=== PATIENT | male | born 1970 | race Caucasian/White ===

== ENCOUNTER 2017-10-30 07:25 | Inpatient (IN) | payer MEDICARE, MEDICAID, SELFPAY ==
[2017-10-30] VITALS (18 sets, daily range): BP systolic 136–206; BP diastolic 81–159; PULSE 82–111; RESP 16–24; TEMP 36.7–37; O2SAT 97–100; BMI 39.1; BMI 37.2; BMI 37.3
--- NOTE | 2017-10-30 07:39 | EKG12_ITS ---
Test Reason : SOB Blood Pressure : / mmHG Vent. Rate : 087 BPM Atrial Rate : 087 BPM P-R Int : 152 ms QRS Dur : 096 ms QT Int : 410 ms P-R-T Axes : 057 017 085 degrees QTc Int : 493 ms Normal sinus rhythm Left ventricular hypertrophy Nonspecific T wave abnormality Prolonged QT Abnormal ECG Confirmed by LO CRUZ, SRINI ([id number]), commercial production editor MEGA LAUGHLIN ([id number]) on 11/01/2017 5:58:10 PM Referred By: ARABELLA Confirmed By:SRINI BLANCHARD MD
--- NOTE | 2017-10-30 07:48 | ED.DCSUM_ITS ---
History of Present Illness Chief Complaint: Shortness of Breath Informant: Patient Onset: Weeks - 2; significantly worse x 4 hrs Context: Gradual Onset Timing: Continuous Quality: wheezing Location: chest Current Severity: Severe Maximum Severity: Severe Worsened by: lying flat Relieved by: albuterol for 5 min Associated Symptoms: cough Narrative: Patient has history of asthma. Has been experiencing some wheezing and seasonal allergy symptoms for the past 2 weeks, but woke up at 4:00 this morning significantly worse and very dyspneic. He has been outdoors lately but treating himself preemptively with allergy medications, that seem like they were helping at the time. Minor cough recently, however became productive and significantly worse this morning upon waking up dyspneic and wheezing. Has associated chest heaviness for that period of time as well. Has been using his albuterol inhaler but with only mild and temporary relief. No known history of heart problems. No peripheral swelling. - Past Medical History (1) Asthma Status: Chronic (2) Bipolar disorder Status: Chronic (3) Hypertension Status: Chronic (4) Hypertensive chronic kidney disease with stage 1 through stage 4 chronic kidney disease, or chronic kidney disease Status: Chronic Past Medical History - Allergies and Home Meds Allergies/Adverse Reactions: Allergies acetaminophen [From Vicodin] Allergy (Verified 10/30/17 07:27) Itching hydrocodone bitartrate [From Vicodin] Allergy (Verified 10/30/17 07:27) Itching Surgical History: cholecystectomy Smoking Status: Never smoker Drugs: None Review of Systems All systems negative except as indicated General: Reports: Malaise. Denies: Fever ENT: Denies: Bilateral ear pain Cardiovascular: Reports: Chest pain. Denies: Palpitations, Heart racing Respiratory: Reports: Dyspnea, Cough, Sputum, Dyspnea on exertion, Orthopnea, Paroxysmal nocturnal dyspnea - this AM Gastrointestinal: Denies: Abdominal pain, Nausea, Vomiting, Diarrhea, Melena, Hematochezia Genitourinary: Denies: Dysuria, Hematuria Musculoskeletal: Denies: Myalgias, Neck pain, Back pain Physical Exam Vital Signs/Narrative: Vital Signs Temp Pulse Resp BP Pulse Ox 10/30/17 07:25 98.6 F 103 H 24 H 177/118 H 97 Inital Vital Signs reviewed: Yes General: Well nourished, Well developed Head: Normocephalic, Atraumatic Eyes: Perrl, EOMI ENT: Moist mucous membranes, No rhinorrhea, TM's clear, - - POP clear. Negative for: Sinus tenderness Neck: Supple, Nontender, No lymphadenopathy, No JVD Cardiovascular: Regular rate, Regular rhythm, No murmurs, Tachycardia Respiratory: Wheezing - diffusely expiratory. symmetric BS bilat., Decreased Air Movement, Chest tenderness - mild right lower chest and left lateral chest, - - mild resp distress; speaking in 3-5 word sentences. Negative for: Rales, Rhonchi Abdomen: Soft, Nontender, Nondistended, Normal bowel sounds Back: Nontender, Normal Inspection Extremities: Nontender, No edema Skin: Normal color, No rash Neurological: Alert, Oriented x3, Cranial nerves II-XII grossly intact, Normal Strength, Normal Sensation Psychological: - - mildly anxious Diagnostic/Tx/Re-eval Impressions Chest X-Ray 10/30/17 08:50 IMPRESSION: Mild interstitial edema. Electronically Signed: Lalito Sanford DO at 9:10 EDT Tel , Service support , 10/30/17 08:50 Chest PA and Lateral [RAD] Stat Laboratory Results 10/30/17 10/30/17 10/30/17 Range/Units 08:05 08:05 08:05 WBC 9.9 (4.4-11.0) K/mm3 RBC 5.07 (4.6-6.2) M/mm3 Hgb 14.1 (13.0-16.5) g/dl Hct 41.8 (40-54) % MCV 82.4 (80-94) fL MCH 27.8 (27.0-32.0) pg MCHC 33.7 (32-36) g/gl RDW 15.0 H (11.6-14.6) % RDW Differential 45.1 H (35.1-43.9) fl Plt Count 238 (150-450) K/mm3 MPV 10.3 (6.2-12.0) fl Immature Gran % (Auto) 0.200 (0.0-0.9) % Neut % (Auto) 73.0 H (47-70) % Lymph % (Auto) 18.7 L (19-41) % [place] % (Auto) 5.5 (0-10) % Eos % (Auto) 2.4 (0-5) % Baso % (Auto) 0.2 (0-1) % Absolute Neuts (auto) 7.2 (2.0-7.7) X10^3/uL Absolute Lymphs (auto) 1.85 (0.83-4.51) X10^3/ul Total Counted Not Reportable Sodium 142 (136-145) mmol/L Potassium 4.2 (3.5-5.1) mmol/L Chloride 108 H (98-107) mmol/L Carbon Dioxide 23.0 (21.0-32.0) mmol/L Anion Gap 11 (5-15) BUN 20 H (7-18) mg/dL Creatinine 1.68 H (0.70-1.30) mg/dL Est GFR (MDRD) Af Amer 57 L (>60) mL/min Est GFR (MDRD) Non-Af 47 L (>60) mL/min BUN/Creatinine Ratio 11.9 (10-20) RATIO Glucose 96 (74-106) mg/dL Lactic Acid 1.6 (0.4-2.0) mmol/L Calcium 8.9 (8.5-10.1) mg/dL Troponin I < 0.015 (<0.045) ng/mL B-Natriuretic Peptide (0-100) pg/mL 10/30/17 Range/Units 08:05 WBC (4.4-11.0) K/mm3 RBC (4.6-6.2) M/mm3 Hgb (13.0-16.5) g/dl Hct (40-54) % MCV (80-94) fL MCH (27.0-32.0) pg MCHC (32-36) g/gl RDW (11.6-14.6) % RDW Differential (35.1-43.9) fl Plt Count (150-450) K/mm3 MPV (6.2-12.0) fl Immature Gran % (Auto) (0.0-0.9) % Neut % (Auto) (47-70) % Lymph % (Auto) (19-41) % [place] % (Auto) (0-10) % Eos % (Auto) (0-5) % Baso % (Auto) (0-1) % Absolute Neuts (auto) (2.0-7.7) X10^3/uL Absolute Lymphs (auto) (0.83-4.51) X10^3/ul Total Counted Sodium (136-145) mmol/L Potassium (3.5-5.1) mmol/L Chloride (98-107) mmol/L Carbon Dioxide (21.0-32.0) mmol/L Anion Gap (5-15) BUN (7-18) mg/dL Creatinine (0.70-1.30) mg/dL Est GFR (MDRD) Af Amer (>60) mL/min Est GFR (MDRD) Non-Af (>60) mL/min BUN/Creatinine Ratio (10-20) RATIO Glucose (74-106) mg/dL Lactic Acid (0.4-2.0) mmol/L Calcium (8.5-10.1) mg/dL Troponin I (<0.045) ng/mL B-Natriuretic Peptide 426.1 H (0-100) pg/mL - Rhythm Strip Rhythm Strip: Sinus Rhythm Rate: 90 Ectopy: None - EKG 1 Interpretation: Sinus Rhythm, No Acute Injury Pattern, Non-Specific ST Changes - laterally. no acute EMMY or STD., - - nml axis Prior: No Prior - old not avail - Medical Decision Making Workup shows pulmonary edema and chronic kidney disease. His BNP is 421, however in context of chronic kidney problems, this is very nonspecific and really not helpful. He is having chest discomforts, but EKG and troponin showed no acute injury. His initial blood pressure was high in 170s, so he was initially treated with nebulizers, and had some mild improvement. However, on reevaluation his blood pressure is higher, not lower. His systolic is over 200 now so we are treating with antihypertensives and will admit to the hospital. His respiratory status is relatively stable although he states he is still symptomatic, I do not think he needs to be in the ICU right now, although if he necessitated an antihypertensive drip, that could change. Dr. Kasper will evaluate. ED Disposition - Plan for ED Patient: Disposition: Acute Care Hospital [facility] Chief Complaint: Shortness of Breath Diagnosis: Pulmonary edema, Hypertensive chronic kidney disease with stage 1 through stage 4 chronic kidney disease, or chronic kidney disease, Asthma
[2017-10-30] MEDS: Ipratropium/Albuterol Sulfate 3 ML AMPUL.NEB INHALATION ×4 (07:59→23:09)
[2017-10-30] MEDS: Albuterol 2.5 MG/3 ML VIAL.NEB. INHALATION ×3 (07:59→13:19)
[2017-10-30] MEDS: MethylPREDNISolone 125 MG/2 ML Vial IV (08:13)
[2017-10-30 08:18] LABS: Absolute Lymphocyte Count 1.85 X10^3/ul (0.83-4.51); Absolute Neutrophil Count 7.2 X10^3/uL (2.0-7.7); Basophil# 0.02 X10^3/uL; Basophil% 0.2 % (0-1); Eosinophil# 0.24 X10^3/uL; Eosinophils% 2.4 % (0-5); Hematocrit 41.8 % (40-54); Hemoglobin 14.1 g/dl (13.0-16.5); Lymphocyte # 1.85 X10^3/ul (4.0); Lymphocyte % 18.7 % (19-41); Mean Corp Hgb Conc 33.7 g/gl (32-36); Mean Corpuscular Hgb 27.8 pg (27.0-32.0); Mean Corpuscular Volume 82.4 fL (80-94); Mean Platelet Vol. 10.3 fl (6.2-12.0); Monocyte# 0.54 X10^3/uL; Monocyte% 5.5 % (0-10); Neutrophil # 7.22 X10^3/uL (2.7-7.7); Platelet Count 238 K/mm3 (150-450); RBC Distribution Width SD 45.1 fl (35.1-43.9); Red Blood Count 5.07 M/mm3 (4.6-6.2); White Blood Count 9.9 K/mm3 (4.4-11.0)
[2017-10-30 08:20] LABS: POSITIVE COUNT NO; POSITIVE DIFFERENTIAL NO; POSITIVE MORPHOLOGY NO
[2017-10-30 08:34] LABS: Anion Gap 11 (5-15); BUN 20 mg/dL (7-18); BUN/Creat Ratio 11.9 RATIO (10-20); Calcium,Total 8.9 mg/dL (8.5-10.1); Chloride 108 mmol/L (98-107); Creatinine, Serum 1.68 mg/dL (0.70-1.30); EST Glomerular Filtration Rate 47 mL/min (>60); Est Glom Filt Rate - Afr Amer 57 mL/min (>60); Glucose 96 mg/dL (74-106); Potassium 4.2 mmol/L (3.5-5.1); Sodium Level 142 mmol/L (136-145)
[2017-10-30 08:39] LABS: Lactic Acid 1.6 mmol/L (0.4-2.0)
[2017-10-30 08:46] LABS: BNP,B-Type NATRIURETIC PEPTIDE 426.1 pg/mL (0-100)
--- NOTE | 2017-10-30 08:50 | RAD_ITS ---
STUDY: X-RAY CHEST REASON FOR EXAM: Male, 47 years old. Chest pain, shortness of breath TECHNIQUE: PA and lateral views of the chest. COMPARISON: 05/17/2014 FINDINGS: Cardiac monitoring leads overlie the chest. The lungs are hyperinflated. There is interstitial edema seen with Carl B lines noted at the lung bases. There is no demonstrated pleural abnormality. Normal size heart. Normal mediastinum and eris. Normal visualized pulmonary arteries. There is atherosclerotic tortuosity of the aortic arch and descending thoracic aorta. There are diffuse degenerative changes of the visualized thoracic spine. Normal visualized ribs, clavicles, and shoulders. Cholecystectomy clips are seen in the right upper quadrant of the abdomen. RAD/Chest PA and Lateral IMPRESSION: Mild interstitial edema. Electronically Signed: Lalito Sanford DO at 9:10 EDT Tel , Service support ,
--- NOTE | 2017-10-30 10:25 | DT_ITS ---
This patient was seen during an EMR downtime October 23, 2017 - October 30, 2017. This patient may have a combination of paper and electronic documentation or all paper documentation. All documentation is viewable within the e-chart portion of [facility] for each patient visit.
[2017-10-30] MEDS: hydrALAZINE 20 MG/ML Vial IV (11:00)
--- NOTE | 2017-10-30 11:19 | CASEMGMT ---
Social Work Note Face to face with pt to complete initial assessment as he is targeted for admission. Introduced self and role at [facility]. The [place]. DME consists of canes, but the pt denies using them at his baseline. He is indpenedent with ADL's and identifies his mother, brother and step mother as supports. Claims that his daughter recently moved back to the area as well. States that he gets SSI, and approximately $10,700/year. Reports to have Medicare, Medicaid and [employer] for Rx coverage. He has a hx of Bipolar II and sees a counselor. Denies substance abuse. Does not anticipate discharge needs, but is made aware that RN CM will f/u on unit to confirm. Valerie Nicole, HEALTH FACILITIES SURVEYOR, [employer]
[2017-10-30] MEDS: predniSONE 20 MG Tablet 40 MG PO (13:36)
--- NOTE | 2017-10-30 14:52 | PCM.HP.STD ---
Problem List (1) Acute asthma exacerbation Status: Acute (2) Hypertensive urgency Status: Acute (3) Pulmonary edema Status: Acute (4) Hypertensive chronic kidney disease with stage 1 through stage 4 chronic kidney disease, or chronic kidney disease Status: Chronic (5) Hypertension Status: Chronic (6) Bipolar disorder Status: Chronic (7) Asthma Status: Chronic History of Present Illness Date of Admission: 10/30/17 Chief Complaint: shortness of breath The patient is a 47 year old M presents with 1 week h/o shortness of breath. Has been having to use his MDI 4-5x/day, w/o relief (previously was 0-1 x/day). Also with PND and orthopnea. +Hemoptysis ranging from streaks to globs. CP with cough. Presented to ED and had slightly elevated BNP with CKD. Received Solu-medrol + BDs. Currently feeling better. Was also noted to be in HTN urgency w BP of 206/159. Is self-treating his BP at home given change to insurance.[] Past Medical History Past Medical History (Chronic Problems): Chronic Problems Hypertensive chronic kidney disease with stage 1 through stage 4 chronic kidney disease, or chronic kidney disease (Chronic) Hypertension (Chronic) Bipolar disorder (Chronic) Asthma (Chronic) Allergies acetaminophen [From Vicodin] Allergy (Verified 10/30/17 07:27) Itching hydrocodone bitartrate [From Vicodin] Allergy (Verified 10/30/17 07:27) Itching Home Medications: Ambulatory Orders Medication Instructions Recorded Albuterol Inhaler [Ventolin Hfa 2 puff INHALATION Q6H PRN PRN 09/13/16 (SP)] Surgical History: cholecystectomy Smoking Status: Never smoker Tobacco Use: Secondhand Drugs: None - *Family History Maternal History Items: Asthma Review of Systems Constitutional: Reports: Chills. Denies: Anorexia, Fever Eyes: Denies: Blurred vision, Double vision HEENT: Denies: Head Aches, Sinus Congestion, Sinus Drainage Cardiovascular: Reports: Chest Pain. Denies: Edema Respiratory: Reports: Cough, Hemoptysis, Shortness of Breath, Shortness of breath upon exertion, Sputum production Gastrointestinal: Denies: Abdominal Pain, Nausea, Vomiting Genitourinary: Denies: Dysuria Musculoskeletal: Denies: Joint Pain, Joint Tenderness Skin: Denies: Dryness, Lesions Neurological: Denies: Numbness, Tingling, Focal weakness Psychiatric: Denies: Anxiety, Depression Endocrine: Denies: Change in Body Habitus Hematologic/ Lymphatic: Denies: Easy Bruising, Easy Bleeding, Hx of blood clot VTE Information - Inpt Only VTE Present on Admission: No VTE Pharm Prophylaxis ordered?: Yes Patient Problems: Active and Suspected Problems Pulmonary edema (Acute) Acute asthma exacerbation (Acute) Hypertensive urgency (Acute) - Physical Exam General: Alert, Cooperative, No apparent distress, - - no resp distress. no conversational dyspnea HEENT: Atraumatic, Normocephalic Oral: Moist Mucosa, No Gingival or Mucosal Lesions/ Ulcerations Neck: No Nodes, Thyroid Normal Size and Texture Lungs: Clear to auscultation, No rhonchi, No wheeze, Diminished Cardiovascular: Regular rate, Regular Rhythm, Normal S1, Normal S2, No murmurs Abdomen: Bowel Sounds Present, Soft, Non Tender, Non-Distended, No Hepato-splenomegaly Extremities: No edema, No Calf Tenderness Skin: No rashes, No breakdown Musculoskeletal: No Tenderness to Palpation of Joints or Extremities, No Muscle Wasting Neurological: Neuro grossly intact, Muscle tone normal, Coordination normal Psych/Mental Status: Normal Affect, Appropriate Vital Signs Temp Pulse Resp BP Pulse Ox 36.7 C 98 24 H 182/94 H 98 10/30/17 11:53 10/30/17 14:47 10/30/17 14:47 10/30/17 11:53 10/30/17 13:19 Oxygen Flow Rate (L/min) 2 Oxygen Delivery Method Nasal Cannula Weight: 114.441 kg Body Mass Index (BMI) 37.2 Intake and Output for Last 24 Hours 10/28/17 10/29/17 10/30/17 23:59 23:59 23:59 Intake Total 300 / 300 Balance 300 / 300 Laboratory Tests Past 24 Hrs 10/30/17 11:55 Troponin I 0.016 Assessment/Plan All Active Problems Pulmonary edema (Acute) Acute asthma exacerbation (Acute) Hypertensive urgency (Acute) 1. Acute asthma exacerbation: BDs, prednisone follow up with pulm as outpt 2. HTN urgency: improved start Norvasc 5mg 3. Hemoptysis: check Chest CT to eval for any acute process 4. CKD 3 Monitor avoid nephrotoxic agents 5. DVT proph: SQ heparin. Code Visit Inpatient E&M: 37466 Init Hosp L3
--- NOTE | 2017-10-30 15:02 | HP.PCM_ITS ---
Problem List (1) Acute asthma exacerbation Status: Acute (2) Hypertensive urgency Status: Acute (3) Pulmonary edema Status: Acute (4) Hypertensive chronic kidney disease with stage 1 through stage 4 chronic kidney disease, or chronic kidney disease Status: Chronic (5) Hypertension Status: Chronic (6) Bipolar disorder Status: Chronic (7) Asthma Status: Chronic History of Present Illness Date of Admission: 10/30/17 Chief Complaint: shortness of breath The patient is a 47 year old M presents with 1 week h/o shortness of breath. Has been having to use his MDI 4-5x/day, w/o relief (previously was 0-1 x/day). Also with PND and orthopnea. +Hemoptysis ranging from streaks to globs. CP with cough. Presented to ED and had slightly elevated BNP with CKD. Received Solu- medrol + BDs. Currently feeling better. Was also noted to be in HTN urgency w BP of 206/159. Is self-treating his BP at home given change to insurance.[] Past Medical History Past Medical History (Chronic Problems): Chronic Problems Hypertensive chronic kidney disease with stage 1 through stage 4 chronic kidney disease, or chronic kidney disease (Chronic) Hypertension (Chronic) Bipolar disorder (Chronic) Asthma (Chronic) Allergies acetaminophen [From Vicodin] Allergy (Verified 10/30/17 07:27) Itching hydrocodone bitartrate [From Vicodin] Allergy (Verified 10/30/17 07:27) Itching Home Medications: Ambulatory Orders Medication Instructions Recorded Albuterol Inhaler [Ventolin Hfa 2 puff INHALATION Q6H PRN PRN 09/13/16 (SP)] Surgical History: cholecystectomy Smoking Status: Never smoker Tobacco Use: Secondhand Drugs: None - *Family History Maternal History Items: Asthma Review of Systems Constitutional: Reports: Chills. Denies: Anorexia, Fever Eyes: Denies: Blurred vision, Double vision HEENT: Denies: Head Aches, Sinus Congestion, Sinus Drainage Cardiovascular: Reports: Chest Pain. Denies: Edema Respiratory: Reports: Cough, Hemoptysis, Shortness of Breath, Shortness of breath upon exertion, Sputum production Gastrointestinal: Denies: Abdominal Pain, Nausea, Vomiting Genitourinary: Denies: Dysuria Musculoskeletal: Denies: Joint Pain, Joint Tenderness Skin: Denies: Dryness, Lesions Neurological: Denies: Numbness, Tingling, Focal weakness Psychiatric: Denies: Anxiety, Depression Endocrine: Denies: Change in Body Habitus Hematologic/ Lymphatic: Denies: Easy Bruising, Easy Bleeding, Hx of blood clot VTE Information - Inpt Only VTE Present on Admission: No VTE Pharm Prophylaxis ordered?: Yes Patient Problems: Active and Suspected Problems Pulmonary edema (Acute) Acute asthma exacerbation (Acute) Hypertensive urgency (Acute) - Physical Exam General: Alert, Cooperative, No apparent distress, - - no resp distress. no conversational dyspnea HEENT: Atraumatic, Normocephalic Oral: Moist Mucosa, No Gingival or Mucosal Lesions/ Ulcerations Neck: No Nodes, Thyroid Normal Size and Texture Lungs: Clear to auscultation, No rhonchi, No wheeze, Diminished Cardiovascular: Regular rate, Regular Rhythm, Normal S1, Normal S2, No murmurs Abdomen: Bowel Sounds Present, Soft, Non Tender, Non-Distended, No Hepato- splenomegaly Extremities: No edema, No Calf Tenderness Skin: No rashes, No breakdown Musculoskeletal: No Tenderness to Palpation of Joints or Extremities, No Muscle Wasting Neurological: Neuro grossly intact, Muscle tone normal, Coordination normal Psych/Mental Status: Normal Affect, Appropriate Vital Signs Temp Pulse Resp BP Pulse Ox 36.7 C 98 24 H 182/94 H 98 10/30/17 11:53 10/30/17 14:47 10/30/17 14:47 10/30/17 11:53 10/30/17 13:19 Oxygen Flow Rate (L/min) 2 Oxygen Delivery Method Nasal Cannula Weight: 114.441 kg Body Mass Index (BMI) 37.2 Intake and Output for Last 24 Hours 10/28/17 10/29/17 10/30/17 23:59 23:59 23:59 Intake Total 300 / 300 Balance 300 / 300 Laboratory Tests Past 24 Hrs 10/30/17 11:55 Troponin I 0.016 Assessment/Plan All Active Problems Pulmonary edema (Acute) Acute asthma exacerbation (Acute) Hypertensive urgency (Acute) 1. Acute asthma exacerbation: * BDs, prednisone * follow up with pulm as outpt 2. HTN urgency: * improved * start Norvasc 5mg 3. Hemoptysis: * check Chest CT to eval for any acute process 4. CKD 3 * Monitor * avoid nephrotoxic agents 5. DVT proph: SQ heparin. Code Visit Inpatient E&M: 77143 Init Hosp L3
--- NOTE | 2017-10-30 15:04 | CT_ITS ---
STUDY: CT CHEST WITHOUT CONTRAST REASON FOR EXAM: Male, 47 years old. Hemoptysis. Cough. RADIATION DOSAGE (If Supplied By Facility): CTDIvol = ( 19.23 ) mGy, DLP = ( 691.80 ) mGycm TECHNIQUE: Transaxial imaging was performed without the administration of intravenous contrast material. Coronal and sagittal reformatted images were created. Individualized dose optimization techniques were used for this CT. COMPARISON: 09/13/2016 FINDINGS: There are trace bilateral pleural effusions with overlying atelectasis. There are no pulmonary infiltrates. There is no pneumothorax. The heart and pericardium are within normal limits. There is no thoracic lymphadenopathy. There is no evidence of thoracic aortic aneurysm. Images through the upper abdomen demonstrate no significant abnormality. There are no destructive osseous lesions. CT/Chest without Contrast IMPRESSION: Trace bilateral pleural effusions with overlying atelectasis. Otherwise, clear lungs. Electronically Signed: Chung Chester, at 16:48 EDT Tel , Service support ,
[2017-10-30] MEDS: amLODIPine 5 MG Tablet PO (16:15)
[2017-10-30] MEDS: Acetaminophen 325 MG Tablet 650 MG PO (19:02)
[2017-10-30] MEDS: Heparin Injection (Vial) 5,000 UNIT/ML VIAL 5000 UNIT SC (20:56)
[2017-10-30] MEDS: Ibuprofen 600 MG Tablet PO (22:12)
[2017-10-31] VITALS (7 sets, daily range): BP systolic 147–155; BP diastolic 79–96; PULSE 94–101; RESP 16–18; TEMP 36.6–36.8; O2SAT 96–99
[2017-10-31 06:21] LABS: Anion Gap 10 (5-15); BUN 25 mg/dL (7-18); BUN/Creat Ratio 14.3 RATIO (10-20); Chloride 110 mmol/L (98-107); Creatinine, Serum 1.75 mg/dL (0.70-1.30); EST Glomerular Filtration Rate 45 mL/min (>60); Est Glom Filt Rate - Afr Amer 54 mL/min (>60); Glucose 127 mg/dL (74-106); Potassium 4.2 mmol/L (3.5-5.1); Sodium Level 139 mmol/L (136-145)
[2017-10-31] MEDS: Heparin Injection (Vial) 5,000 UNIT/ML VIAL 5000 UNIT SC (09:14)
[2017-10-31] MEDS: predniSONE 20 MG Tablet 40 MG PO (09:14)
[2017-10-31] MEDS: amLODIPine 5 MG Tablet PO (09:23)
[2017-10-31] MEDS: Ipratropium/Albuterol Sulfate 3 ML AMPUL.NEB INHALATION (11:10)
--- NOTE | 2017-10-31 12:29 | PCM.DC ---
- Discharge Diagnoses Current Active Problems: Current Active and Chronic Problems Pulmonary edema (Acute) Acute asthma exacerbation (Acute) Hypertensive urgency (Acute) Hypertensive chronic kidney disease with stage 1 through stage 4 chronic kidney disease, or chronic kidney disease (Chronic) Asthma (Chronic) You will use the following diet at home:: No restrictions Your food should be the consistency of: Regular Discharge Activity: Return to Normal Activity Allergies/Adverse Reactions: Allergies hydrocodone bitartrate [From Vicodin] Allergy (Verified 10/30/17 07:27) Itching Medications to take at Discharge Albuterol Inhaler [Ventolin Hfa] 2 puff INHALATION Q6H PRN PRN #1 inhaler 10/31/17 Budesonide/Formoterol Fumarate [Symbicort 160-4.5 Mcg Inhaler] 10.2 gm IH BID 30 Days hfa.aer.ad 10/31/17 Prednisone 10 mg PO UD #30 tab 10/31/17 The following prescriptions were given: Albuterol Inhaler [Ventolin Hfa] 2 puff INHALATION Q6H PRN PRN #1 inhaler PRN Reason: Sob &/Or Wheezing Prednisone 10 mg PO UD #30 tab Budesonide/Formoterol Fumarate [Symbicort 160-4.5 Mcg Inhaler] 10.2 gm IH BID 30 Days hfa.aer.ad Primary Care Physician: Venkat Catalan MD [Primary Care Provider] - Within 2 Weeks Proposed Discharge Date: 10/31/17
--- NOTE | 2017-10-31 12:30 | PCM.DC.SUM ---
Discharge Date and Diagnosis Date of Admission: 10/30/17 Date of Discharge: 10/31/17 - Primary Discharge Diagnosis Active and Suspected Problems Pulmonary edema (Acute) Acute asthma exacerbation (Acute) Hypertensive urgency (Acute) - Secondary Discharge Diagnosis Chronic Problems Hypertensive chronic kidney disease with stage 1 through stage 4 chronic kidney disease, or chronic kidney disease (Chronic) Hypertension (Chronic) Bipolar disorder (Chronic) Asthma (Chronic) Hospital Course and Treatment Summary of Care Provided: The patient is a 47 year old M history of asthma who presented with progressive shortness of breath for 1 week, he used his rescue inhalers at home on multiple occasions with no improvement started to come to the emergency room for further evaluation. His chest x-ray showed mild interstitial edema, CT angiogram of the chest was also obtained and demonstrated trace bilateral pleural effusions with overlying atelectasis. Otherwise clear lungs. He was diagnosed with acute asthmatic exacerbation he was given IV steroids and bronchodilators with significant improvement. To the hospital for continued bronchodilator therapy and steroid therapy. He has not improved significantly. This was also noted to have elevated blood pressure with systolic blood pressure up to 200 on arrival to the emergency room. The patient was started on amlodipine and as needed hydralazine. He is chest x-ray and CT findings of interstitial edema and bilateral pleural effusions I recommended echocardiography to evaluate EF and other structural heart disease but patient declined and insisted on going home today. Recommend he see his primary care doctor to undergo this procedure. His asthma exacerbation this has improved, he was discharged on prednisone taper, Symbicort as well as as needed albuterol. Regarding his newly diagnosed hypertension, he was discharged on Norvasc as well as hydrochlorothiazide, and he was recommended to follow-up with her primary care doctor for further management and titration of his antihypertensive therapy. Physical exam at the time of discharge; 154/96, 94, 16, 98.3, 98% on room air. He was alert and oriented to time place and person. He did not appear to be any form of distress. S1 and S2 heard no murmur or gallop Lung exam was clear to auscultation with no adventitious sounds. Abdomen was soft nontender with normal bowel sounds. extremity exam did not reveal any edema, palpable pulses bilaterally. Neurologic exam was grossly intact. Discharge Diet: No Restrictions Discharge Activity: Return to Normal Activity Home Medications: Medications to take at Discharge Albuterol Inhaler [Ventolin Hfa] 2 puff INHALATION Q6H PRN PRN #1 inhaler 10/31/17 Amlodipine Besylate [Norvasc] 5 mg PO DAILY 30 Days #30 tablet 10/31/17 Budesonide/Formoterol Fumarate [Symbicort 160-4.5 Mcg Inhaler] 10.2 gm IH BID 30 Days hfa.aer.ad 10/31/17 Hydrochlorothiazide [Hctz] 25 mg PO DAILY 30 Days #30 tablet 10/31/17 Prednisone 10 mg PO UD #30 tab 10/31/17 Following Prescrptions Were Given to Patient: Albuterol Inhaler [Ventolin Hfa] 2 puff INHALATION Q6H PRN PRN #1 inhaler PRN Reason: Sob &/Or Wheezing Amlodipine Besylate [Norvasc] 5 mg PO DAILY 30 Days #30 tablet Hydrochlorothiazide [Hctz] 25 mg PO DAILY 30 Days #30 tablet Prednisone 10 mg PO UD #30 tab Budesonide/Formoterol Fumarate [Symbicort 160-4.5 Mcg Inhaler] 10.2 gm IH BID 30 Days hfa.aer.ad Primary Care Physician: Venkat Catalan MD [Primary Care Provider] - Within 2 Weeks Disposition: Home Patient Condition:: Good Meaningful Use Info Meaningful Use Diagnoses (Choose all that apply): None applicable Code Visit Inpatient E&M: 84223 Disch Hosp
== END 2017-10-31 13:43 | disposition home or self-care (01) | DRG 202 ==
LOC: ED 10:48 → PCU 11:39
PROVIDERS: Emergency Provider Emergency Medicine; Family Provider Family Medicine; PCP Family Medicine; Visit Provider Internal Medicine
DX: J45.901 Unspecified asthma with (acute) exacerbation (principal); J81.0 Acute pulmonary edema; R04.2 Hemoptysis; I16.0 Hypertensive urgency; I12.9 Hypertensive chronic kidney disease with stage 1 through stage 4 chronic kidney disease, or unspecified chronic kidney disease; N18.3 Chronic kidney disease, stage 3 (moderate)
CPT/HCPCS: 36415; 71046; 71250; 80048; 83605; 83880; 84484; 85025; 87040; 93005; 94640; 99285; A4216

== ENCOUNTER → 2018-06-20 11:37 | Outpatient (CLI) | payer MEDICARE, MEDICAID, SELFPAY ==
[2018-06-20 14:10] LABS: Albumin, Serum 3.5 g/dL (3.2-5.0); BUN 17 mg/dL (7-18); BUN/Creat Ratio 10.8 RATIO (10-20); Calcium,Total 8.5 mg/dL (8.5-10.1); Chloride 110 mmol/L (98-107); Creatinine, Serum 1.58 mg/dL (0.70-1.30); EST Glomerular Filtration Rate 50 mL/min (>60); Est Glom Filt Rate - Afr Amer 61 mL/min (>60); Glucose 94 mg/dL (74-106); Phosphorus 2.3 mg/dL (2.5-4.9); Potassium 4.6 mmol/L (3.5-5.1); Sodium Level 139 mmol/L (136-145)
== END ==
PROVIDERS: Family Provider Family Medicine; PCP Family Medicine; Visit Provider Internal Medicine Nephrology
DX: N18.3 Chronic kidney disease, stage 3 (moderate) (principal)
CPT/HCPCS: 36415; 80069

== ENCOUNTER → 2018-07-16 09:07 | Outpatient (CLI) | payer MEDICARE, MEDICAID, SELFPAY ==
[2017-10-30 11:41] VITALS: BMI 37.2
[2018-07-16 10:00] LABS: Albumin, Serum 3.5 g/dL (3.2-5.0); BUN 17 mg/dL (7-18); BUN/Creat Ratio 10.3 RATIO (10-20); Calcium,Total 8.5 mg/dL (8.5-10.1); Chloride 110 mmol/L (98-107); Creatinine, Serum 1.65 mg/dL (0.70-1.30); EST Glomerular Filtration Rate 48 mL/min (>60); Est Glom Filt Rate - Afr Amer 58 mL/min (>60); Glucose 112 mg/dL (74-106); Phosphorus 2.9 mg/dL (2.5-4.9); Potassium 4.1 mmol/L (3.5-5.1); Sodium Level 140 mmol/L (136-145)
[2018-07-16 10:11] LABS: PTHIN 63.2 pg/mL (18.4-80.1)
== END ==
PROVIDERS: Family Provider Family Medicine; PCP Family Medicine; Referring Provider Internal Medicine Nephrology; Visit Provider Internal Medicine Nephrology
DX: N18.3 Chronic kidney disease, stage 3 (moderate) (principal)
CPT/HCPCS: 36415; 80069; 83970

== ENCOUNTER → 2019-02-28 10:29 | Outpatient (CLI) | payer MEDICARE, MEDICAID, SELFPAY ==
[2017-10-30 11:41] VITALS: BMI 37.2
[2019-02-28 13:16] LABS: Albumin, Serum 3.7 g/dL (3.2-5.0); BUN 26 mg/dL (7-18); Calcium,Total 9.3 mg/dL (8.5-10.1); Chloride 105 mmol/L (98-107); Creatinine, Serum 1.53 mg/dL (0.70-1.30); EST Glomerular Filtration Rate 52 mL/min (>60); Est Glom Filt Rate - Afr Amer 63 mL/min (>60); Glucose 101 mg/dL (74-106); Phosphorus 2.8 mg/dL (2.5-4.9); Potassium 5.3 mmol/L (3.5-5.1); Sodium Level 137 mmol/L (136-145)
[2019-02-28 13:20] LABS: PTHIN 25.6 pg/mL (18.4-80.1)
== END ==
PROVIDERS: Family Provider Family Medicine; PCP Family Medicine; Visit Provider Internal Medicine Nephrology
DX: N18.3 Chronic kidney disease, stage 3 (moderate) (principal)
CPT/HCPCS: 36415; 80069; 83970

== ENCOUNTER → 2019-09-10 15:28 | Outpatient (CLI) | payer MEDICARE, SELFPAY ==
[2017-10-30 11:41] VITALS: BMI 37.2
[2019-09-10 17:06] LABS: Albumin, Serum 3.8 g/dL (3.2-5.0); BUN 18 mg/dL (7-18); BUN/Creat Ratio 12.4 RATIO (10-20); Calcium,Total 8.4 mg/dL (8.5-10.1); Chloride 97 mmol/L (98-107); Creatinine, Serum 1.45 mg/dL (0.70-1.30); EST Glomerular Filtration Rate 55 mL/min (>60); Est Glom Filt Rate - Afr Amer 67 mL/min (>60); Glucose 95 mg/dL (74-106); Phosphorus 3.2 mg/dL (2.5-4.9); Potassium 4.5 mmol/L (3.5-5.1); Sodium Level 127 mmol/L (136-145)
== END ==
LOC: LAB.FUTURE 15:33 → LAB 15:34
PROVIDERS: PCP Family Medicine; Referring Provider Internal Medicine Nephrology; Visit Provider Internal Medicine Nephrology
DX: N18.3 Chronic kidney disease, stage 3 (moderate) (principal)
CPT/HCPCS: 36415; 80069; 83970

== ENCOUNTER → 2019-10-08 15:00 | Outpatient (CLI) | payer MEDICARE, SELFPAY ==
[2017-10-30 11:41] VITALS: BMI 37.2
[2019-10-08 15:54] LABS: Albumin, Serum 3.5 g/dL (3.2-5.0); BUN 11 mg/dL (7-18); BUN/Creat Ratio 8.3 RATIO (10-20); Calcium,Total 8.4 mg/dL (8.5-10.1); Chloride 90 mmol/L (98-107); Creatinine, Serum 1.33 mg/dL (0.70-1.30); EST Glomerular Filtration Rate 61 mL/min (>60); Est Glom Filt Rate - Afr Amer 74 mL/min (>60); Glucose 96 mg/dL (74-106); Potassium 4.5 mmol/L (3.5-5.1); Sodium Level 124 mmol/L (136-145)
--- OUTSIDE RECORDS SUMMARY | 2020-03-03 13:53 | XMS RPT_ITS | CCD ---
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 tablet by mouth twice * AMLODIPINE 10 MG TABLET Take 1 tablet by mouth once d* BUDESONIDE-FORMOTEROL HFA 160* TWICE A DAY PERFLUTREN LIPID MICROSPHERES* Inject 1.3 mL intravenously a * FLUTICASONE PROPIONATE 50 MCG* Use 2 Sprays in each nostril * TRAZODONE 100 MG TABLET take 1/2-3 tablets by mouth a* Problem List As Of Date 02/01/2019 Noted Resolved OTHER PSORIASIS [L40.8] INVALID FOR* Asthma [J45.909] INVALID FOR* Tooth, impacted [K01.1] 05/20/2015 Bipolar Affective Disorder [F31.9] Elevated Blood Pressure Reading without Diagnos*INVALID FOR* Lumbar back pain with radiculopathy affecting r*INVALID FOR* Renal failure [N19] INVALID FOR* Obesity, Class III, BMI 40-49.9 (morbid obesity*INVALID FOR* Chronic systolic CHF (congestive heart failure)*INVALID FOR* Encounter Status:Closed by BRENDEN SAUCEDO CNP on 02/01/19 tashtoutrmelody on 201 [facility] Normal 0 01-22-2019 [facility] KEVIN TONG ([id number]) 1970 [facility] Date Time Provider Department ([id number]) 01/22/19 [facility] visit today, we recorded the following informati on about you: Allergies As of Date: 01/22/2019 Noted Allergy Reaction CODEINE 03/11/2015 9 - Itching LIDOCAINE 05/12/2005 11 - Vomiting Date Reviewed: 11/07/2018 Reviewed by: Brenden Saucedo - Fully Assessed Visit Diagnoses:Obesity, Cla ss III, BMI 40-49.9 (morbid obesity) ([facility]) [E66.01] Hypertension, essential [I10] Order(s):HGB A1C [AEXCW4O] Order #: [id number] FUTURE LIPID PANEL BASIC [SQLIPB] Order #: [id number] FUTURE Prescriptions as of 01/22/2019 Sig: ALBUTEROL SULFATE HFA 90 MCG/* inhale 2 puffs as directed ev * QUETIAPINE 50 MG TABLET Take 50 mg by mouth twice victorino* OXCARBAZEPINE 300 MG TABLET Take 300 mg by mouth twice da* LISINOPRIL 20 MG TABLET Take 1 tablet by mouth twice * CARVEDILOL 25 MG TABLET Take 1 tablet by mouth twice * AMLODIPINE 10 MG TABLET Take 1 tablet by mouth once d* BUDESONIDE-FORMOTEROL HFA 160* TWICE A DAY PERFLUTREN LIPID MICROSPHERES* Inject 1.3 mL intravenously a * FLUTICASONE PROPIONATE 50 MCG* Use 2 Sprays in each nostril * TRAZODONE 100 MG TABLET take 1/2-3 tablets by mouth a* Problem List As Of Date 01/22/2019 Noted Resolved OTHER PSORIASIS [L40.8] INVALID FOR* Asthma [J45.909] INVALID FOR* Tooth, impacted [K01.1] 05/20/2015 Bipolar Affective Disorder [F31.9] Elevated Blood Pressure Reading without Diagnos*INVALID FOR* Lumbar back pain with radiculopathy affecting r*INVALID FOR* Renal failure [N19] INVALID FOR* Obesity, Class III, BMI 40-49.9 (morbid obesity*INVALID FOR* Chronic systolic CHF (congestive heart failure)*INVALID FOR* Encounter Status:Closed by EPIC, PRODUSER on 02/06/19 Summary Purpose Family History No Family History Records Found Advance Directives No Advanced Directives Records Found Additional Source Comments FOR RECORDS PERTAINING TO PATIENTS WHO ARE OR HAVE BEEN ENROLLED IN A CHEMICAL DEPENDENCY/SUBSTANCE ABUSE PROGRAM, SOME INFORMATION MAY BE OMITTED. This clinical summary was aggregated from multiple sources. Caution should be exercised in using it in the provision of clinical care. This summary normalizes information from multiple sources, and as a consequence, information in this document may materially changethe coding, format and clinical context of patient data. In addition, data may be omittedin some cases. CLINICAL DECISIONS SHOULD BE BASED ON THE PRIMARY CLINICAL RECORDS. [facility] provides no warranty or guarantee of the accuracy or completeness of information in this document. UNRECOGNIZED CONTENT PROVIDED BELOW FOR UNRECOGNIZED SECTION No Status Records Found UNRECOGNIZED CONTENT PROVIDED BELOW FOR UNRECOGNIZED SECTION INFORMATION SOURCE DATE CREATED AUTHOR AUTHOR'S ORGANIZATIO N 12/13/2019 [facility] tresa
== END ==
PROVIDERS: PCP Family Medicine; Referring Provider Internal Medicine Nephrology; Visit Provider Internal Medicine Nephrology
DX: E87.1 Hypo-osmolality and hyponatremia (principal)
CPT/HCPCS: 36415; 80069

== ENCOUNTER → 2019-10-09 15:51 | Outpatient (CLI) | payer MEDICARE, SELFPAY ==
[2017-10-30 11:41] VITALS: BMI 37.2
[2019-10-09 17:13] LABS: Urine Sodium 93 mmol/L (Not Establ.)
[2019-10-09 17:27] LABS: Osmolality, Urine 427 mOsm/KG
[2019-10-09 17:43] LABS: Anion Gap 7 (5-15); BUN 12 mg/dL (7-18); BUN/Creat Ratio 9.1 RATIO (10-20); Calcium,Total 8.4 mg/dL (8.5-10.1); Chloride 93 mmol/L (98-107); Creatinine, Serum 1.32 mg/dL (0.70-1.30); EST Glomerular Filtration Rate 61 mL/min (>60); Est Glom Filt Rate - Afr Amer 74 mL/min (>60); Glucose 93 mg/dL (74-106); Potassium 4.4 mmol/L (3.5-5.1); Sodium Level 126 mmol/L (136-145)
--- OUTSIDE RECORDS SUMMARY | 2020-03-03 14:55 | XMS RPT_ITS | CCD ---
:1970 External Reference #:[id number] Author Organization [employer] Care Team Providers Name Role Phone Unavailable Unavailable Unavailable Results Result Name Value Range Unit Interpretation Flag Date Location progress on 2019-11 PROGRESS HNO ID: [id number] Normal 11-26-2019 [facility] Author: Brenden (Sql Database Administrator) Ronaldo Tolentino ([id number]) Service: ? Author Type: Nurse Practitioner Type: [...] mg tablet take 1/2-3 tablets by mo [facility] at bedtime if needed for insomnia [...] HFA 90 MCG/ACTUATION AEROSOL INHALER Brenden Saucedo APRN.FRANCHISE SPECIALIST RTO in 3 months, sooner if needed. This note was partly generated using [employer] voice recognitio n dictation and may contain some misspelled or inaccurate words missed o n review. cnov on 2019-11-26 CNOV Office Visit (FAMPWS) Normal 11-26-19 20 [facility] KEVIN TONG ([id number]) 1970 [facility] Date Time Provider Department ([id number]) 11/26/19 2:20 PM BRENDEN SAUCEDO (TASH) PRINCESS [...] kidney disease) stage 3, GFR 30-59 ml/min ([facility]) - ICD9: 585.3, ICD10: N18.3 - Continue following with - LISINOPRIL 20 MG TABLET - COMP METABOLIC PANEL 4. Mild intermittent asthma without comp lication - ICD9: 493.90, ICD10: J45.20 Mild persistent Asthma stable - Continue current meds - Avoidance of triggers recommended - BUDESONIDE-FORMOTEROL HFA 160 MCG-4.5 MCG/ACTUATION AEROSO L INHALER - ALBUTEROL SULFATE HFA 90 MCG/ACTUATION AEROSOL INHALER Brenden Saucedo APRN.FRANCHISE SPECIALIST RTO in 3 months, sooner if needed. This note was partly generat ed using [employer] voice recognition dictation and may contain some [...] kidney disease) stage 3, GFR 30-59 ml/min ([facility]) [N18.3] Mild intermittent asthma without complication [J45.20] Order(s):carvedilol (COREG) 25 mg tabletTake 1 tablet by twice daily with meals.Disp: 60 tabletRfl: 3 lisinopril (ZESTRIL, PRINIVIL) 20 mg tabletTake 1 tablet by mouth twice daily.Disp: 60 tabletRfl: 3 amLODIPine (NORVASC) 10 mg tabletTake 1 tablet by mouth once daily.Disp: 30 tabletRfl: 3 COMP METABOLIC PANEL [SQCMP] Order #: [id number] FUTURE LIPID PANEL, NONFASTING [SQLIPNF] Order #: [id number] FUTURE budesonide-formoterol (SYMBICORT) 160-4.5 mcg/actuation inha lerTWICE [...] on 2019-09-10 CNPN Telephone (FAMPWS) Normal 09-10-2019 [facility] KEVIN TONG ([id number]) 1970 [facility] Date Time Provider Department ([id number]) 09/10/19 [facility] your visit today, we recorded the following informati on about you: Karl Ugalde RN 09/10/2019 10:27 AM Signed Brigida from Dr. Vasquez's office called, verified pt by name a nd date of . Brigida requested recent labs for pt's upcoming apt. CMP from 06-18-2019 faxed to [phone] Karl Ugalde RN Allergies As of Date: [...] on 2019-08 OBSOLETE Refill (FAMPWS) Normal 09-03-2019 [facility] KEVIN TONG ([id number]) 1970 [facility] Date Time Provider Department ([id number]) 09/03/19 RAGINI FERNANDEZ FAMPWS During your visit [...] 122/76 Please advise. Thank you. Ophelia Saucedo APRN.FRANCHISE SPECIALIST 09/03/2019 2:38 PM Signed The following approved medic ation requests have been transmitted electronically. Pending Prescriptions Disp Refills CARVEDILOL 25 MG TABLET 60 tablet 3 Sig: Take 1 tablet by mouth twice daily with meals. SWEETIE: No LISINOPRIL 20 MG TABLET 60 tablet 3 Sig: Take 1 tablet by mouth twice daily. SWEETEI: No AMLODIPINE 10 MG TABLET 30 tablet 3 Sig: Take 1 tablet by mouth once daily. SWEETIE: No Brenden Saucedo APRN.FRANCHISE SPECIALIST Allergies As of Date: 09/03/2019 Noted Allergy Reaction CODEINE 03/11/2015 9 - Itching LIDOCAINE 05/12/2005 11 - Vomiting Date Reviewed: 06/18/2019 Reviewed by: Karime Cummings) MOE Hartley - Fully Assessed Reason for Visit: Refill Request [94] Visit Diagnoses:Hypertension, essential [I10] Chronic systolic CHF (congestive heart failure) ([facility]) [I50.2 2] CKD (chronic kidney disease) stage 3, GFR 30-59 ml/min ([facility]) [N18.3] Mild intermittent asthma without complication [J45.20] [...] 09/03/19 progress on 2019-08 PROGRESS HNO ID: [id number] Normal 08-21-2019 [facility] Author: Fly MelgarRn) Tolentino ([id number]) Service: ? Author Type: Registered Nurse Type: Progress Notes Filed: 08/21/2019 7:25 PM Note Text: PRIMARY CARE COORDINATION QUICK NOTE Provider Action/FYI Call to Pt left a detailed message notified medications refi lled as noted below. Patient identified by name and date . Hubert Bill RN August 21, 2019 7:17 PM PROGRESS HNO ID: [id number] Normal 08-21-2019 [facility] Author: Brenden Flores) Ronaldo Tolentino ([id number]) Service: ? Author Type: Nurse Practitioner Type: [...] APRN.CNP progress on 2019-07 PROGRESS HNO ID: [id number] Normal 08-20-2019 [facility] Author: Fly Gar) Tolentino ([id number]) Service: ? Author Type: Registered Nurse Type: Progress Notes Filed: 08/21/2019 7:25 PM Note Text: PRIMARY CARE COORDINATION QUICK NOTE Provider Action/FYI Denies CP, Sob, edema, fever or cough, or wheezing, having normal allergy symptoms, has cough with sinus drainage when lying down, occ asional sneezing, is taking OTC antihistamines with relief Pt request for refill pended for PCP/ FRANCHISE SPECIALIST- No need for call back, he will check with Pharmacy Discussed discharge from Care Coordination services provided contact info for PCP practice for future needs or concerns. Pt verbalized understanding and appreciation. Instructed to wash hands frequently, clean surface, social d istancing. Pt verbalized understanding. Patient identified by name and date . Hubert Bill RN August 20, 2019 5:00 PM PROGRESS HNO ID: [id number] Normal 08-20-2019 [facility] Author: Fly Schmid (Rn) [facility] ([id number]) Service: ? 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) [I50.2 2] CKD (chronic kidney disease) stage 3, GFR 30-59 ml/min ([facility]) [N18.3] Mild intermittent asthma without complication [J45.20] [...] 2019-06 OBSOLETE Refill (FAMPWS) Normal [facility]09-[facility] KEVIN TONG ([id number]) 1970 [facility] Date Time Provider Department ([id number]) 07/09/19 RAGINI FERNANDEZ During your visit today, [...] ply of medication sent to pharmacy in [place] He is on vacation and forgot to [...] [I10] Chronic systolic CHF (congestive heart failure) ([facility]) [I50.2 2] CKD (chronic kidney disease) stage 3, GFR 30-59 ml/min ([facility]) [N18.3] Order(s):amLODIPine (NORVASC) 10 mg tabletTake 1 [...] 07/09/19 progress on 2019-05 PROGRESS HNO ID: [id number] Normal 06-18-2019 [facility] Author: Brenden Flores) Ronaldo Tolentino ([id number]) Service: ? Author Type: Nurse Practitioner Type: [...] Has be en given contact information for [facility]. Has been trying to improve [...] 100 mg tablet take 1/2-3 tablets by [facility] at bedtime if needed for insomnia No [...] labs, RTO in 3 months. Brenden Saucedo APRN.FRANCHISE SPECIALIST PROGRESS HNO ID: [id number] Normal 06-18-2019 [facility] Author: Fly Schmid (Rn) [facility] ([id number]) Service: ? Author Type: Registered Nurse Type: Progress Notes Filed: 06/18/2019 2:03 PM Note Text: PRIMARY CARE COORDINATION PRE-VISIT ASSESSMENT Provider Action/FYI: Spk with Pt who denies CP, Sob, denies dizziness, occassiona l ORTEGA, takes one ASA daily which helps. Pt noted has right foot pain, denies swelling or other unusu al symptoms Pt reports he is traveling to [place] AND he will verify if he needs [...] Cholesterol [Mass/Vol] 187 <200 mg/dL Normal 020 [facility] (87075) Comment: Result Comment: <200 mg/dL, Desirable 200-239 mg/dL, Borderline hi gh >239 mg/dL, High Performed By: #### CMP, LIPN F ####[facility] [place], [place] [phone] Cholesterol in 3.40 <2.54 mg/dL High 06-18-2019 [facility] LDL/Cholesterol in HDL [Mass Strong (77324) ratio] Comment: Result Comment: Reference: 1. National Cholesterol Educ ation Program ATP III Guideline At-A-Glance Quick Desk Reference: National Heart, Lung, and Blood [place]. National Institutes of Health. 2001: NIH Publication No. 01-3305. 2. An International Atherosc lerosis Society position paper: global recommendations for the management of dyslipidemia: executive summary, Atherosclerosis. 2014: 232(2):410-413. Performed By: #### CMP, LIPN F ####[facility] [place], [place] [phone] Cholesterol.total/Cholesterol in HDL 5.34 <5.10 mg/dL Hig h 06-18-2019 [facility] [Mass ratio] Manuel david (52120) Comment: Performed By: #### LEOLA LIPN F ####[place] [address] [place], [place] [phone] HDL Cholesterol, NF 35 >39 mg/dL Low 06-18-2019 [facility] (38798) Comment: Result Comment: 40-59 mg/dL, Acceptable >59 mg/dL, High: Negative ri sk factor for coronary heart disease <40 mg/dL, Low: Positive ris k factor for coronary heart disease Performed By: #### LEOLA, LIPN F ####[address] [phone] LDL Cholesterol, NF 119 <100 mg/dL High 06-18-2019 [facility] (92910) Comment: Result Comment: <100 mg/dL, Optimal 100-129 mg/dL, Near optimal/ above optimal 130-159 mg/dL, Borderline hi gh 160-189 mg/dL, High >189 mg/dL, Very high Secondary prevention optimal LDL Cholesterol levels are recommended to be < 70 mg/dL Performed By: #### LEOLA, LIPN F ####[address] [phone] Non HDL Chol, NF 152 <130 mg/dL High 06-18-2019 [facility] (62996) Comment: Result Comment: <130 mg/dL, Optimal 130-159 mg/dL, Near optimal/ above optimal 160-189 mg/dL, Borderline hi gh 190-219 mg/dL, High >219 mg/dL, Very high Secondary prevention optimal non HDL Cholesterol levels are recommended to be < 100 mg/dL Performed By: #### CMP, LIPN F ####[place] [address] [place], [place] [phone] Triglycerides, NF 163 <150 mg/dL High 06-18-2019 [facility] (15113) Comment: Result Comment: <150 mg/dL, Normal 150-199 mg/dL, Borderline hi gh 200-499 mg/dL, High >499 mg/dL, Very high Performed By: #### CMP, LIPN F ####[place] [address], [place] [phone]- [phone] VLDL Cholesterol, NF 33 <30 mg/dL High 0 [facility] (92017) Comment: Performed By: #### CMP, LIPN F ####[place] [address], [place] [phone]- [phone] comp metabolic panel on 2019-06-18 Albumin [Mass/Vol] 4.2 3.9-4.9 g/dL Normal 06-18-2019 [facility] (06710) Comment: Performed By: #### CMP, LIPN F ####[address], [place] [phone]- [phone] ALP [Catalytic activity/Vol] 70 38-113 U/L Normal 0 06-18-2019 [facility] (42945) Comment: Performed By: #### CMP, LIPN F ####[place] [address], [place] [phone] ALT [Catalytic activity/Vol] 23 10-54 U/L Normal 0 06-18-2019 [facility] (93807) Comment: Performed By: #### CMP, LIPN F ####[place] [address], [place] [phone] Anion gap [Moles/Vol] 14 9-18 mmol/L Normal 06-18-19 20 [facility] (13217) Comment: Performed By: #### CMP, LIPN F ####[place] [address], [place] [phone]- [phone] AST [Catalytic activity/Vol] 30 14-40 U/L Normal 0 06-18-2019 [facility] (91641) Comment: Performed By: #### CMP, LIPN F ####[place] [address], [place] [phone] Bilirubin [Mass/Vol] 0.3 0.2-1.3 mg/dL Normal 0 [facility] (75775) Comment: Performed By: #### LEOLA LIPN F ####[facility] [place], [place] [phone] Calcium [Mass/Vol] 8.9 8.5-10.2 mg/dL Normal 06-18-2019 [facility] (57507) Comment: Performed By: #### LEOLA LIPN F ####[place] [address] [place], [place] [phone] Chloride [Moles/Vol] 89 97-105 mmol/L Low 0 [facility] (94011) Comment: Performed By: #### LEOLA LIPN F ####[place] [address], [place] [phone] CO2 [Moles/Vol] 21 22-30 mmol/L Low 06-18-2019 [facility] (37370) Comment: Performed By: #### LEOLA LIPN F ####[facility] [place], [place] [phone] Creatinine [Mass/Vol] 1.31 0.73-1.22 mg/dL High 06-18-19 20 [facility] (61008) Comment: Performed By: #### CMP LIPN F ####[place] [address], [place] [phone]- [phone] eGFR- Amer. >60 Normal 06-18-2019 [facility] (37938) Comment: Performed By: #### LEOLA LIPN F ####[facility] [place], [place] [phone] GFR/1.73 sq M predicted among 58 . Normal 06-18-2019 [facility] non-blacks MDRD (S/P/Bld) [Vol (72570) rate/Area] Comment: Result Comment: eGFR (Estima aileen [...] GFR. Performed By: #### DEN BHAGAT F ####[facility] [address], [place] [phone] Glucose [Mass/Vol] 90 74-99 mg/dL Normal 06-18-2019 [facility] (29709) Comment: Result Comment: The [place] Diabetes Association (ADA) provides guidance for cutoff [...] for diagnosis of diabetes. Reference: Standards of [facility] Care in Diabetes 2016, [place] Diabetes Association. Diabetes Care. 2016.39(Suppl 1). Performed By: #### BRAXTON BHAGATN F ####[facility] [address], [place] [phone] Potassium [Moles/Vol] 4.7 3.7-5.1 mmol/L Normal 06-18-19 [facility] (46040) Comment: Performed By: #### LEOLA LIPN F ####[facility] [address], [place] [phone] Protein [Mass/Vol] 7.1 6.3-8.0 g/dL Normal 06-18-2019 [facility] (69372) Comment: Performed By: #### LEOLA LIPN F ####[facility] [address] [place], [place] [phone] Sodium [Moles/Vol] 124 136-144 mmol/L Low 06-18-2019 [facility] (04111) Comment: Performed By: #### LEOLA LIPN F ####[facility] [address] [place], [place] [phone]- [phone] Urea nitrogen [Mass/Vol] 15 9-24 mg/dL Normal 06-18 [facility] (66168) Comment: Performed By: #### LEOLA LIPN F ####[facility] [address] [place], [place] [phone] cnptoutreach on 202 CNPTOUTREACH Patient Outreach (FAMPWS) Normal 0 06-18-2019 [facility] KEVIN TONG ([id number]) 1970 [facility] Date Time Provider Department () 06/18/19 FLY [...] symptoms Pt reports he is traveling to [place] AND he will verify if he needs [...] Hartley - Fully Assessed Reason for Visit: Limnology Teacher Chronic Care [6449] Cmt: Jenae bean 06/18/2019 Reason For Visit [...] 2019-06-18 CNOV Office Visit (FAMPWS) Normal 06-18-[address] [place] [address] [facility] KEVIN TONG ([id number]) 1970 [facility] Date Time Provider Department (55345) 06/18/19 1:20 PM BRENDEN SAUCEDO ([facility]) FAMPWS During your visit today, we [...] weight gain or loss. [facility] Foot pain is improving. Not as bad as previously. Performing plantar fasciitis exercises. Asthma: Doing well overall. Using inhalers as prescribed. No wheezing, SOB, fevers. Taking allergy medication. Cardiomyopathy: Needing to establish with cardiology. Has been given contact information for [facility]. Has been trying to impr [...] kidney disease) stage 3, GFR 30-59 ml/min ([facility]) - ICD9: 585.3, ICD10: N18.3 - Continue following with nephrology. - COMP METABOLIC PANEL 5. Plantar fasciitis - ICD9: 728.71, ICD10: M72.2 - Improved, continue with otc treatments, exercises 6. Bipolar affective disorder, remission status unspecified ([facility]) - ICD9: 296.80, ICD10: F31.9 - Stable [...] or regular hard cheese Whole milk, cream Wecc-hqc-azls, most dairy creamers Real non-dairy whipped cream [...] cold Pasta/noodels (no egg yolks) Rice Bagels, Turkish muffins Potatoes Baked goods (cake, muffins, pancakes, [...] Snacks (In very limited amount) Sherbet, sorbet, Estonian ice, frozen yogurt, popsicles , jennifer food [...] kidney disease) stage 3, GFR 30-59 ml/min ([facility]) [N18.3] Plantar fasciitis [M72.2] Bipolar affective disorder, remission status unspecified ([facility]) [F31.9] Moderate persistent asthma with (acute) exacerbation [J45.41] Order(s):amLODIPine (NORVASC) 10 mg tabletTake 1 tablet by m outh once daily.Disp: 90 tabletRfl: 2 LIPID PANEL, NONFASTING [SQLIPNF] Order #: [id number] FUTURE COMP METABOLIC PANEL [SQCMP] Order #: [id number] FUTURE Prescriptions as of 06/18/2019 Sig: AMLODIPINE [...] or regular hard cheese Whole milk, cream Fwma-azq-erbn, most dairy creamers Real non-dairy whipped cream [...] cold Pasta/noodels (no egg yolks) Rice Bagels, Turkish muffins Potatoes Baked goods (cake, muffins, pancakes, [...] Snacks (In very limited amount) Sherbet, sorbet, Estonian ice, frozen yogurt, popsicles, tonny l food [...] * *Final Report* * * Normal 2018 [facility] AP/LAT/OBL RT DATE OF EXAM: Apr 05 2019 1:46PM [facility] WOX 5337 - XR FOOT 3V AP/LAT/OBL RT / (43485) PROCEDURE REASON: Pain of right heel * * * * Physician Interpretation * * * * EXAMINATION: XR FOOT 3V AP/LAT/OBL RT CLINICAL HISTORY: Heel pain Comparison: None RESULT: No acute fracture or dislocation. Left fifth metatarsal scre w. No aggressive lesion. IMPRESSION: No acute osseous abnormality. Precision Printing Worker: PSCB Transcribe Date/Time: Apr 06 2019 4:38A Dictated by : SANDRO HERRING MD This examination was interpreted and the report reviewed and electronically signed by: SANDRO HERRING MD on Apr 06 2019 4:40AM EST [id number] progress on 2019-03 PROGRESS HNO ID: [id number] Normal 04-05-2019 [facility] Author: Loli Mullins (Rt) Hardy Mitchell ([id number]) Service: ? Author Type: Jack Frame Tender Type: Progress Notes Filed: 04/05/2019 1:46 PM [...] 05, 2019 1:36 PM PROGRESS HNO ID: [id number] Normal 04-05-2019 [facility] Author: Brenden Tolentino ([id number]) Service: ? Author Type: Nurse Practitioner Type: [...] Has history of CKD, canno t take vermin exterminator NSAIDS. Has history of acute ankle fracture [...] CNOV Office Visit (FAMPWS) Normal 04-05-20 19 [facility] KENJIKEVIN J ([id number]) 1970 [facility] Date Time Provider Department (68186) 04/05/19 12:40 PM BRENDEN SAUCEDO ([facility]) FAMPWS During your visit today, we [...] ankle fracture many years ago of the merged [facility]. Past medical history, appointments, medications, [...] Order(s):XR FOOT GENERAL 3V AP/LAT/OBL R T [[id number]] Order #: [id number] FUTURE Prescriptions as of 04/05/2019 Sig: DIVALPROEX [...] podiatry if anything is concerning. Brenden Saucedo APRN.FRANCHISE SPECIALIST Disposition: Return if symptoms worsen or fail to improve. Follow-up and Disposition History Recorded Encounter Status:Closed by BRENDEN SAUCEDO CNP on 04/05/19 progress on 2019-03 PROGRESS HNO ID: [id number] Normal 04-01-2019 [facility] Author: Fly Schmid (Rn) [facility] ([id number]) Service: ? Author Type: Registered Nurse Type: Progress Notes Filed: 04/01/2019 4:34 PM Note Text: PRIMARY CARE COORDINATION INTAKE Provider Action/FYI: Spk with Pt he denies CP, denies Sob, has wheezing related t o allergy, uses Albuterol inhaler with relief Pt reports has slight right foot swelling and pain, requesti ng an appt with Pcp / FRANCHISE SPECIALIST, when seen recently it was not as [...] CNPTOUTREACH Patient Outreach (FAMPWS) Normal 1 06-01-2018 [facility] KEVIN TONG ([id number]) 1970 [facility] Date Time Provider Department (25805) 04/01/19 FLY SHCMID (RN) FAMPWS During your visit today, we recorded the following informati on about you: Hubert Bill RN 04/01/2019 4:34 PM Signed PRIMARY CARE COORDINATION INTAKE Provider Action/FYI: Spk with Pt he denies CP, denies Sob, has wheezing related to allergy, uses Albuterol inhaler with relief Pt reports has slight right foot swelling and pain, requesting an appt with Pcp / FRANCHISE SPECIALIST, when seen recently it was not as [...] Hartley - Fully Assessed Reason for Visit: Limnology Teacher Chronic Care [361] Cmt: Right Foot pain Reason For Visit [...] CHF (congestive heart failure)*11/03/2017 Encounter Status:Closed by FLY HUBERT Sidney on 04/01/19 progress on 2019-02 PROGRESS HNO ID: [id number] Normal 03-15-2019 [facility] Author: Brenden (Sql Database Administrator) Ronaldo Tolentino ([id number]) Service: ? Author Type: Nurse Practitioner Type: Progress Notes Filed: 03/15/2019 1:39 PM Note Text: Chief Complaint Patient presents with: F/U 3 Month HPI Kevin Tong is a 49 year old male who presents here t vince for Chronic Medical Conditions.. Patient presents office today for routine follow-up. History of hypertension and CHF. Previously referred to [facility] but has not scheduled with them. States that 2 days after I last saw him, his mother from cancer. Since this occurrence, jailyn spencer has been grieving, has been going to grief counseling at the [facility]. Has bipolar disease and is followed [...] ler TWICE A DAY perflutren lipid microspheres (DEFINDaixe) 1.1 mg/mL injection (to be provided with [...] file Gets together: Not on file Attends adventist service: Not on file Active member of [...] ic. Continue with plan to establish with [facility]. - COMP METABOLIC PANEL - [...] - Continue following with [facility]. 6. Grieving - ICD9: 309.0, ICD10: F43.21 - Continue with grieve counseling. Get labs today, RTO in 3 months. Brenden Saucedo APRN.FRANCHISE SPECIALIST hemoglobin a1c on 2 HbA1c (Bld) [Mass fraction] 5.8 4.3-5.6 % High [facility] (57432) Comment: Result Comment: [place] [employer] Association guidelines indicate that patients with HgbA1c in the range 5.7-6.4% are at increased risk for development of diabetes, and intervention by lifestyle modification may be beneficial. HgbA1c greater o r equal to 6.5% is considered diagnostic of diabetes. Performed By: #### HBA1C ### #[facility] [address] [place], [place] [phone]- [phone] HbA1c (Bld) [Mass fraction] 120 mg/dL Normal [facility] (38002) Comment: Result Comment: eAG: (Estima aileen average glucose) is a calculated value from HgbA1c and is apprenticeship training representative of the average blood glucose level in the last 2-3 month period. Performed By: #### HBA1C ### #[place] [phone] comp metabolic panel on 2019-03-15 Albumin [Mass/Vol] 4.1 3.9-4.9 g/dL Normal 03-15-2019 [facility] (47476) Comment: Performed By: #### Smiley DANIELS MP ####[address] [phone] ALP [Catalytic activity/Vol] 86 38-113 U/L Normal 1 [facility] (57269) Comment: Performed By: #### Smiley DANIELS MP ####[address] [place], [place] [phone]- [phone] ALT [Catalytic activity/Vol] 15 10-54 U/L Normal 1 [facility] (53114) Comment: Performed By: #### Smiley DANIELS MP ####[address] [phone] Anion gap [Moles/Vol] 13 9-18 mmol/L Normal 03-15- 19 [facility] (16089) Comment: Performed By: #### Smiley DANIELS MP ####[address] [place], [place] [phone] AST [Catalytic activity/Vol] 23 14-40 U/L Normal 1 [facility] (94184) Comment: Performed By: #### Smiley DANIELS MP ####[place] [address] [place], [place] [phone] Bilirubin [Mass/Vol] 0.3 0.2-1.3 mg/dL Normal 9 [facility] (51641) Comment: Performed By: #### Smiley DANIELS MP ####[place] [address] [address], [place] [phone]- [phone] Calcium [Mass/Vol] 9.3 8.5-10.2 mg/dL Normal 03-15-2019 [facility] (76712) Comment: Performed By: #### Smiley DANIELS MP ####[place] [address] [address], [place] [phone]- [phone] Chloride [Moles/Vol] 102 97-105 mmol/L Normal 9 [facility] (54707) Comment: Performed By: #### Smiley DANIELS MP ####[place] [address] [address] [place], [place] [phone]- [phone] CO2 [Moles/Vol] 22 22-30 mmol/L Normal 03-15-2019 [facility] (62272) Comment: Performed By: #### Smiley DANIELS MP ####[place] [address] [address] [place], [place] [phone] Creatinine [Mass/Vol] 1.43 0.73-1.22 mg/dL High 03-15-20 19 [facility] (30086) Comment: Performed By: #### Smiley DANIELS MP ####[place] [address] [address], [place] [phone]- [phone] eGFR- Amer. >60 Normal 03-15-2019 [facility] (12136) Comment: Performed By: #### Smiley DANIELS MP ####[place] [address] [address] [place], [place] [phone]- [phone] GFR/1.73 sq M predicted among 53 . Normal 03-15-2019 [facility] non-blacks MDRD (S/P/Bld) [Vol (68223) rate/Area] Comment: Result Comment: eGFR (Estima aileen [...] GFR. Performed By: #### Smiley DANIELS MP ####[facility] [place], [place] [phone]- [phone] Glucose [Mass/Vol] 96 74-99 mg/dL Normal 03-15-2019 [facility] (95355) Comment: Result Comment: The [place] Diabetes Association (ADA) provides guidance for cutoff [...] for diagnosis of diabetes. Reference: Standards of [facility] Care in Diabetes 2016, [place] [employer] Association. Diabetes Care. 2016.39(Suppl 1). Performed By: #### Smiley DANIELS MP ####[facility] [address] [place], [place] [phone]- [phone] Potassium [Moles/Vol] 4.4 3.7-5.1 mmol/L Normal 03-15-20 [facility] (93850) Comment: Performed By: #### Smiley DANIELS MP ####[facility] [address] [place], [place] [phone]- [phone] Protein [Mass/Vol] 7.0 6.3-8.0 g/dL Normal 03-15-2019 [facility] (48912) Comment: Performed By: #### Smiley DANIELS MP ####[facility] [place], [place] [phone]- [phone] Sodium [Moles/Vol] 137 136-144 mmol/L Normal 03-15-2019 [facility] (68975) Comment: Performed By: #### Smiley DANIELS MP ####[facility] [place], [place] [phone]- [phone] Urea nitrogen [Mass/Vol] 15 9-24 mg/dL Normal 03-15 [facility] (00245) Comment: Performed By: #### Smiley DANIELS MP ####[facility] [place], [place] [phone]- [phone] cnov on 2019-03-15 CNOV Office Visit (FAMPWS) Normal 03-15-[address] [place] [address] [facility] KEVIN TONG ([id number]) 1970 [facility] Date Time Provider Department (72079) 03/15/19 1:20 PM BRENDEN SAUCEDO ([facility]) FAMPWS During your visit today, we [...] of hypertension and CHF. Previously referred to [facility] but has not scheduled with [...] 100 mg tablet take 1/2-3 tablets by [facility] at bedtime if needed for insomnia No [...] file Gets together: Not on file Attends adventist service: Not on file Active member of [...] Asymptomatic. Continue with plan to establish with [facility]. - COMP METABOLIC PANEL - CBC + DIFF 3. Mild intermittent asthma without comp lication - ICD9: 493.90, ICD10: J45.20 Mild persistent Asthma stable - Continue current meds - Avoidance of triggers recommended 4. CKD (chronic kidney disease) stage 3, GFR 30-59 ml/min ([facility]) - ICD9: 585.3, ICD10: N18.3 - Stable, continue to monitor - COMP METABOLIC PANEL 5. Bipolar affective disorder, remission status unspecified ([facility]) - ICD9: 296.80, ICD10: F31.9 - Continue following with [facility]. 6. Grieving - ICD9: 309.0, ICD10: F43.21 - Continue with [facility] counseling. Get labs today, RTO in 3 months. Brenden Saucedo APRN.FRANCHISE SPECIALIST Referring Provider: SELF [200] Allergies As of Date: 03/15/2019 Noted Allergy Reaction CODEINE 03/11/2015 9 - Itching LIDOCAINE 05/12/2005 11 - Vomiting Date Reviewed: 03/15/2019 Reviewed by: Karime (Moe) MOE Hartley - Fully Assessed Reason for Visit: F/U 3 Month [443] Primary Visit Diagnosis:Hypertension, essential [I10] Other Visit Diagnoses:Chronic systolic CHF (congestive hea rt failure) ([facility]) [I50.22] Mild intermittent asthma without complication [J45.20] CKD (chronic kidney disease) stage 3, GFR 30-59 ml/min ([facility]) [N18.3] Bipolar affective disorder, remission status unspecified ([facility]) [F31.9] Grieving [F43.21] Order(s):COMP METABOLIC PANEL [SQCMP] Order #: [id number] ÓSCAR VALERO CBC + DIFF [SQCBCDIF] Order #: [id number] FUTURE Prescriptions as of 03/15/2019 Sig: ALBUTEROL [...] Abs Baso 0.04 <0.11 k/uL Normal 03-15-2019 [facility] (00830) Comment: Performed By: #### CBCSmiley MANCILLA MP #### [facility] [address] [place], [place] [phone] Abs Jennings 0.63 <0.87 k/uL Normal 03-15-2019 [facility] (12396) Comment: Performed By: #### CBCSmiley MANCILLA MP #### [facility] [address] [place], [place] [address] Abs Neut 3.67 1.45-7.50 k/uL Normal 03-15-2019 [facility] (17605) Comment: Performed By: #### CBCSmiley MANCILLA MP #### [facility] [address] [place], [place] [address] Absolute nRBC <0.01 <0.01 Normal 03-15-2019 [facility] (00757) Comment: Performed By: #### CBCDIF, C MP #### [facility] [address] [place] [address] Basophils/100 WBC (Bld) 0.6 % Normal 2018 [facility] (33616) Comment: Performed By: #### CBCDIF, C MP #### [facility] [address] [place] [address] DTYPE Auto Diff Normal 03-15-2019 [facility] (66813) Comment: Performed By: #### CBCDIF, C MP #### [facility] [address] [place] [phone] Eosinophils (Bld) [#/Vol] 0.54 <0.46 k/uL High 02-20 [facility] (87618) Comment: Performed By: #### CBCDIF, C MP #### [facility] [address] [place] [address] Eosinophils/100 WBC (Bld) 7.6 % Normal 02-20 [facility] (67605) Comment: Performed By: #### CBCDIF, C MP #### [facility] [address] [place] [address] Erythrocyte distribution 14.3 11.5-15.0 % Normal 03-15 [facility] width (RBC) [Ratio] [facility] (71317) Comment: Performed By: #### CBCDIF, C MP #### [facility] [address] [place] [address] Hematocrit (Bld) [Volume 40.0 39.0-51.0 % Normal 03-15 [facility] fraction] [facility] (68540) Comment: Performed By: #### CBCDIF, C MP #### [facility] [address] [place] [address] Hemoglobin (Bld) 13.0 13.0-17.0 g/dL Normal 03-15-2019 [facility] [Mass/Vol] [facility] (59859) Comment: Performed By: #### JEREMIAH C MP #### [facility] [address] [place], [place] [address] Lymphocytes (Bld) [#/Vol] 2.25 1.00-4.00 k/uL Normal 02-20 [facility] (10551) Comment: Performed By: #### JEREMIAH C MP #### [facility] [address] [place], [place] [address] Lymphocytes/100 WBC (Bld) 31.5 % Normal 02-20 [facility] (88778) Comment: Performed By: #### JEREMIAH C MP #### [address] [address] MCH (RBC) [Entitic mass] 28.4 26.0-34.0 pG Normal 03-15 [facility] (87964) Comment: Performed By: #### JEREMIAH C MP #### [facility] [address] [place], [place] [address] MCHC (RBC) [Mass/Vol] 32.5 30.5-36.0 g/dL Normal 03-15-20 19 [facility] (64519) Comment: Performed By: #### CBCLAURENT C MP #### [facility] [address] [place], [place] [address] MCV (RBC) [Entitic vol] 87.5 80.0-100.0 fL Normal 03-15 [facility] (63104) Comment: Performed By: #### CBCLAURENT C MP #### [facility] [address] [place], [place] [address] Monocytes/100 WBC (Bld) 8.8 % Normal 2018 [facility] (83850) Comment: Performed By: #### CBCLAURENT C MP #### [facility] [address] [place], [place] [address] Neutrophils/100 WBC (Bld) 51.5 % Normal 02-20 [facility] (77302) Comment: Performed By: #### CBCLAURENT C MP #### [place] [address] NRBCs 0.0 0 /100 WBC Normal 03-15-2019 [facility] (01765) Comment: Performed By: #### JEREMIAH C MP #### [address] [address] Platelet mean volume 9.5 9.0-12.7 fL Normal 9 [facility] (Bld) [Entitic vol] (97928) Comment: Performed By: #### JEREMIAH C MP #### [place] [address] [place], [place] [address] Platelets (Bld) [#/Vol] 261 150-400 k/uL Normal 2018 [facility] (43298) Comment: Performed By: #### JEREMIAH C MP #### [place] [address] [place], [place] [address] RBC (Bld) [#/Vol] 4.57 4.20-6.00 m/uL Normal 03-15-2019 [facility] (97871) Comment: Performed By: #### CBCLAURENT C MP #### [place] [address] [place], [place] [address] WBC (Bld) [#/Vol] 7.15 3.70-11.00 k/uL Normal 03-15-2019 [facility] (47267) Comment: Performed By: #### CBCLAURENT C MP #### [facility] [address] [place] [address] progress on 2019-01 PROGRESS HNO ID: [id number] Normal 02-11-2019 [facility] Author: Fly Schmid (Rn) [facility] ([id number]) Service: ? Author Type: Registered Nurse Type: [...] Dr. Fontana, discussed [facility] options [place] or [place] or Cardiology of choice. Pt will thi nk about options Appt 03/01/19 with Jenae Saucedo CNP Patient identified by name and date of . 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 Fontana, discussed [facility] options [place] or [place] or Cardiology of choice. Pt wi ll think about options Appt 03/01/19 with Jenae Saucedo CNP Patient identified by name and date of . 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 Author Type: Nurse Practitioner Type: Progress Notes Filed: 02/01/2019 1:01 PM Note Text: Noted. Brenden Saucedo APRN.TASH PROGRESS HNO ID: [id number] Normal 02-01-2019 [facility] Author: Fly Schmid (Rn) [facility] ([id number]) Service: ? Author Type: Registered Nurse Type: [...] WITHIN THE LAST 12 MONTHS: ? HOSPITAL: [facility] 10/31/17 Pulmonary Edema HTN DOES THIS PATIENT HAVE AN ADVANCE DIRECTIVE? ? No PRIMARY CARE COORDINATION OUTREACH PLAN: ? Labs pended for HM, HTN 11/07/18 BP 128/82 Appt 02/08/19 with Jenae Saucedo CNP ? Hubert Bill RN ? February 01, 2019 lipid panel, basic on 2019-02-01 Cholesterol [Mass/Vol] 219 <200 mg/dL High 019 [facility] (30691) Comment: Result Comment: <200 mg/dL, Desirable 200-239 mg/dL, Borderline hi gh >239 mg/dL, High Performed By: #### LIPB #### [facility] [address] [place], [place] [address] Cholesterol in HDL 42 >39 mg/dL Normal 02-01-2019 [facility] [Mass/Vol] (30425) Comment: Result Comment: 40-59 mg/dL, Acceptable >59 mg/dL, High: Negative ri sk factor for coronary heart disease <40 mg/dL, Low: Positive ris k factor for coronary heart disease Performed By: #### LIPB #### [facility] [address] [place], [place] [address] Cholesterol in LDL 159 <100 mg/dL High 02-01-2019 [facility] [Mass/Vol] (88536) Comment: Result Comment: <100 mg/dL, Optimal 100-129 mg/dL, Near optimal/ above optimal 130-159 mg/dL, Borderline hi gh 160-189 mg/dL, High >189 mg/dL, Very high Secondary prevention optimal LDL Cholesterol levels are recommended to be < 70 mg/dL Performed By: #### LIPB #### [facility] [address] [place] [address] Fasting Time 12 hrs Normal 02-01-2019 [facility] (48181) Comment: Performed By: #### LIPB #### [place] [address] [place] [address] LDL:HDL Ratio 3.79 <2.54 High 02-01-2019 [facility] (52851) Comment: Result Comment: Reference: 1. National Cholesterol Educ ation Program ATP III Guideline At-A-Glance Quick Desk Reference: National Heart, Lung, and Blood [place]. National Institutes of Health. 2001: NIH Publication No. 01-3305. 2. An International Atherosc lerosis Society position paper: global recommendations for the management of dyslipidemia: executive summary, Atherosclerosis. 2014: 232(2):410-413. Performed By: #### LIPB #### [facility] [address] [place], [place] [address] Non HDL Cholesterol 177 <130 mg/dL High 02-01-2019 [facility] (15124) Comment: Result Comment: <130 mg/dL, Optimal 130-159 mg/dL, Near optimal/ above optimal 160-189 mg/dL, Borderline hi gh 190-219 mg/dL, High >219 mg/dL, Very high Secondary prevention optimal non HDL Cholesterol levels are recommended to be < 100 mg/dL Performed By: #### LIPB #### [facility] [address] [place] [id number] TC:HDL Ratio 5.21 <5.10 High 02-01-2019 [facility] (30491) Comment: Performed By: #### LIPB #### [facility] [address] [place] [address] Triglyceride [Mass/Vol] 89 <150 mg/dL Normal 2018 [facility] (41666) Comment: Result Comment: <150 mg/dL, Normal 150-199 mg/dL, Borderline hi gh 200-499 mg/dL, High >499 mg/dL, Very high Performed By: #### LIPB #### [facility] [address] [place] [address] VLDL Cholesterol 18 <30 mg/dL Normal 02-01-2019 [facility] (29176) Comment: Performed By: #### LIPB #### [facility] [address] [place] [id number] cnptoutreach on 201 01-28-13 CNPTOUTREACH Patient Outreach (FAMPWS) Normal 0 02-01-2019 [facility] KEVIN TONG ([id number]) 1970 [facility] Date Time Provider Department (58199) 02/01/19 FLY SCHMID (RN) FAMPWS During your visit today, we recorded the following informati on about you: Hubert Bill RN 02/01/2019 1:01 PM Signed PRIMARY CARE [...] WITHIN THE LAST 12 MONTHS: ? HOSPITAL: 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- Other [5739] Cmt: ACO Prescriptions as of 02/01/2019 Sig: [...] CNP on 02/01/19 tashtoutrmelody on 201 01-28-03 [facility] Normal 0 01-22-2019 [facility] KEVIN TONG ([id number]) 1970 [facility] Date Time Provider Department (91052) 01/22/19 [facility] During your visit today, we recorded the following informati on about you: Allergies As of Date: 01/22/2019 Noted Allergy Reaction CODEINE 03/11/2015 9 - Itching LIDOCAINE 05/12/2005 11 - Vomiting Date Reviewed: 11/07/2018 Reviewed by: Brenden Saucedo - Fully Assessed Visit Diagnoses:Obesity, Cla ss III, BMI 40-49.9 (morbid obesity) ([facility]) [E66.01] Hypertension, essential [I10] Order(s):HGB A1C [KQGVC5D] Order #: [id number] FUTURE LIPID PANEL BASIC [SQLIPB] Order #: [id number] FUTURE Prescriptions as of 01/22/2019 Sig: ALBUTEROL [...] BE BASED ON THE PRIMARY CLINICAL RECORDS. [facility] provides no warranty or guarantee of the accuracy or completeness of information in this document. UNRECOGNIZED CONTENT PROVIDED BELOW FOR UNRECOGNIZED SECTION No Status Records Found UNRECOGNIZED CONTENT PROVIDED BELOW FOR UNRECOGNIZED SECTION INFORMATION SOURCE DATE CREATED AUTHOR AUTHOR'S ORGANIZATIO N 12/13/2019 [facility] tresa
== END ==
LOC: LAB.FUTURE 15:53 → LAB 15:55
PROVIDERS: PCP Family Medicine; Referring Provider Internal Medicine Nephrology; Visit Provider Internal Medicine Nephrology
DX: E87.1 Hypo-osmolality and hyponatremia (principal)
CPT/HCPCS: 36415; 80048; 83935; 84300

== ENCOUNTER → 2019-10-25 14:16 | Outpatient (CLI) | payer MEDICARE, SELFPAY ==
[2017-10-30 11:41] VITALS: BMI 37.2
[2019-10-25 16:23] LABS: Anion Gap 9 (5-15); BUN 13 mg/dL (7-18); BUN/Creat Ratio 10.5 RATIO (10-20); Calcium,Total 8.7 mg/dL (8.5-10.1); Chloride 92 mmol/L (98-107); Creatinine, Serum 1.24 mg/dL (0.70-1.30); EST Glomerular Filtration Rate 66 mL/min (>60); Est Glom Filt Rate - Afr Amer 80 mL/min (>60); Glucose 85 mg/dL (74-106); Potassium 4.2 mmol/L (3.5-5.1); Sodium Level 126 mmol/L (136-145)
--- OUTSIDE RECORDS SUMMARY | 2020-03-08 08:38 | XMS RPT_ITS | CCD ---
:1970 External Reference #:[id number] Author Organization [employer] Care Team Providers Name Role Phone Unavailable Unavailable Unavailable Results Result Name Value Range Unit Interpretation Flag Date Location progress on 2019-11 PROGRESS HNO ID: [id number] Normal 11-26-2019 [facility] Author: Brenden (Transmission Operator) Ronaldo Tolentino ([id number]) Service: ? Author Type: Nurse Practitioner Type: [...] mg tablet take 1/2-3 tablets by mo [facility] at bedtime if needed for insomnia No [...] HFA 90 MCG/ACTUATION AEROSOL INHALER Brenden Saucedo APRN.HEMSTITCHING MACHINE OPERATOR RTO in 3 months, sooner if needed. This note was partly generated using [employer] voice recognitio n dictation and may contain some misspelled or inaccurate words missed o n review. cnov on 2019-11-26 CNOV Office Visit (FAMPWS) Normal 11-26-[address] [facility] KEVIN TONG ([id number]) 1970 [facility] Date Time Provider Department ([id number]) 11/26/19 2:20 PM BRENDEN SAUCEDO (TASH) PRINCESS [...] stage 3, GFR 30-59 ml/min ([facility]) - ICD9: 585.3, ICD10: N18.3 - Continue following with - LISINOPRIL 20 MG TABLET - COMP METABOLIC PANEL 4. Mild intermittent asthma without comp lication - ICD9: 493.90, ICD10: J45.20 Mild persistent Asthma stable - Continue current meds - Avoidance of triggers recommended - BUDESONIDE-FORMOTEROL HFA 160 MCG-4.5 MCG/ACTUATION AEROSO L INHALER - ALBUTEROL SULFATE HFA 90 MCG/ACTUATION AEROSOL INHALER Brenden Saucedo APRN.HEMSTITCHING MACHINE OPERATOR RTO in 3 months, sooner if needed. This note was partly generat ed using [employer] voice recognition dictation and may contain some [...] stage 3, GFR 30-59 ml/min ([facility]) [N18.3] Mild intermittent asthma without complication [J45.20] Order(s):carvedilol (COREG) 25 mg tabletTake 1 tablet by twice daily with meals.Disp: 60 tabletRfl: 3 lisinopril (ZESTRIL, PRINIVIL) 20 mg tabletTake 1 tablet by mouth twice daily.Disp: 60 tabletRfl: 3 amLODIPine (NORVASC) 10 mg tabletTake 1 tablet by mouth once daily.Disp: 30 tabletRfl: 3 COMP METABOLIC PANEL [SQCMP] Order #: [id number] FUTURE LIPID PANEL, NONFASTING [SQLIPNF] Order #: [id number] FUTURE budesonide-formoterol (SYMBICORT) 160-4.5 mcg/actuation inha lerTWICE [...] on 2019-09-10 CNPN Telephone (FAMPWS) Normal 09-10-[address] [facility] KEVIN TONG ([id number]) 1970 [facility] Date Time Provider Department ([id number]) 09/10/19 [facility] your visit today, we recorded the following informati on about you: Karl Ugalde RN 09/10/2019 10:27 AM Signed Brigida from Dr. Vasquez's office called, verified pt by name a nd date of . Brigida requested recent labs for pt's upcoming apt. CMP from 06-18-2019 faxed to [phone] Karl Ugalde RN Allergies As of Date: [...] on 2019-08 OBSOLETE Refill (FAMPWS) Normal 09-03-2019 [facility] KEVIN TONG ([id number]) 1970 [facility] Date Time Provider Department ([id number]) 09/03/19 RAGINI FERNANDEZ FAMPWS During your visit [...] 122/76 Please advise. Thank you. Ophelia Saucedo APRN.HEMSTITCHING MACHINE OPERATOR 09/03/2019 2:38 PM Signed The following approved [...] mouth once daily. SWEETIE: No Brenden Saucedo APRN.HEMSTITCHING MACHINE OPERATOR Allergies As of Date: 09/03/2019 Noted Allergy Reaction CODEINE 03/11/2015 9 - Itching LIDOCAINE 05/12/2005 11 - Vomiting Date Reviewed: 06/18/2019 Reviewed by: Karime Cummings) MOE Hartley - Fully Assessed Reason for Visit: Refill Request [94] Visit Diagnoses:Hypertension, essential [I10] Chronic systolic CHF (congestive heart failure) ([facility]) [I50.2 2] CKD (chronic kidney disease) stage 3, GFR 30-59 ml/min ([facility]) [N18.3] Mild intermittent asthma without complication [J45.20] [...] 09/03/19 progress on 2019-08 PROGRESS HNO ID: [id number] Normal 08-21-2019 [facility] Author: Fly MelgarRn) Tolentino ([id number]) Service: ? Author Type: Registered Nurse Type: Progress Notes Filed: 08/21/2019 7:25 PM Note Text: PRIMARY CARE COORDINATION QUICK NOTE Provider Action/FYI Call to Pt left a detailed message notified medications refi lled as noted below. Patient identified by name and date . Hubetr Bill RN August 21, 2019 7:17 PM PROGRESS HNO ID: [id number] Normal 08-21-2019 [facility] Author: Brenden Flores) Ronaldo Tolentino ([id number]) Service: ? Author Type: Nurse Practitioner Type: [...] APRN.CNP progress on 2019-07 PROGRESS HNO ID: [id number] Normal 08-20-2019 [facility] Author: Fly Gar) Tolentino ([id number]) Service: ? Author Type: Registered Nurse Type: Progress Notes Filed: 08/21/2019 7:25 PM Note Text: PRIMARY CARE COORDINATION QUICK NOTE Provider Action/FYI Denies CP, Sob, edema, fever or cough, or wheezing, having normal allergy symptoms, has cough with sinus drainage when lying down, occ asional sneezing, is taking OTC antihistamines with relief Pt request for refill pended for PCP/ HEMSTITCHING MACHINE OPERATOR- No need for call back, he will check with Pharmacy Discussed discharge from Care Coordination services provided contact info for PCP practice for future needs or concerns. Pt verbalized understanding and appreciation. Instructed to wash hands frequently, clean surface, social d istancing. Pt verbalized understanding. Patient identified by name and date . Hubert Bill RN August 20, 2019 5:00 PM PROGRESS HNO ID: [id number] Normal 08-20-2019 [facility] Author: Fly Schmid (Rn) [place] ([id number]) Service: ? 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 KEVIN TONG ([id number]) 1970 [facility] Date Time Provider Department ([id number]) 07/09/19 RAGINI FERNANDEZ During your visit today, [...] ply of medication sent to pharmacy in [place] He is on vacation and forgot to [...] systolic CHF (congestive heart failure) ([facility]) [I50.2 2] CKD (chronic kidney disease) stage 3, GFR 30-59 ml/min ([facility]) [N18.3] Order(s):amLODIPine (NORVASC) 10 mg tabletTake 1 [...] 07/09/19 progress on 2019-05 PROGRESS HNO ID: [id number] Normal 06-18-2019 [facility] Author: Brenden Flores) Ronaldo Tolentino ([id number]) Service: ? Author Type: Nurse Practitioner Type: [...] Has be en given contact information for [email or web address]. Has been trying to improve [...] 100 mg tablet take 1/2-3 tablets by [facility] at bedtime if needed for insomnia [...] labs, RTO in 3 months. Brenden Saucedo APRN.HEMSTITCHING MACHINE OPERATOR PROGRESS HNO ID: [id number] Normal 06-18-2019 [facility] Author: Fly Schmid (Rn) [place] ([id number]) Service: ? Author Type: Registered Nurse Type: Progress Notes Filed: 06/18/2019 2:03 PM Note Text: PRIMARY CARE COORDINATION PRE-VISIT ASSESSMENT Provider Action/FYI: Spk with Pt who denies CP, Sob, denies dizziness, occassiona l ORTEGA, takes one ASA daily which helps. Pt noted has right foot pain, denies swelling or other unusu al symptoms Pt reports he is traveling to [place] AND he will verify if he needs any medications prior to 06/18/2019 Appt with Jenae Sauecdo CNP Pt is managing his stress better [...] Cholesterol [Mass/Vol] 187 <200 mg/dL Normal 020 [facility] (93166) Comment: Result Comment: <200 mg/dL, Desirable 200-239 mg/dL, Borderline hi gh >239 mg/dL, High Performed By: #### CMP, LIPN F ####[facility] [place], [place] [phone]- [phone] Cholesterol in 3.40 <2.54 mg/dL High 06-18-2019 [facility] LDL/Cholesterol in HDL [Mass [place] (99660) ratio] Comment: Result Comment: Reference: 1. National Cholesterol Educ ation Program ATP III Guideline At-A-Glance Quick Desk Reference: National Heart, Lung, and Blood [place]. National Institutes of Health. 2001: NIH Publication No. 01-3305. 2. An International Atherosc lerosis Society position paper: global recommendations for the management of dyslipidemia: executive summary, Atherosclerosis. 2014: 232(2):410-413. Performed By: #### CMP, LIPN F ####[facility] [place], [place] [phone]- [phone] Cholesterol.total/Cholesterol in HDL 5.34 <5.10 mg/dL Hig h 06-18-2019 [facility] [Mass ratio] Manuel david (83948) Comment: Performed By: #### LEOLA LIPN F ####[place] [address] [place], [place] [phone]- [phone] HDL Cholesterol, NF 35 >39 mg/dL Low 06-18-2019 [facility] (14043) Comment: Result Comment: 40-59 mg/dL, Acceptable >59 mg/dL, High: Negative ri sk factor for coronary heart disease <40 mg/dL, Low: Positive ris k factor for coronary heart disease Performed By: #### LEOLA, LIPN F ####[address] [phone] LDL Cholesterol, NF 119 <100 mg/dL High 06-18-2019 [facility] (24070) Comment: Result Comment: <100 mg/dL, Optimal 100-129 mg/dL, Near optimal/ above optimal 130-159 mg/dL, Borderline hi gh 160-189 mg/dL, High >189 mg/dL, Very high Secondary prevention optimal LDL Cholesterol levels are recommended to be < 70 mg/dL Performed By: #### LEOLA, LIPN F ####[address] [phone] Non HDL Chol, NF 152 <130 mg/dL High 06-18-2019 [facility] (41765) Comment: Result Comment: <130 mg/dL, Optimal 130-159 mg/dL, Near optimal/ above optimal 160-189 mg/dL, Borderline hi gh 190-219 mg/dL, High >219 mg/dL, Very high Secondary prevention optimal non HDL Cholesterol levels are recommended to be < 100 mg/dL Performed By: #### CMP, LIPN F ####[place] [address] [place], [place] [phone] Triglycerides, NF 163 <150 mg/dL High 06-18-2019 [facility] (91492) Comment: Result Comment: <150 mg/dL, Normal 150-199 mg/dL, Borderline hi gh 200-499 mg/dL, High >499 mg/dL, Very high Performed By: #### CMP, LIPN F ####[place] [address], [place] [phone] VLDL Cholesterol, NF 33 <30 mg/dL High 0 [facility] (45400) Comment: Performed By: #### CMP, LIPN F ####[place] [address], [place] [phone] comp metabolic panel on 2019-06-18 Albumin [Mass/Vol] 4.2 3.9-4.9 g/dL Normal 06-18-2019 [facility] (14374) Comment: Performed By: #### CMP, LIPN F ####[address], [place] [phone]- [phone] ALP [Catalytic activity/Vol] 70 38-113 U/L Normal 0 06-18-2019 [facility] (53087) Comment: Performed By: #### CMP, LIPN F ####[place] [address], [place] [phone]- [phone] ALT [Catalytic activity/Vol] 23 10-54 U/L Normal 0 06-18-2019 [facility] (32009) Comment: Performed By: #### CMP, LIPN F ####[place] [address], [place] [phone]- [phone] Anion gap [Moles/Vol] 14 9-18 mmol/L Normal 06-18-19 20 [facility] (42042) Comment: Performed By: #### CMP, LIPN F ####[place] [address], [place] [phone]- [phone] AST [Catalytic activity/Vol] 30 14-40 U/L Normal 0 06-18-2019 [facility] (37070) Comment: Performed By: #### CMP, LIPN F ####[place] [address], [place] [phone] Bilirubin [Mass/Vol] 0.3 0.2-1.3 mg/dL Normal 0 [facility] (96815) Comment: Performed By: #### LEOLA LIPN F ####[facility] [place], [place] [phone] Calcium [Mass/Vol] 8.9 8.5-10.2 mg/dL Normal 06-18-2019 [facility] (05624) Comment: Performed By: #### LEOLA LIPN F ####[place] [address] [place], [place] [phone] Chloride [Moles/Vol] 89 97-105 mmol/L Low 0 [facility] (47954) Comment: Performed By: #### LEOLA LIPN F ####[place] [address], [place] [phone]- [phone] CO2 [Moles/Vol] 21 22-30 mmol/L Low 06-18-2019 [facility] (07936) Comment: Performed By: #### LEOLA LIPN F ####[facility] [place], [place] [phone] Creatinine [Mass/Vol] 1.31 0.73-1.22 mg/dL High 06-18-19 20 [facility] (00709) Comment: Performed By: #### CMP LIPN F ####[place] [address], [place] [phone]- [phone] eGFR- Amer. >60 Normal 06-18-2019 [facility] (29755) Comment: Performed By: #### LEOLA LIPN F ####[facility] [place], [place] [phone] GFR/1.73 sq M predicted among 58 . Normal 06-18-2019 [facility] non-blacks MDRD (S/P/Bld) [Vol (52870) rate/Area] Comment: Result Comment: eGFR (Estima aileen [...] GFR. Performed By: #### DEN BHAGAT F ####[facility] [address], [place] [phone]- [phone] Glucose [Mass/Vol] 90 74-99 mg/dL Normal 06-18-2019 [facility] (15645) Comment: Result Comment: The [place] Diabetes Association (ADA) provides guidance for cutoff [...] for diagnosis of diabetes. Reference: Standards of [facility] Care in Diabetes 2016, [place] Diabetes Association. Diabetes Care. 2016.39(Suppl 1). Performed By: #### BRAXTON BHAGATN F ####[facility] [address], [place] [phone]- [phone] Potassium [Moles/Vol] 4.7 3.7-5.1 mmol/L Normal 06-18-19 [facility] (17356) Comment: Performed By: #### LEOLA LIPN F ####[facility] [address], [place] [phone] Protein [Mass/Vol] 7.1 6.3-8.0 g/dL Normal 06-18-2019 [facility] (30782) Comment: Performed By: #### LEOLA LIPN F ####[facility] [address] [place], [place] [phone] Sodium [Moles/Vol] 124 136-144 mmol/L Low 06-18-2019 [facility] (22509) Comment: Performed By: #### LEOLA LIPN F ####[facility] [address] [place], [place] [phone] Urea nitrogen [Mass/Vol] 15 9-24 mg/dL Normal 06-18 [facility] (35673) Comment: Performed By: #### LEOLA LIPN F ####[facility] [address] [place], [place] [phone]- [phone] cnptoutreach on 202 CNPTOUTREACH Patient Outreach (FAMPWS) Normal 0 06-18-[address] 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 KEVIN TONG ([id number]) 1970 [facility] Date Time Provider Department (87198) 06/18/19 1:20 PM BRENDEN SAUCEDO ([facility]) FAMPWS During your visit today, we [...] [facility] gain or loss. [facility] Foot pain is improving. Not as bad as previously. Performing plantar fasciitis exercises. Asthma: Doing well overall. Using inhalers as prescribed. No wheezing, SOB, fevers. Taking allergy medication. Cardiomyopathy: Needing to establish with cardiology. Has been given contact information for [email or web address]. Has been trying to impr [...] stage 3, GFR 30-59 ml/min ([facility]) - ICD9: 585.3, ICD10: N18.3 - Continue following with nephrology. - COMP METABOLIC PANEL 5. Plantar fasciitis - ICD9: 728.71, ICD10: M72.2 - Improved, continue with otc treatments, exercises 6. Bipolar affective disorder, remission status unspecified ([facility]) - ICD9: 296.80, ICD10: F31.9 - Stable [...] or regular hard cheese Whole milk, cream Ilmm-ehp-ylzv, most dairy creamers Real non-dairy whipped cream [...] cold Pasta/noodels (no egg yolks) Rice Bagels, Slovenian muffins Potatoes Baked goods (cake, muffins, pancakes, [...] Snacks (In very limited amount) Sherbet, sorbet, Romanian ice, frozen yogurt, popsicles , jennifer food [...] stage 3, GFR 30-59 ml/min ([facility]) [N18.3] Plantar fasciitis [M72.2] Bipolar affective disorder, remission status unspecified ([facility]) [F31.9] Moderate persistent asthma with (acute) exacerbation [J45.41] Order(s):amLODIPine (NORVASC) 10 mg tabletTake 1 tablet by m outh once daily.Disp: 90 tabletRfl: 2 LIPID PANEL, NONFASTING [SQLIPNF] Order #: [id number] FUTURE COMP METABOLIC PANEL [SQCMP] Order #: [id number] FUTURE Prescriptions as of 06/18/2019 Sig: AMLODIPINE [...] or regular hard cheese Whole milk, cream Xubq-otf-iaug, most dairy creamers Real non-dairy whipped cream [...] cold Pasta/noodels (no egg yolks) Rice Bagels, Slovenian muffins Potatoes Baked goods (cake, muffins, pancakes, [...] Snacks (In very limited amount) Sherbet, sorbet, Romanian ice, frozen yogurt, popsicles, tonny l food [...] * *Final Report* * * Normal 2018 [facility] AP/LAT/OBL RT DATE OF EXAM: Apr 05 2019 1:46PM [place] WOX 5337 - XR FOOT 3V AP/LAT/OBL RT / (72558) PROCEDURE REASON: Pain of right heel * * * * Physician Interpretation * * * * EXAMINATION: XR FOOT 3V AP/LAT/OBL RT CLINICAL HISTORY: Heel pain Comparison: None RESULT: No acute fracture or dislocation. Left fifth metatarsal scre w. No aggressive lesion. IMPRESSION: No acute osseous abnormality. Spray Painting Machine Operator: PSCB Transcribe Date/Time: Apr 06 2019 4:38A Dictated by : SANDRO HERRING MD This examination was interpreted and the report reviewed and electronically signed by: SANDRO HERRING MD on Apr 06 2019 4:40AM EST [id number] progress on 2019-03 PROGRESS HNO ID: [id number] Normal 04-05-2019 [facility] Author: Loli Mullins (Rt) Hardy Mitchell ([id number]) Service: ? Author Type: Honing Machine Try Out Setter Type: Progress Notes Filed: 04/05/2019 1:46 PM [...] 05, 2019 1:36 PM PROGRESS HNO ID: [id number] Normal 04-05-2019 [facility] Author: Brenden Tolentino ([id number]) Service: ? Author Type: Nurse Practitioner Type: [...] Has history of CKD, canno t take bed bug exterminator NSAIDS. Has history of acute ankle [...] CNOV Office Visit (FAMPWS) Normal 04-05-[address] [facility] KENJIKEVIN J ([id number]) 1970 [facility] Date Time Provider Department (90367) 04/05/19 12:40 PM BRENDEN SAUCEDO ([facility]) FAMPWS During your visit today, we [...] ankle fracture many years ago of the [facility] ankle. Past medical history, appointments, medications, [...] Order(s):XR FOOT GENERAL 3V AP/LAT/OBL R T [1260013] Order #: [id number] FUTURE Prescriptions as of 04/05/2019 Sig: DIVALPROEX ER 500 MG TABLET,E* Take 500 mg by mouth once victorino * ALBUTEROL SULFATE HFA 90 MCG/* inhale 2 puffs as directed ev * QUETIAPINE 50 MG TABLET Take 50 mg by mouth twice vcitorino* OXCARBAZEPINE 300 MG TABLET Take 300 mg [...] podiatry if anything is concerning. Brenden Saucedo APRN.HEMSTITCHING MACHINE OPERATOR Disposition: Return if symptoms worsen or fail to improve. Follow-up and Disposition History Recorded Encounter Status:Closed by BRENDEN SAUCEDO CNP on 04/05/19 progress on 2019-03 PROGRESS HNO ID: [id number] Normal 04-01-2019 [facility] Author: Fly Schmid (Rn) [place] ([id number]) Service: ? Author Type: Registered Nurse Type: Progress Notes Filed: 04/01/2019 4:34 PM Note Text: PRIMARY CARE COORDINATION INTAKE Provider Action/FYI: Spk with Pt he denies CP, denies Sob, has wheezing related t o allergy, uses Albuterol inhaler with relief Pt reports has slight right foot swelling and pain, requesti ng an appt with Pcp / HEMSTITCHING MACHINE OPERATOR, when seen recently it was not as [...] CNPTOUTREACH Patient Outreach (FAMPWS) Normal 1 06-01-2018 [facility] KEVIN TONG ([id number]) 1970 [facility] Date Time Provider Department (29642) 04/01/19 FLY SCHMID (RN) FAMPWS During your visit today, we recorded the following informati on about you: Hubert Bill RN 04/01/2019 4:34 PM Signed PRIMARY CARE COORDINATION INTAKE Provider Action/FYI: Spk with Pt he denies CP, denies Sob, has wheezing related to allergy, uses Albuterol inhaler with relief Pt reports has slight right foot swelling and pain, requesting an appt with Pcp / HEMSTITCHING MACHINE OPERATOR, when seen recently it was not as [...] Hartley - Fully Assessed Reason for Visit: Rehabilitation Construction Specialist Chronic Care [3617] Cmt: Right Foot pain Reason For Visit [...] 04/01/19 progress on 2019-02 PROGRESS HNO ID: [id number] Normal 03-15-2019 [facility] Author: Brenden (Transmission Operator) Ronaldo Tolentino ([id number]) Service: ? Author Type: Nurse Practitioner Type: Progress Notes Filed: 03/15/2019 1:39 PM Note Text: Chief Complaint Patient presents with: F/U 3 Month HPI Kevin Tong is a 49 year old male who presents here t vince for Chronic Medical Conditions.. Patient presents office today for routine follow-up. History of hypertension and CHF. Previously referred to [facility] edgardo dyer but has not scheduled with them. States that 2 days after I last saw him, his mother from cancer. Since this occurrence, jailyn spencer has been grieving, has been going to grief counseling at the [facility]. Has bipolar disease and is followed [...] ler TWICE A DAY perflutren lipid microspheres (DEFINStemgent) 1.1 mg/mL injection (to be provided with [...] file Gets together: Not on file Attends zoroastrianism service: Not on file Active member of [...] ic. Continue with plan to establish with [facility]. - COMP METABOLIC PANEL - [...] - Continue following with [facility]. 6. Grieving - ICD9: 309.0, ICD10: F43.21 - Continue with grieve counseling. Get labs today, RTO in 3 months. Brenden Saucedo APRN.HEMSTITCHING MACHINE OPERATOR hemoglobin a1c on 2 HbA1c (Bld) [Mass fraction] 5.8 4.3-5.6 % High [facility] (95945) Comment: Result Comment: [place] [employer] Association guidelines indicate that patients with HgbA1c in the range 5.7-6.4% are at increased risk for development of diabetes, and intervention by lifestyle modification may be beneficial. HgbA1c greater o r equal to 6.5% is considered diagnostic of diabetes. Performed By: #### HBA1C ### #[facility] [address] [place], [place] [phone]- [phone] HbA1c (Bld) [Mass fraction] 120 mg/dL Normal [facility] (14140) Comment: Result Comment: eAG: (Estima aileen average glucose) is a calculated value from HgbA1c and is tax representative of the average blood glucose level in the last 2-3 month period. Performed By: #### HBA1C ### #[place] [phone]- [phone] comp metabolic panel on 2019-03-15 Albumin [Mass/Vol] 4.1 3.9-4.9 g/dL Normal 03-15-2019 [facility] (23676) Comment: Performed By: #### Smiley DANIELS MP ####[address] [phone]- [phone] ALP [Catalytic activity/Vol] 86 38-113 U/L Normal 1 [facility] (06537) Comment: Performed By: #### Smiley DANIELS MP ####[address] [place], [place] [phone]- [phone] ALT [Catalytic activity/Vol] 15 10-54 U/L Normal 1 [facility] (87319) Comment: Performed By: #### Smiley DANIELS MP ####[address] [phone] Anion gap [Moles/Vol] 13 9-18 mmol/L Normal 03-15- 19 [facility] (16999) Comment: Performed By: #### Smiley DANIELS MP ####[address] [place], [place] [phone] AST [Catalytic activity/Vol] 23 14-40 U/L Normal 1 [facility] (97800) Comment: Performed By: #### Smiley DANIELS MP ####[place] [address] [address], [place] [phone] Bilirubin [Mass/Vol] 0.3 0.2-1.3 mg/dL Normal 9 [facility] (38061) Comment: Performed By: #### Smiley DANIELS MP ####[place] [address] [address], [place] [phone] Calcium [Mass/Vol] 9.3 8.5-10.2 mg/dL Normal 03-15-2019 [facility] (69721) Comment: Performed By: #### Smiley DANIELS MP ####[place] [address] [address], [place] [phone] Chloride [Moles/Vol] 102 97-105 mmol/L Normal 9 [facility] (60347) Comment: Performed By: #### Smiley DANIELS MP ####[place] [address], [place] [phone] CO2 [Moles/Vol] 22 22-30 mmol/L Normal 03-15-2019 [facility] (07300) Comment: Performed By: #### Smiley DANIELS MP ####[place] [address] [place], [place] [phone]- [phone] Creatinine [Mass/Vol] 1.43 0.73-1.22 mg/dL High 03-15-20 19 [facility] (23487) Comment: Performed By: #### Smiley DANIELS MP ####[place] [address] [address], [place] [phone] eGFR- Amer. >60 Normal 03-15-2019 [facility] (55611) Comment: Performed By: #### Smiley DANIELS MP ####[place] [address] [place], [place] [phone] GFR/1.73 sq M predicted among 53 . Normal 03-15-2019 [facility] non-blacks MDRD (S/P/Bld) [Vol (84217) rate/Area] Comment: Result Comment: eGFR (Estima aileen [...] GFR. Performed By: #### Smiley DANIELS MP ####[facility], [place] [phone]- [phone] Glucose [Mass/Vol] 96 74-99 mg/dL Normal 03-15-2019 [facility] (28833) Comment: Result Comment: The [place] Diabetes Association (ADA) provides guidance for cutoff [...] for diagnosis of diabetes. Reference: Standards of [facility] Care in Diabetes 2016, [place] [employer] Association. Diabetes Care. 2016.39(Suppl 1). Performed By: #### Smiley DANIELS MP ####[facility] [address] [place], [place] [phone] Potassium [Moles/Vol] 4.4 3.7-5.1 mmol/L Normal 03-15-20 [facility] (38834) Comment: Performed By: #### Smiley DANIELS MP ####[facility] [address] [place], [place] [phone] Protein [Mass/Vol] 7.0 6.3-8.0 g/dL Normal 03-15-2019 [facility] (44815) Comment: Performed By: #### Smiley DANIELS MP ####[facility] [place], [place] [phone] Sodium [Moles/Vol] 137 136-144 mmol/L Normal 03-15-2019 [facility] (11810) Comment: Performed By: #### Smiley DANIELS MP ####[facility] [place], [place] [phone] Urea nitrogen [Mass/Vol] 15 9-24 mg/dL Normal 03-15 [facility] (22097) Comment: Performed By: #### Smiley DANIELS MP ####[facility] [place], [place] [phone] cnov on 2019-03-15 CNOV Office Visit (FAMPWS) Normal 03-15-[address] [place] [address] [facility] KEVIN TONG ([id number]) 1970 [facility] Date Time Provider Department ([id number]) 03/15/19 1:20 PM BRENDEN SAUCEDO ([facility]) FAMPWS During your visit today, we [...] of hypertension and CHF. Previously referred to [facility] but has not scheduled with [...] 100 mg tablet take 1/2-3 [facility] at bed[facility] if needed for insomnia [...] file Gets together: Not on file Attends zoroastrianism service: Not on file Active member of [...] Asymptomatic. Continue with plan to establish with [facility]. - COMP METABOLIC PANEL - CBC + DIFF 3. Mild intermittent asthma without comp lication - ICD9: 493.90, ICD10: J45.20 Mild persistent Asthma stable - Continue current meds - Avoidance of triggers recommended 4. CKD (chronic kidney disease) stage 3, GFR 30-59 ml/min ([facility]) - ICD9: 585.3, ICD10: N18.3 - Stable, continue to monitor - COMP METABOLIC PANEL 5. Bipolar affective disorder, remission status unspecified ([facility]) - ICD9: 296.80, ICD10: F31.9 - Continue following with [facility]. 6. Grieving - ICD9: 309.0, ICD10: F43.21 - Continue with grieve counseling. Get labs today, RTO in 3 months. Brenden Saucedo APRN.HEMSTITCHING MACHINE OPERATOR Referring Provider: SELF [200] Allergies As of Date: 03/15/2019 Noted Allergy Reaction CODEINE 03/11/2015 9 - Itching LIDOCAINE 05/12/2005 11 - Vomiting Date Reviewed: 03/15/2019 Reviewed by: Karime (Moe) MOE Hartley - Fully Assessed Reason for Visit: F/U 3 Month [443] Primary Visit Diagnosis:Hypertension, essential [I10] Other Visit Diagnoses:Chronic systolic CHF (congestive hea rt failure) ([facility]) [I50.22] Mild intermittent asthma without complication [J45.20] CKD (chronic kidney disease) stage 3, GFR 30-59 ml/min ([facility]) [N18.3] Bipolar affective disorder, remission status unspecified ([facility]) [F31.9] Grieving [F43.21] Order(s):COMP METABOLIC PANEL [SQCMP] Order #: [id number] ÓSCAR VALERO CBC + DIFF [SQCBCDIF] Order #: [id number] FUTURE Prescriptions as of 03/15/2019 Sig: ALBUTEROL [...] Abs Baso 0.04 <0.11 k/uL Normal 03-15-2019 [facility] (68246) Comment: Performed By: #### CBCSmiley MANCILLA MP #### [facility] [address] [place], [place] [phone] Abs Burt 0.63 <0.87 k/uL Normal 03-15-2019 [facility] (22677) Comment: Performed By: #### CBCSmiley MANCILLA MP #### [facility] [address] [place], [place] [address] Abs Neut 3.67 1.45-7.50 k/uL Normal 03-15-2019 [facility] (67599) Comment: Performed By: #### CBCSmiley MANCILLA MP #### [facility] [address] [place], [place] [address] Absolute nRBC <0.01 <0.01 Normal 03-15-2019 [facility] (32529) Comment: Performed By: #### CBCDIF, C MP #### [facility] [address] [place] [address] Basophils/100 WBC (Bld) 0.6 % Normal 2018 [facility] (84079) Comment: Performed By: #### CBCDIF, C MP #### [facility] [address] [place] [address] DTYPE Auto Diff Normal 03-15-2019 [facility] (95720) Comment: Performed By: #### CBCDIF, C MP #### [facility] [address] [place] [phone] Eosinophils (Bld) [#/Vol] 0.54 <0.46 k/uL High 02-20 [facility] (02340) Comment: Performed By: #### CBCDIF, C MP #### [facility] [address] [place] [address] Eosinophils/100 WBC (Bld) 7.6 % Normal 02-20 [facility] (98945) Comment: Performed By: #### CBCDIF, C MP #### [facility] [address] [place] [address] Erythrocyte distribution 14.3 11.5-15.0 % Normal 03-15 [facility] width (RBC) [Ratio] [facility] (37412) Comment: Performed By: #### CBCDIF, C MP #### [facility] [address] [place] [address] Hematocrit (Bld) [Volume 40.0 39.0-51.0 % Normal 03-15 [facility] fraction] [facility] (21775) Comment: Performed By: #### CBCDIF, C MP #### [facility] [address] [place] [address] Hemoglobin (Bld) 13.0 13.0-17.0 g/dL Normal 03-15-2019 [facility] [Mass/Vol] [facility] (72384) Comment: Performed By: #### JEREMIAH C MP #### [facility] [address] [place], [place] [address] Lymphocytes (Bld) [#/Vol] 2.25 1.00-4.00 k/uL Normal 02-20 [facility] (93528) Comment: Performed By: #### JEREMIAH C MP #### [facility] [address] [place], [place] [address] Lymphocytes/100 WBC (Bld) 31.5 % Normal 02-20 [facility] (27796) Comment: Performed By: #### JEREMIAH C MP #### [address] [address] MCH (RBC) [Entitic mass] 28.4 26.0-34.0 pG Normal 03-15 [facility] (75890) Comment: Performed By: #### JEREMIAH C MP #### [facility] [address] [place], [place] [address] MCHC (RBC) [Mass/Vol] 32.5 30.5-36.0 g/dL Normal 03-15-20 19 [facility] (08934) Comment: Performed By: #### CBCLAURENT C MP #### [facility] [address] [place], [place] [address] MCV (RBC) [Entitic vol] 87.5 80.0-100.0 fL Normal 03-15 [facility] (92215) Comment: Performed By: #### CBCLAURENT C MP #### [facility] [address] [place], [place] [address] Monocytes/100 WBC (Bld) 8.8 % Normal 2018 [facility] (55254) Comment: Performed By: #### CBCLAURENT C MP #### [facility] [address] [place], [place] [address] Neutrophils/100 WBC (Bld) 51.5 % Normal 02-20 [facility] (31464) Comment: Performed By: #### CBCLAURENT C MP #### [place] [address] NRBCs 0.0 0 /100 WBC Normal 03-15-2019 [facility] (36716) Comment: Performed By: #### JEREMIAH C MP #### [address] [address] Platelet mean volume 9.5 9.0-12.7 fL Normal 9 [facility] (Bld) [Entitic vol] (79843) Comment: Performed By: #### JEREMIAH C MP #### [place] [address] [place], [place] [address] Platelets (Bld) [#/Vol] 261 150-400 k/uL Normal 2018 [facility] (72677) Comment: Performed By: #### JEREMIAH C MP #### [place] [address] [place], [place] [address] RBC (Bld) [#/Vol] 4.57 4.20-6.00 m/uL Normal 03-15-2019 C [facility] (18967) Comment: Performed By: #### CBCLAURENT C MP #### [place] [address] [place], [place] [address] WBC (Bld) [#/Vol] 7.15 3.70-11.00 k/uL Normal 03-15-2019 [facility] (64782) Comment: Performed By: #### CBCLAURENT C MP #### [facility] [address] [place] [phone] progress on 2019-01 PROGRESS HNO ID: [id number] Normal 02-11-2019 [facility] Author: Fly Schmid (Rn) [facility] (28130) Service: ? Author Type: Registered Nurse Type: [...] Dr. Fontana, discussed [facility] options [place] or [place] or Cardiology of choice. Pt will thi nk about options Appt 03/01/19 with Jenae Saucedo CNP Patient identified by name and date of . 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 KEVIN TONG ([id number]) 1970 [facility] Date Time Provider Department (48530) 02/11/19 FLY SCHMID (RN) FAMPWS During your [...] Dr. Fontana, discussed [facility] options [place] or [place] or Cardiology of choice. Pt wi ll think about options Appt 03/01/19 with Jenae Saucedo CNP Patient identified by name and date of . 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 Author Type: Nurse Practitioner Type: Progress Notes Filed: 02/01/2019 1:01 PM Note Text: Noted. Brenden Saucedo APRN.TASH PROGRESS HNO ID: [id number] Normal 02-01-2019 [facility] Author: Fly Schmid (Rn) [place] (18069) Service: ? Author Type: Registered Nurse Type: [...] WITHIN THE LAST 12 MONTHS: ? H[facility]PITAL: [facility] 10/31/17 Pulmonary Edema HTN DOES THIS PATIENT HAVE AN ADVANCE DIRECTIVE? ? No PRIMARY CARE COORDINATION OUTREACH PLAN: ? Labs pended for HM, HTN 11/07/18 BP 128/82 Appt 02/08/19 with Jenae Saucedo CNP ? Hubert Bill RN ? February 01, 2019 lipid panel, basic on 2019-02-01 Cholesterol [Mass/Vol] 219 <200 mg/dL High 019 [facility] (77852) Comment: Result Comment: <200 mg/dL, Desirable 200-239 mg/dL, Borderline hi gh >239 mg/dL, High Performed By: #### LIPB #### [facility] [address] [place], [place] [address] Cholesterol in HDL 42 >39 mg/dL Normal 02-01-2019 [facility] [Mass/Vol] (84921) Comment: Result Comment: 40-59 mg/dL, Acceptable >59 mg/dL, High: Negative ri sk factor for coronary heart disease <40 mg/dL, Low: Positive ris k factor for coronary heart disease Performed By: #### LIPB #### [facility] [address] [place], [place] [address] Cholesterol in LDL 159 <100 mg/dL High 02-01-2019 [facility] [Mass/Vol] (04803) Comment: Result Comment: <100 mg/dL, Optimal 100-129 mg/dL, Near optimal/ above optimal 130-159 mg/dL, Borderline hi gh 160-189 mg/dL, High >189 mg/dL, Very high Secondary prevention optimal LDL Cholesterol levels are recommended to be < 70 mg/dL Performed By: #### LIPB #### [facility] [address] [place] [address] Fasting Time 12 hrs Normal 02-01-2019 [facility] (08284) Comment: Performed By: #### LIPB #### [place] [address] [place] [address] LDL:HDL Ratio 3.79 <2.54 High 02-01-2019 [facility] (11235) Comment: Result Comment: Reference: 1. National Cholesterol Educ ation Program ATP III Guideline At-A-Glance Quick Desk Reference: National Heart, Lung, and Blood [place]. National Institutes of Health. 2001: NIH Publication No. 01-3305. 2. An International Atherosc lerosis Society position paper: global recommendations for the management of dyslipidemia: executive summary, Atherosclerosis. 2014: 232(2):410-413. Performed By: #### LIPB #### [facility] [address] [place], [place] [address] Non HDL Cholesterol 177 <130 mg/dL High 02-01-2019 [facility] (34954) Comment: Result Comment: <130 mg/dL, Optimal 130-159 mg/dL, Near optimal/ above optimal 160-189 mg/dL, Borderline hi gh 190-219 mg/dL, High >219 mg/dL, Very high Secondary prevention optimal non HDL Cholesterol levels are recommended to be < 100 mg/dL Performed By: #### LIPB #### [facility] [address] [place] [id number] TC:HDL Ratio 5.21 <5.10 High 02-01-2019 [facility] (79940) Comment: Performed By: #### LIPB #### [facility] [address] [place] [address] Triglyceride [Mass/Vol] 89 <150 mg/dL Normal 2018 [facility] (95168) Comment: Result Comment: <150 mg/dL, Normal 150-199 mg/dL, Borderline hi gh 200-499 mg/dL, High >499 mg/dL, Very high Performed By: #### LIPB #### [facility] [address] [place] [address] VLDL Cholesterol 18 <30 mg/dL Normal 02-01-2019 [facility] (08825) Comment: Performed By: #### LIPB #### [facility] [address] [place] [id number] cnptoutreach on 201 01-28-13 CNPTOUTREACH Patient Outreach (FAMPWS) Normal 0 02-01-[address] [facility] KEVIN TONG ([id number]) 1970 [facility] Date Time Provider Department (99606) 02/01/19 FLY SCHMID (RN) FAMPWS During your [...] WITHIN THE LAST 12 MONTHS: ? HOSPITAL: [facility] 10/31/17 Pulmonary Edema HTN DOES THIS [...] Saucedo - Fully Assessed Reason for Visit: Rehabilitation Construction Specialist- Other [8454] Cmt: ACO Prescriptions as of 02/01/2019 Sig: [...] heart failure)*INVALID FOR* Encounter Status:Closed by BRENDEN SUACEDO CNP on 02/01/19 tashtoutrmelody on 201 01-28-03 [facility] Normal 0 01-22-2019 [facility] KEVIN TONG ([id number]) 1970 [facility] Date Time Provider Department (68175) 01/22/19 RAGIN[facility]DEZ [facility] During your visit today, we recorded the following informati on about you: Allergies As of Date: 01/22/2019 Noted Allergy Reaction CODEINE 03/11/2015 9 - Itching LIDOCAINE 05/12/2005 11 - Vomiting Date Reviewed: 11/07/2018 Reviewed by: Brenden Saucedo - Fully Assessed Visit Diagnoses:Obesity, Cla ss III, BMI 40-49.9 (morbid obesity) ([facility]) [E66.01] Hypertension, essential [I10] Order(s):HGB A1C [STNAM6W] Order #: [id number] FUTURE LIPID PANEL BASIC [SQLIPB] Order #: [id number] FUTURE Prescriptions as of 01/22/2019 Sig: ALBUTEROL [...] BE BASED ON THE PRIMARY CLINICAL RECORDS. [facility] provides no warranty or guarantee of the accuracy or completeness of information in this document. UNRECOGNIZED CONTENT PROVIDED BELOW FOR UNRECOGNIZED SECTION No Status Records Found UNRECOGNIZED CONTENT PROVIDED BELOW FOR UNRECOGNIZED SECTION INFORMATION SOURCE DATE CREATED AUTHOR AUTHOR'S ORGANIZATIO N 12/13/2019 [facility] tresa
== END ==
PROVIDERS: PCP Family Medicine; Referring Provider Internal Medicine Nephrology; Visit Provider Internal Medicine Nephrology
DX: E87.1 Hypo-osmolality and hyponatremia (principal)
CPT/HCPCS: 36415; 80048

== ENCOUNTER → 2019-11-07 08:08 | Outpatient (CLI) | payer MEDICARE, SELFPAY ==
[2017-10-30 11:41] VITALS: BMI 37.2
[2019-11-07 09:35] LABS: Anion Gap 9 (5-15); BUN 21 mg/dL (7-18); BUN/Creat Ratio 16.3 RATIO (10-20); Calcium,Total 8.4 mg/dL (8.5-10.1); Chloride 97 mmol/L (98-107); Creatinine, Serum 1.29 mg/dL (0.70-1.30); EST Glomerular Filtration Rate 63 mL/min (>60); Est Glom Filt Rate - Afr Amer 76 mL/min (>60); Glucose 105 mg/dL (74-106); Potassium 3.9 mmol/L (3.5-5.1); Sodium Level 130 mmol/L (136-145)
== END ==
PROVIDERS: PCP Family Medicine; Referring Provider Internal Medicine Nephrology; Visit Provider Internal Medicine Nephrology
DX: E87.1 Hypo-osmolality and hyponatremia (principal)
CPT/HCPCS: 36415; 80048

== ENCOUNTER → 2019-12-24 09:50 | Outpatient (CLI) | payer MEDICARE, SELFPAY ==
[2017-10-30 11:41] VITALS: BMI 37.2
[2019-12-24 10:47] LABS: Anion Gap 4 (5-15); BUN 23 mg/dL (7-18); Calcium,Total 8.4 mg/dL (8.5-10.1); Chloride 105 mmol/L (98-107); Creatinine, Serum 1.35 mg/dL (0.70-1.30); EST Glomerular Filtration Rate 60 mL/min (>60); Est Glom Filt Rate - Afr Amer 72 mL/min (>60); Glucose 99 mg/dL (74-106); Potassium 4.4 mmol/L (3.5-5.1); Sodium Level 136 mmol/L (136-145)
== END ==
PROVIDERS: PCP Family Medicine; Referring Provider Internal Medicine Nephrology; Visit Provider Internal Medicine Nephrology
DX: E87.1 Hypo-osmolality and hyponatremia (principal)
CPT/HCPCS: 36415; 80048

== ENCOUNTER → 2020-02-20 10:16 | Outpatient (CLI) | payer MEDICARE, SELFPAY ==
[2017-10-30 11:41] VITALS: BMI 37.2
[2020-02-20 11:34] LABS: Anion Gap 7 (5-15); BUN 23 mg/dL (7-18); BUN/Creat Ratio 14.8 RATIO (10-20); Calcium,Total 8.9 mg/dL (8.5-10.1); Chloride 105 mmol/L (98-107); Creatinine, Serum 1.55 mg/dL (0.70-1.30); EST Glomerular Filtration Rate 51 mL/min (>60); Est Glom Filt Rate - Afr Amer 62 mL/min (>60); Glucose 103 mg/dL (74-106); Potassium 4.4 mmol/L (3.5-5.1); Sodium Level 135 mmol/L (136-145)
== END ==
PROVIDERS: PCP Family Medicine; Referring Provider Internal Medicine Nephrology; Visit Provider Internal Medicine Nephrology
DX: E87.1 Hypo-osmolality and hyponatremia (principal)
CPT/HCPCS: 36415; 80048

== ENCOUNTER → 2020-06-17 08:02 | Outpatient (CLI) | payer MEDICARE, SELFPAY ==
[2017-10-30 11:41] VITALS: BMI 37.2
[2020-06-17 09:01] LABS: Albumin, Serum 3.9 g/dL (3.2-5.0); BUN 15 mg/dL (7-18); BUN/Creat Ratio 10.3 RATIO (10-20); Calcium,Total 8.9 mg/dL (8.5-10.1); Chloride 103 mmol/L (98-107); Creatinine, Serum 1.46 mg/dL (0.70-1.30); EST Glomerular Filtration Rate 55 mL/min (>60); Est Glom Filt Rate - Afr Amer 66 mL/min (>60); Glucose 97 mg/dL (74-106); Phosphorus 3.2 mg/dL (2.5-4.9); Potassium 4.2 mmol/L (3.5-5.1); Sodium Level 133 mmol/L (136-145)
== END ==
PROVIDERS: PCP Family Medicine; Referring Provider Internal Medicine Nephrology; Visit Provider Internal Medicine Nephrology
DX: N18.30 Chronic kidney disease, stage 3 unspecified (principal)
CPT/HCPCS: 36415; 80069

== ENCOUNTER → 2021-01-18 08:48 | Outpatient (CLI) | payer MEDICARE, SELFPAY ==
[2017-10-30 11:41] VITALS: BMI 37.2
[2021-01-18 09:18] LABS: Absolute Lymphocyte Count 1.46 X10^3/uL (0.83-4.51); Absolute Neutrophil Count 5.1 X10^3/uL (2.0-7.7); Basophil# 0.04 X10^3/uL; Basophil% 0.5 % (0-1); Eosinophil# 0.38 X10^3/uL; Eosinophils% 4.6 % (0-5); Hematocrit 35.8 % (40-54); Hemoglobin 11.9 g/dL (13.0-16.5); Lymphocyte # 1.46 X10^3/ul (0.83-4.51); Lymphocyte % 17.8 % (19-41); Mean Corp Hgb Conc 33.2 g/dL (32-36); Mean Corpuscular Hgb 28.2 pg (27.0-32.0); Mean Corpuscular Volume 84.8 fL (80-94); Mean Platelet Vol. 8.5 fl (6.2-12.0); Monocyte# 1.16 X10^3/uL; Monocyte% 14.1 % (0-10); NRBC Flagged by Analyzer 0 % (0-5); Neutrophil # 5.12 X10^3/uL (2.7-7.7); Neutrophil % 62.3 % (47-70); Platelet Count 280 K/mm3 (150-450); RBC Distribution Width CV 14.1 % (11.6-14.6); RBC Distribution Width SD 43.8 fl (35.1-43.9); Red Blood Count 4.22 M/mm3 (4.6-6.2); White Blood Count 8.2 K/mm3 (4.4-11.0)
[2021-01-18 09:39] LABS: Valproic Acid (Depakene) Level 61 ug/mL (50-100)
[2021-01-18 09:44] LABS: PTHIN 24.1 pg/mL (18.4-80.1)
[2021-01-18 09:47] LABS: ALB/GLOB Ratio 0.9 RATIO (0.9-2.4); AST(SGOT) 13 U/L (15-37); Alanine Aminotransfer ALT/SGPT 22 U/L (16-61); Albumin, Serum 3.5 g/dL (3.2-5.0); Alkaline Phosphatase 75 U/L (45-117); Anion Gap 5 (5-15); BUN 16 mg/dL (7-18); BUN/Creat Ratio 11.1 RATIO (10-20); Calcium,Total 8.9 mg/dL (8.5-10.1); Chloride 96 mmol/L (98-107); Creatinine, Serum 1.44 mg/dL (0.70-1.30); EST Glomerular Filtration Rate 55 mL/min (>60); Est Glom Filt Rate - Afr Amer 67 mL/min (>60); Globulin 4.1 g/dL (2.2-4.2); Glucose 95 mg/dL (74-106); Phosphorus 3.4 mg/dL (2.5-4.9); Potassium 4.5 mmol/L (3.5-5.1); Protein, Total 7.6 g/dL (6.4-8.2); Sodium Level 128 mmol/L (136-145); Thyroid Stim Hormone (TSH) 1.01 uIU/mL (0.358-3.74)
[2021-01-20 13:11] LABS: Trileptal-Oxcarbazepine 8 ug/mL (10-35)
== END ==
PROVIDERS: PCP Family Medicine; Referring Provider Internal Medicine Nephrology; Visit Provider Internal Medicine Nephrology
DX: N18.31 Chronic kidney disease, stage 3a (principal); Z79.899 Other long term (current) drug therapy
CPT/HCPCS: 36415; 80053; 80164; 82140; 82542; 83970; 84100; 84443; 85025

== ENCOUNTER 2023-06-15 13:58 | Inpatient (IN) | payer MEDICARE, MEDICAID, SELFPAY ==
[2023-06-15] VITALS (22 sets, daily range): BP systolic 159–200; BP diastolic 117–145; PULSE 89–110; RESP 9–32; TEMP 35.8–36.4; O2SAT 92–98; BMI 34.9
[2023-06-15 14:14] LABS: Absolute Lymphocyte Count 1.86 X10^3/uL (0.83-4.51); Basophil# 0.03 X10^3/uL; Basophil% 0.3 % (0-1); Eosinophils% 2.3 % (0-5); Hematocrit 38.9 % (40-54); Hemoglobin 12.7 g/dL (13.0-16.5); Lymphocyte # 1.86 X10^3/ul (0.83-4.51); Lymphocyte % 21.6 % (19-41); Mean Corp Hgb Conc 32.6 g/dL (32-36); Mean Corpuscular Hgb 27.3 pg (27.0-32.0); Mean Corpuscular Volume 83.7 fL (80-94); Mean Platelet Vol. 10.4 fl (6.2-12.0); Monocyte# 0.49 X10^3/uL; Monocyte% 5.7 % (0-10); NRBC Flagged by Analyzer 0 % (0-5); Neutrophil # 6.02 X10^3/uL (2.7-7.7); Neutrophil % 69.8 % (47-70); Platelet Count 247 K/mm3 (150-450); RBC Distribution Width CV 15.1 % (11.6-14.6); RBC Distribution Width SD 45.3 fl (35.1-43.9); Red Blood Count 4.65 M/mm3 (4.6-6.2); White Blood Count 8.6 K/mm3 (4.4-11.0)
[2023-06-15 14:49] LABS: Anion Gap 10 (5-15); BUN 29 mg/dL (7-18); BUN/Creat Ratio 13.7 RATIO (10-20); Calcium,Total 9.4 mg/dL (8.5-10.1); Chloride 108 mmol/L (98-107); Creatinine, Serum 2.12 mg/dL (0.70-1.30); EST Glomerular Filtration Rate 35 mL/min (>60); Est Glom Filt Rate - Afr Amer 42 mL/min (>60); Glucose 134 mg/dL (74-106); Potassium 3.8 mmol/L (3.5-5.1); Sodium Level 137 mmol/L (136-145); Troponin-I HS (w/2H Reflex) 299 pg/mL (3.0-78.0)
--- NOTE | 2023-06-15 15:00 | RAD_ITS ---
STUDY: X-RAY CHEST REASON FOR EXAM: Male, 53 years old. Chest pain TECHNIQUE: Single AP portable view of the chest. COMPARISON: Comparison is made with prior study dated October 30, 2017. FINDINGS: EKG electrodes are seen. The lungs are clear and expanded. There is no demonstrated pleural abnormality. There is mild cardiac enlargement. Normal mediastinum and eris. Normal visualized pulmonary arteries. Normal visualized aortic arch and descending thoracic aorta. There are diffuse degenerative changes of the visualized thoracic spine. Normal visualized ribs, clavicles, and shoulders. There is no demonstrated abnormality of the visualized soft tissue structures of the upper abdomen. RAD/Chest 1 View (Portable) IMPRESSION: Mild cardiomegaly. The lungs are clear. Electronically Signed: Jose Richards MD at 15:39 EST ,
--- NOTE | 2023-06-15 15:11 | ED.VIS.CHEST ---
HPI History of Present Illness Chief Complaint: Chest Pain Informant: patient Onset/Context/Timing Onset: Weeks Activity at onset: gradual Timing: Continuous Quality: Positive for Aching and Dull Location: Substernal Maximum Severity: Mild Relieved By: Nothing Associated Symptoms: Positive for Nausea and Dyspnea Narrative Narrative: 53-year-old male history of asthma, CHF and chronic kidney disease stage III with hypertension. States has been out of his medications for 4 weeks. 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 Presents today with centralized chest pain, shortness of breath. He says it feels like someone standing on his chest. Denies any leg pain or swelling. No history of DVT or PE or hemoptysis. He is on no blood thinners. He denies any prior cardiac surgery nor any prior stress test or heart catheterization. Prior Similar Symptoms: Yes Recent Illness/Hospitalization: No CVD Risk Factors: Positive for Hypertension; Negative for Diabetes or Smoking PE Risk Factors: Negative for Recent Travel/Surgery, Recent Immobilization, Prior DVT or PE, Cancer or OCP + Smoking + >/=35 TAD Risk Factors: Negative for Marfan's Syndrome [facility] Medical History Asthma Hypertension Home Medications albuterol sulfate 90 mcg/actuation aerosol inhaler 2 puff inhalation Q6H PRN PRN Sob &/Or Wheezing ##1 10/31/17 [Rx Last Taken Unknown] amlodipine 5 mg tablet (Norvasc) 5 mg PO DAILY 30 days #30 tabs 10/31/17 [Rx Last Taken Unknown] budesonide-formoterol HFA 160 mcg-4.5 mcg/actuation aerosol inhaler 10.2 gm IH BID 30 days 10/31/17 [Rx Last Taken Unknown] hydrochlorothiazide 25 mg tablet 25 mg PO DAILY 30 days ##30 10/31/17 [Rx Last Taken Unknown] prednisone 10 mg tablet 10 mg PO UD #30 tabs 10/31/17 [Rx Last Taken Unknown] Allergy/AdvReac Type Severity Reaction Status Date / Time hydrocodone bitartrate Allergy Itching Verified 06/15/23 14:11 [From Vicodin] Social History Smoking Status: Never smoker ROS ROS ED ROS Narrative Chest pain. Shortness of breath. Review of Systems ROS Unobtainable: Denies due to encephalopathy Constitutional Constitutional ED: Denies chills or fever(s) Eyes Eyes: Reports none ENT ENT ED: Denies ear pain or rhinorrhea Cardiovascular Cardiovascular: Reports as per HPI and chest pain; Denies palpitations or racing heartbeat Respiratory/Chest Respiratory/Chest: Reports dyspnea; Denies cough Gastrointestinal Gastrointestinal: Reports nausea; Denies abdominal pain, constipation, diarrhea or melena Genitourinary Genitourinary ED: Denies dysuria or hematuria Musculoskeletal Musculoskeletal: Denies arthralgias or back pain Integumentary Denies abscess Neurologic Neurologic: Denies headache(s) Psychiatric Psychiatric: Denies anxiety or depression Endocrine Endocrinology: Denies cold intolerance Hematologic/Lymphatic Hematologic/Lymphatic: Denies easy bleeding, easy bruising or lymphadenopathy Allergic/Immunologic Allergic/Immunologic ED: Denies mouth swelling or tongue swelling EXAM Physical Exam Narrative Exam Narrative: 53-year-old male vital signs show elevated blood pressure 200/140. Pulse ox 95% on room air no signs of hypoxia. HEENT exam unremarkable. Neck nontender. Lungs clear to auscultation bilaterally. Heart tachycardic rate of 105 no murmur. Chest wall tender along his left rib cage but no crepitus or subcu air or bruising to his left lateral chest. No signs of trauma. Abdomen is soft and nontender. Normal bowel sounds no peritoneal signs. Moving all 4 extremities. Calves are nontender without edema or cords. Neurologically is awake alert with no focal motor deficits. Back nontender. Const Vital Signs: 06/15/23 13:59 06/15/23 14:48 06/15/23 14:53 Temperature 96.5 F L Temperature Source Temporal Pulse Rate 110 H Respiratory Rate 20 H Respiratory Effort Short of Breath Blood Pressure 200/140 H Blood Pressure Mean 160 Pulse Ox 95 92 Oxygen Delivery Method Room Air Room Air 06/15/23 14:53 06/15/23 15:24 Temperature Temperature Source Pulse Rate 105 H 107 H Respiratory Rate 16 16 Respiratory Effort Blood Pressure 178/127 H 192/135 H Blood Pressure Mean 144 154 Pulse Ox 92 95 Oxygen Delivery Method Room Air Room Air Positive well nourished and well developed; Negative for cachectic, contractures or unkempt General Appearance ED: well developed and NAD; Negative for unkempt, cachectic, contractures or pallor Nutritional Appearance: Negative for cachectic HEENT Reports moist mucous membranes normocephalic and atraumatic; Negative for trauma or tenderness Eyes PERRL and EOMs intact bilaterally General Eye ED: Negative for pale conjunctiva or scleral icterus Neck no lymphadenopathy, supple and no JVD General: Negative for tenderness Chest Wall inspection of chest normal; Negative for palpation of chest normal Chest Narrative: Left lateral chest wall tenderness. No signs of trauma. No crepitance or subcu air. No bony deformity. Chest: tenderness Resp normal respiratory effort and clear to auscultation bilaterally Effort and Inspection: Negative for respiratory distress Auscultation: Negative for rales, rhonchi, wheezes or diminished lung sounds Cardio regular rhythm, S1 normal heart sound, S2 normal heart sound and no murmurs; Negative for regular rate Rate: tachycardic GI normal to inspection, nondistended, normoactive bowel sounds, soft to palpation, non-tender, non-distended and no masses Back/Spine no CVA tenderness and no thoracic nor lumbar tenderness General Back: Negative for CVA tenderness Cervical Spine: Negative for cervical spine tenderness Extremity normal to inspection General Extremety ED: Negative for edema or pulses abnormal General Extremity: Negative for edema or pulses abnormal Neuro oriented x3 and CN's II-XII intact bilaterally Sensorium / Orientation: awake, alert, oriented to person, oriented to place and oriented to time; Negative for confused, lethargic or stuporous Motor Exam: strength 5/5 throughout Psych mental status grossly normal Appearance: Negative for unkempt Attitude: No agitated Mood & Affect: Negative for depressed, anxious or tearful Skin no rashes or lesions noted and no wounds General Skin Exam: Negative for jaundice or pallor Rashes: No rashes noted MDM MDM MDM Narrative Medical decision making narrative: 53-year-old male chest pain shortness of breath. No history of DVT or PE or significant risk factors. This may be cardiac in etiology, congestive heart failure versus other etiologies. Does not appear to be infectious from history and exam. Patient undergo cardiac workup with a chest x-ray and EKG. Patient be admitted for elevated troponin, chest pain or shortness of breath. Most likely secondary to being out of his medications and due to his hypertension. Obviously he will need further evaluation of his elevated troponin. I have already spoke to the hospitalist patient will be a PCU telemetry observation admit. Will be given Lopressor for his blood pressure Nitropaste. History & Record Review Discussion w/independent historian: Patient Additional record(s) reviewed:: Prior inpatient record, Prior outpatient record, Prior ED visit and Prior labs Lab Data Attestation: I reviewed the patient's lab results. Lab results narrative: CBC shows a white count 8. H&H 12.7 and 30.9 which is his baseline. Platelets 247. Electrolytes show gap of 10. BUN 29 creatinine 2.12 which is worse than his baseline creatinine. Glucose 134. Troponins elevated to 299 I do not have any old ones for comparison. Labs: Laboratory Results - last 24 hr 06/15/23 14:09 WBC 8.6 RBC 4.65 Hgb 12.7 L Hct 38.9 L MCV 83.7 MCH 27.3 MCHC 32.6 RDW Std Deviation 45.3 H RDW Coeff of Claude 15.1 H Plt Count 247 MPV 10.4 Immature Gran % (Auto) 0.300 Neut % (Auto) 69.8 Lymph % (Auto) 21.6 Sterling % (Auto) 5.7 Eos % (Auto) 2.3 Baso % (Auto) 0.3 Absolute Neuts (auto) 6.0 Absolute Lymphs (auto) 1.86 Nucleated RBC % 0 Sodium 137 Potassium 3.8 Chloride 108 H Carbon Dioxide 19.0 L Anion Gap 10 BUN 29 H Creatinine 2.12 H Est GFR (MDRD) Af Amer 42 L Est GFR (MDRD) Non-Af 35 L BUN/Creatinine Ratio 13.7 Glucose 134 H Calcium 9.4 Troponin I High Sens 299 H* Radiography Chest X-Ray - ED: 1 View, Read by ED Physician, Heart, Lungs, Mediastinum, Bony Structures, No Acute Disease and Chronic Changes Diagnostic Testing: Acute abnormality.Chest x-ray, portable, single view shows normal cardiac silhouette mediastinum. Normal lung cote. Interpreted by myself. Rhythm Strip Rhythm Strip: Sinus Tach Rate: 107 Ectopy: None EKG Initial EKG: Attestation: I personally reviewed and interpreted this EKG as follows: Interpretation: No Acute Injury Pattern and Sinus Tachycardia Comments: Sinus tachycardia rate of 107 no acute signs of NE or ischemia. LVH. Unchanged from prior EKG from October 2017. Discharge Plan Triage Chief Complaint: Chest Pain ED Provider: Jonathon Watkins Dx/Rx/DC Orders Clinical Impression: Hypertensive urgency, Medical non-compliance, Chronic kidney disease, Chest pain Prescriptions: No Action budesonide-formoterol 6 GM HFA aerosol inhaler 10.2 gm IH BID 30 Days 3RF prednisone 10 MG tablet 10 mg PO UD Qty: 30 0RF Rx Instructions: TAKE 4 TABLETS BY MOUTH DAILY WITH FOOD FOR 3 DAYS, THEN TAKE 3 TABLETS BY MOUTH DAILY WITH FOOD FOR 3 DAYS, THEN TAKE 2 TABLETS BY MOUTH DAILY WITH FOOD FOR 3 DAYS, THEN TAKE 1 TABLETS BY MOUTH DAILY WITH FOOD FOR 3 DAYS, THEN STOP albuterol sulfate 1 INHALER inhaler 2 puff INHALATION Q6H PRN PRN (Reason: Sob &/Or Wheezing) Qty: 1 3RF amlodipine [Norvasc] 5 MG tablet 5 mg PO DAILY 30 Days Qty: 30 3RF hydrochlorothiazide 25 MG tablet 25 mg PO DAILY 30 Days Qty: 30 3RF Primary Care Provider: Venkat Catalan Referrals: Venkat Catalan MD [Primary Care Provider] - Disposition Disposition: Acute Care Hospital [facility]
--- NOTE | 2023-06-15 15:24 | PCM.HP.STD ---
HPI - General General Date of Admission: 06/15/23 Date of Service: 06/15/23 Chief Complaint: Chest pain, shortness of breath HPI Narrative KEVIN PHILLIP, is a 53 M who presented to [facility] ED on 06/15/2023 with chest pain or shortness of breath. Patient seen at bedside in the ED. Patient was sitting up in bed and conversing normally during our interview. Patient was fairly anxious and reported intermittent chest pain and difficulty catching his breath at rest. He notably was satting in the high 90s on room air with no increased work of breathing noted. Heart rate was noted to be sinus rhythm in the 90s on monitor. Blood pressure remained in the 170s/130s during our encounter. Patient states that he has history of high blood pressure, heart failure and chronic disease. He previously followed with a rotary machine operator at [facility] but this rotary machine operator retired recently. His PCP is Dr. Catalan. Patient states that he has not been out of medications for about 1 month. His symptoms have been slightly worsening over the past 3 weeks or so. It has gotten to the point where he cannot walk more than about 10 to 20 feet without getting short of breath and having chest pain. States he has also been under a good deal of stress recently and has not been sleeping well. He otherwise denies any abdominal pain or discomfort. Denies any lightheadedness or dizziness. Denies any fevers or chills. No other acute concerns at this time. On review of [facility] records, patient was hospitalized at [facility] from 06/25-06/27/2022 for worsening shortness of breath and volume overload. He was found on TTE to have an EF of 20% with moderate diffuse hypokinesis and diastolic dysfunction. Left heart cath was done during that admission that showed only mild disease of the mid LAD and proximal D1 arteries. Cardiology followed there and diagnosed him with nonischemic cardiomyopathy. He was discharged on Entresto, Toprol, aspirin, high intensity statin, and Lasix. Patient notably denies any lower extremity swelling at this time, states that his current pain feels more like a chest heaviness and pressure whereas at [facility] last year he felt like he was drowning in fluid. [facility] Medical History (Updated 06/15/23 @ 20:[address] Kev Waters, DO) Anxiety Asthma Congestive heart failure (CHF) Depression Hypertension Kidney disease Myocardial infarct Non-smoker Rheumatoid arthritis Home Medications albuterol sulfate 90 mcg/actuation aerosol inhaler 2 puff inhalation Q6H PRN PRN Sob &/Or Wheezing ##1 10/31/17 [Rx Last Taken Unknown] amlodipine 5 mg tablet (Norvasc) 5 mg PO DAILY 30 days #30 tabs 10/31/17 [Rx Last Taken Unknown] budesonide-formoterol HFA 160 mcg-4.5 mcg/actuation aerosol inhaler 10.2 gm IH BID 30 days 10/31/17 [Rx Last Taken Unknown] hydrochlorothiazide 25 mg tablet 25 mg PO DAILY 30 days ##30 10/31/17 [Rx Last Taken Unknown] prednisone 10 mg tablet 10 mg PO UD #30 tabs 10/31/17 [Rx Last Taken Unknown] atorvastatin 40 mg tablet 40 mg PO QHS 06/15/23 [History Last Taken Unknown] furosemide 40 mg tablet 40 mg PO DAILY 06/15/23 [History Last Taken Unknown] metoprolol succinate 25 mg tablet,extended release 24 hr 25 mg PO DAILY 06/15/23 [History Last Taken Unknown] trazodone 150 mg tablet 150 mg PO QHS 06/15/23 [History Last Taken Unknown] Allergy/AdvReac Type Severity Reaction Status Date / Time hydrocodone bitartrate Allergy Itching Verified 06/15/23 14:11 [From Vicodin] Family History no significant family his Surgical History History of cholecystectomy Social History Smoking Status: Never smoker ROS Constitutional Constitutional: Denies chills, fatigue, fever(s) or weakness Eyes Eyes: Denies change in vision Cardiovascular Cardiovascular: Reports chest pain and dyspnea on exertion; Denies edema, lightheadedness, orthopnea or palpitations Respiratory/Chest Respiratory/Chest: Reports shortness of breath with exertion; Denies cough, productive cough, shortness of breath at rest or wheezing Gastrointestinal Gastrointestinal: Denies abdominal pain, constipation, diarrhea, nausea or vomiting Genitourinary Genitourinary: Denies dysuria Musculoskeletal Musculoskeletal: Denies arthralgias or back pain Neurologic Neurologic: Denies dizziness, focal weakness, headache(s), numbness or paresthesias Psychiatric Psychiatric: Reports anxiety Vital Signs Vital Signs Vital Signs: 06/15/23 13:59 06/15/23 14:48 06/15/23 14:53 Temperature 96.5 F L Temperature Source Temporal Pulse Rate 110 H Respiratory Rate 20 H Respiratory Effort Short of Breath Blood Pressure 200/140 H Blood Pressure Mean 160 Pulse Ox 95 92 Oxygen Delivery Method Room Air Room Air 06/15/23 14:53 Temperature Temperature Source Pulse Rate 105 H Respiratory Rate 16 Respiratory Effort Blood Pressure 178/127 H Blood Pressure Mean 144 Pulse Ox 92 Oxygen Delivery Method Room Air Physical Exam Const alert and oriented x3 Constitutional Narrative: Middle-age male, obese, sitting up in bed, very talkative, answering questions appropriately, moderately anxious due to chest pain and subjective shortness of breath. General Appearance: cooperative HEENT normocephalic, head/scalp atraumatic, hearing grossly normal bilaterally, nasal mucous membranes and turbinates normal and moist oral mucous membranes Eyes PERRL, EOMs intact bilaterally and conjunctivae normal Neck full ROM, no lymphadenopathy and supple Lymph Lymphatic: no lymphadenopathy noted Chest inspection of chest normal Resp normal respiratory effort and no use of accessory muscles Resp Narrative: Mild decreased breath sounds bilaterally throughout. No wheezing or crackles noted. Satting well on room air, no increased work of breathing noted. Cardio regular rate, regular rhythm, no murmurs and peripheral pulses 2+ throughout GI normal to inspection, nondistended, normoactive bowel sounds, soft to palpation, non-tender and non-distended Back/Spine normal ROM Extremity normal to inspection, full ROM and no pedal edema Skin no rashes or lesions noted Neuro moves all extremities and no focal motor deficits Speech: speech normal Psych mental status grossly normal Results Lab / Micro Data 06/15/23 14:09 06/15/23 14:09 Labs: Laboratory Results - last 24 hr 06/15/23 14:09: WBC 8.6, RBC 4.65, Hgb 12.7 L, Hct 38.9 L, MCV 83.7, MCH 27.3, MCHC 32.6, RDW Std Deviation 45.3 H, RDW Coeff of Claude 15.1 H, Plt Count 247, MPV 10.4, Immature Gran % (Auto) 0.300, Neut % (Auto) 69.8, Lymph % (Auto) 21.6, Stephens % (Auto) 5.7, Eos % (Auto) 2.3, Baso % (Auto) 0.3, Absolute Neuts (auto) 6.0, Absolute Lymphs (auto) 1.86, Nucleated RBC % 0, Sodium 137, Potassium 3.8, Chloride 108 H, Carbon Dioxide 19.0 L, Anion Gap 10, BUN 29 H, Creatinine 2.12 H, Est GFR (MDRD) Af Amer 42 L, Est GFR (MDRD) Non-Af 35 L, BUN/Creatinine Ratio 13.7, Glucose 134 H, Calcium 9.4, Troponin I High Sens 299 H* Rhythm Strip Rhythm Strip: Sinus Tach Rate: 107 Ectopy: None Assessment & Plan Assessment/Plan (1) NSTEMI, initial episode of care: (2) Congestive heart failure (CHF): QUALIFIERS: Heart failure type: systolic Heart failure chronicity: acute on chronic Qualified Code(s): I50.23 - Acute on chronic systolic (congestive) heart failure (3) Medical non-compliance: (4) Hypertensive urgency: PLAN: Plan Patient is a 53-year-old male who presented to [facility] ED on 06/15/2023 with worsening chest pain and shortness of breath. 1. NSTEMI Suspect type II in setting of hypertensive urgency with decompensated heart failure as noted below. Presented with chest pain and significantly elevated blood pressure. Has history of nonischemic cardiomyopathy as noted below. Last heart cath at [facility] in 06/2022 showed only mild disease of the mid LAD and proximal D1. Initial troponin 299, repeat 266, third troponin pending. EKG shows sinus tachycardia, possible T wave inversions in leads V6, 1 and aVL. ? Admit under inpatient status to PCU. Cardiology consulted. Repeat echo ordered. Treating heart failure exacerbation as noted below. 2. Hypertensive urgency ? Presumed secondary to medication nonadherence. BP consistently elevated to 170s-200s/110s-130s on admit. Had chest pain on admit, AVINASH as noted below. Cardiology consulted as noted above. Treating with aggressive IV Lasix, Coreg 25 mg twice daily, losartan 50 mg twice daily, spironolactone 25 mg daily. Monitor BP closely. 3. AVINASH on CKD stage IIIa ? Creatinine 2.12 on admit, baseline creatinine 1.3-1.6. Presumed prerenal AVINASH in setting of heart failure exacerbation and hypertensive urgency. Monitor daily BMP and urine output. 4. CHF exacerbation, history of combined heart failure with nonischemic cardiomyopathy Last echo from 06/2022 showed EF of 20% with moderate diffuse hypokinesis and diastolic dysfunction. Reports that he has been unable to lie flat due to significant orthopnea and PND. Does only have trace lower extremity edema and minimal infiltrates on chest x-ray. BNP pending. ? Cardiology following as above. Treating with aggressive IV diuresis, monitor urine output and clinical status. Treating with new medication regimen as noted above. 5. Medication nonadherence, difficult social situation ? Patient reports difficulty affording his medications. Recently moved from one apartment to another in [place], reports difficulty paying his rent. Case management consulted. Chronic medical conditions: ? Asthma: Not in acute exacerbation. DuoNebs as needed. ? Mood disorder, insomnia: Continue trazodone at night scheduled. DVT prophylaxis: Heparin subcu CODE STATUS: Full code, verified Expected disposition: TBD Total clinical time spent by myself addressing the patient's medical issues, reviewing all the data, and collaborating with patient's care team: 55 minutes. Charges/Coding Visit Charges Inpatient E&M: 41235 Init Hosp L2
[2023-06-15] MEDS: Metoprolol Tartrate 5 MG/5 ML Vial IV (15:25)
--- OUTSIDE RECORDS SUMMARY | 2023-06-15 15:37 | XMS RPT_ITS | CCD ---
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 Allergies codeine Medications Please ask your primary doctor or pharmacist before taking any other medication not listed, including over the counter drugs, herbal medications, vitamins and or supplements as they may interact with your home medications. What How Much When Instructions Last Dose New aspirin (aspirin 81 mg oral tablet, chewable) 1 tab(s) by mouth Every day Duration: 60 Days Refills: 6 Pickup at [facility] #[id number] last dose at 8 am on 06/27 New atorvastatin (atorvastatin 40 mg oral tablet) 1 tab(s) by mouth Once a day Duration: 60 Days Refills: 6 Pickup at [facility] #[id number] last dose at 9pm on 06/26 New furosemide (Lasix 40 mg oral tablet) 1 tab(s) by mouth Once a day Duration: 60 Days Refills: 6 Pickup at [facility] #[id number] last dose at 8 am on 06/27 New metoprolol (Toprol-XL 25 mg oral tablet, extended release) 1 tab(s) by mouth Once a day with a meal Duration: 60 Days Refills: 6 Pickup at [facility] #[id number] last dose at 8 am on 06/27 New sacubitril-valsartan (Entresto 24 mg-26 mg oral tablet) 1 tab(s) by mouth Two (2) times a day Duration: 30 Days Refills: 6 Pickup at [facility] #[id number] last dose at 8 am on 06/27 Unchanged albuterol (Ventolin HFA MDI (90 mcg/ inh) inhalation aerosol) 1 puff(s) by inhalation Four (4) times a day Duration: 30 Days last at 11 am on 06/27 Unchanged QUEtiapine (SEROquel XR 200 mg oral tablet, extended release) 1 tab(s) by mouth Daily at bedtime last dose at 9pm on 06/26 Unchanged traZODone (traZODone 100 mg oral tablet) 1 tab(s) by mouth Daily at bedtime last dose at 9pm on 06/26 Unchanged traZODone (traZODone 100 mg oral tablet) 2 tab(s) by mouth Daily at bedtime last dose at 9pm on 06/26 Pharmacy Information [facility] #[id number]: [address], [place] [id number] [phone] Please take this list to your next doctor s visit. Bring all medications you take, including over the counter medications, herbals and other supplements with you to your doctor s visit. Patients and families are reminded to discard old lists and to update any records with all medication providers or retail pharmacies. Medication Leaflets sacubitril and valsartan (sak UE bi tril and adriana SUSANNA pickens) Entresto What is the most important information I should know about sacubitril and valsartan? Do not use if you are , and tell your doctor right away if you become . If you have diabetes, do not use sacubitril and valsartan together with any medication that contains aliskiren (a blood pressure medicine). What is sacubitril and valsartan? Sacubitril and valsartan are blood pressure medicines. Valsartan is an angiotensin II receptor maegan (sometimes called an ARB). Sacubitril and valsartan is a combination medicine that is used in adults with chronic heart failure. This medicine helps lower the risk of needing to be hospitalized when symptoms get worse, and helps lower the risk of from heart failure. Sacubitril and valsartan is also used to treat heart failure in children who are at least 1 year old. Sacubitril and valsartan is usually given together with other heart medications. Sacubitril and valsartan may also be used for purposes not listed in this medication guide. What should I discuss with my healthcare provider before taking sacubitril and valsartan? You should not use this medicine if you are allergic to sacubitril or valsartan (Adamaris), or if you have ever had a severe allergic reaction to a blood pressure medication such as: an MALA inhibitor--benazepril, captopril, enalapril, fosinopril, lisinopril, moexipril, perindopril, quinapril, ramipril, trandolapril (Lotensin, Vasotec, Prinivil, Accupril, Mavik, and others); or an ARB--azilsartan, candesartan, eprosartan, irbesartan, losartan, olmesartan, telmisartan, valsartan (Atacand, Avapro, Benicar, Diovan, Edarbi, Micardis, Teveten, and others). You should not take sacubitril and valsartan within 36 hours before or after you have taken any MALA inhibitor medication. If you have diabetes, do not use sacubitril and valsartan together with any medication that contains aliskiren (a blood pressure medicine). You may also need to avoid taking sacubitril and valsartan with aliskiren if you have kidney disease. Tell your doctor if you have ever had: liver disease; hereditary angioedema; or if you are on a hjn-chnb-ibey. Do not use if you are , and tell your doctor right away if you become . Sacubitril and valsartan can cause injury or to the unborn baby if you take the medicine during your second or third trimester. You should not breastfeed while using this medicine. How should I take sacubitril and valsartan? Follow all directions on your prescription label and read all medication guides or instruction sheets. Your doctor may occasionally change your dose. Use the medicine exactly as directed. You may take this medicine with or without food. Sacubitril and valsartan doses are based on weight in children. Your child's dose needs may change if the child gains or loses weight. If you cannot swallow a tablet whole, a pharmacist can make an oral suspension (liquid). Tell the doctor if the person taking this medicine has trouble swallowing the tablet. Shake the oral suspension (liquid) before you measure a dose. Use the dosing syringe provided, or use a medicine dose-measuring device (not a kitchen spoon). Your blood pressure will need to be checked often. Your kidney function may also need to be checked. Store at room temperature away from moisture and heat. Throw away any oral suspension not used within 15 days after it was mixed. Do not keep the oral suspension in a refrigerator. What happens if I miss a dose? Take the medicine as soon as you can, but skip the missed dose if it is almost time for your next dose. Do not take two doses at one time. What happens if I overdose? Seek emergency medical attention or call the Poison Help line at . What should I avoid while taking sacubitril and valsartan? Do not use potassium supplements or salt substitutes, unless your doctor has told you to. Avoid getting up too fast from a sitting or lying position, or you may feel dizzy. What are the possible side effects of sacubitril and valsartan? Get emergency medical help if you have signs of an allergic reaction: hives; difficulty breathing; swelling of your face, lips, tongue, or throat. You may be more likely to have an allergic reaction if you are -Stateless. Also call your doctor at once if you have: a light-headed feeling, like you might pass out; extreme tiredness; high potassium--slow heart rate, weak pulse, muscle weakness, tingly feeling; or kidney problems--little or no urination, rapid weight gain, painful or difficult urination, swelling in your hands, feet, or ankles. Common side effects may include: kidney problems; high potassium; dizziness, feeling light-headed; or cough. This is not a complete list of side effects and others may occur. Call your doctor for medical advice about side effects. You may report side effects to FDA at 2-831-YFP-4146. What other drugs will affect sacubitril and valsartan? Tell your doctor about all your other medicines, especially: aliskiren; lithium; any other heart or blood pressure medicines; a diuretic or 'water pill'; medicine or mineral supplements that contain potassium; or NSAIDs (nonsteroidal anti-inflammatory drugs)--aspirin, ibuprofen (Advil, Motrin), naproxen (Aleve), celecoxib, diclofenac, indomethacin, meloxicam, and others. This list is not complete. Other drugs may affect sacubitril and valsartan, including prescription and nvck-mka-ulmsgdr medicines, vitamins, and herbal products. Not all possible drug interactions are listed here. Where can I get more information? Your pharmacist can provide more information about sacubitril and valsartan. Remember, keep this and all other medicines out of the reach of children, never share your medicines with others, and use this medication only for the indication prescribed. Every effort has been made to ensure that the information provided by [employer]') is accurate, up-to-date, and complete, but no guarantee is made to that effect. Drug information contained herein may be time sensitive. [employer] information has been compiled for use by healthcare practitioners and consumers in the [place] and therefore [employer] does not warrant that uses outside of the [place] are appropriate, unless specifically indicated otherwise. [employer] drug information does not endorse drugs, diagnose patients or recommend therapy. [employer] drug information is an informational resource designed to assist licensed healthcare practitioners in caring for their patients and/or to serve consumers viewing this service as a supplement to, and not a substitute for, the expertise, skill, knowledge and judgment of healthcare practitioners. The absence of a warning for a given drug or drug combination in no way should be construed to indicate that the drug or drug combination is safe, effective or appropriate for any given patient. [facility] does not assume any responsibility for any aspect of healthcare administered with the aid of information [facility] provides. The information contained herein is not intended to cover all possible uses, directions, precautions, warnings, drug interactions, allergic reactions, or adverse effects. If you have questions about the drugs you are taking, check with your doctor, nurse or pharmacist. Copyright 2118-8275 [facility]Crunched. Version: 5.01. Revision Date: 08/31/2020. Education Materials HEART CATHETERIZATION/PCI (radial) Discharge Instructions DIET Drink plenty of fluids for the next 48 hours to help your kidneys flush the heart cath dye out of your system ACTIVITY For the next 48 hours: Do not deep bend the wrist Do not lift, push, or pull anything over 5 pounds Do not use the hand/arm to support your weight when rising from a chair or bed Do not drive For the next 7 days: Do not submerse your procedure site in water Do not swim, wash dishes, or take tub baths You may write, eat, type, and shower WOUND CARE Keep a Band-Aid on your procedure site for the next 3-4 days Change the Band-Aid daily or if it gets wet/soiled AFTER YOU GO HOME, CALL YOUR DOCTOR FOR: Any increase in bruising or tenderness from the procedure site Any redness, pus, or other signs of infection at the site A temperature above 100.5 Severe pain at the site DIAL 911 AND RETURN TO THE HOSPITAL FOR: Any bleeding from the procedure site. The site may be bruised or tender, but it should not be bleeding at any time. If your site begins to bleed, hold firm pressure on it and dial 911 to return to the hospital Any increase in swelling at the procedure site. An increase in swelling could mean the area is bleeding under the skin. Hold firm pressure to the site and dial 911 to return to the hospital Document Released: 05/08/2006 Document Revised: 04/24/2013 Document Reviewed: 05/09/2014 ExitCare Patient Information 2015 [employer]. This information is not intended to replace advice given to you by your health care provider. Make sure you discuss any questions you have with your health care provider. Additional Information VACCINATE! IT SAVES LIVES! Members of the community who have not yet received the COVID-19 vaccine and would like to receive it can visit one of [facility] vaccine clinics. There are many vaccine clinic locations within the [facility]. For locations and available times, please visit [email or web address] [email or web address] It is important to note that some COVID mobile vaccine clinics are held outdoors and may be canceled in rainy or stormy conditions. To learn more about pediatric vaccinations (ages 5-11), we invite you to visit the [facility] webpage. [email or web address]/p [email or web address]-Lgsiw-[email or web address]-Freq [email or web address]-[email or web address].[email or web address] To learn more about the COVID-19 vaccine, we invite you to visit the [employer] website for a list of frequently asked questions. [email or web address]/[email or web address] [email or web address] [email or web address] [employer] [facility] Patient Portal Access Instructions: Stay connected with your healthcare team and access your personal medical information anytime with the [employer] Patient Portal.If you would like a full copy of your medical records, please contact the [facility] Medical Records Department, Monday through Monday between 8a.m. and 4:30p.m. Please follow the directions below to access the portal: 1.Access the email account you provided upon registration to the hospital.2.Look for an invitation email from [facility].3.Open the email and access the invitation link: Accept Invitation to [employer] [facility].Fill in the required cote to create your account. Sign into www.[employer] with your username and password that you created in the above steps to stay up to date. You can then view a summary of results, a summary of your visits, and the ability to download your summaries to your computer or send the information securely to a physician. Remember that your healthcare information is confidential, so carefully consider who you will allow to register on the [employer] Patient Portal for access to your information. You can also access the [employer] Patient Portal on the [employer]. Simply click on Health Records under Health Data and then click on the [employer] logo. HOW TO SAFELY DISPOSE OF PRESCRIPTION MEDICATIONS Please use one of the following methods to safely dispose of your unused medications. 1.Use a drug disposal kit: the drug disposal pouch allows you to safely discard your old and unused drugs. Ask your nurse to give you one when you are discharged.2.Visit a local take-back location: Many local pharmacies and police departments have programs that collect old and unwanted prescription drugs. Call your local pharmacy or go to http://lemonade.uk.Cmed/5A7Ow0g to find one close to you.3.Make use of household items: Use cat litter or old coffee grounds to dispose medications if other options are not available. Mix your drugs with these household products, seal them in an airtight container and throw it into the garbage. Call [facility]: [phone] to be sure your drugs can be disposed of in this way. Some medicines may require a different approach.4.Never flush your medications down the toilet. IF YOU HAVE BEEN PRESCRIBED AN OPIOID FOR PAIN If you have been prescribed an opioid (such as hydrocodone, oxycodone or morphine), it is critical to understand the possible side effects and risks of opioid pain medications. Even when taken as directed, opioids can have several side effects including: Tolerance, meaning you might need to take more of a medication for the same pain relief. Nausea, vomiting and/or constipation. Sleepiness, dizziness, dry mouth, confusion, depression or itching. Physical dependence, meaning you have withdrawal symptoms when a medication is stopped, can develop within a few days. KNOW YOUR RESPONSIBILITIES It is important to know exactly how much and how often to take the opioid pain medications you are prescribed. Never take opioids in higher amounts or more often than prescribed. Do not combine opioids with alcohol or other drugs that cause drowsiness, such as benzodiazepines, also known as benzos, including diazepam and alprazolam, muscle relaxants or sleep aids. Never sell or share prescription opioids. This is illegal. Store opioids in a secure place and out of reach of others (including children, family, friends and visitors). The last page of this document has been signed and retained as a CHART COPY. Signatures Patient Education Materials 3- Heart Cath/PCI radial (02/2018)(CUSTOM) Medication Leaflets sacubitril and valsartan My discharge plan and instructions have been reviewed and explained to me and I,WAITKUNAS, KEVIN J understand my current condition and have read and understand these discharge instructions. I have received a written copy of the plan/instructions. If I have questions, I am aware that I should contact my doctor. 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 Diagnosed with acute CHF exacerbation. Underwent IV diuresis and is now euvolemic. Echocardiogram showed severely reduced EF 20%. Underwent left heart cath which showed mild coronary artery disease with LVEDP close to normal. He will be discharged home today. Started on Entresto and metoprolol. If blood pressure remains stable can be started on Jardiance and Aldactone in the outpatient setting. Allergies codeine Consults No qualifying data available. Objective Vitals and Measurements T: 36.7 C (Oral) TMIN: 36.4 C (Oral) TMAX: 37.1 C (Oral) HR: 108(Apical) RR: 16 BP: 128/80 SpO2: 94% Weight Current Weight Dosing Weight: 113.9 kg (06/25/22) Current Weight: 108.2 kg (06/26/22) General Appearance: in no acute distress. Alert. EENT: No thyroid disease. ocular movements intact Cardiac: RRR. S1 and S2. no murmurs or rubs. Lungs: Clear breath sounds. No wheeze or crackles noted. Abdomen: soft. non tender. bowel sounds audible Musculoskeletal: [strength and sensation intact Neurological: alert and oriented. Skin: warm. dry 12 point ROS reviewed and negative unless stated above. Code Status Code Status - Ordered -- 06/25/22 13:24:00 EST, Full Code, Constant Order Admission Date 06/25/2022 Discharge Date 06/27/2022 Medications New Prescription aspirin (aspirin 81 mg oral tablet, chewable)1 tab(s) by mouth every day for 60 Days. Refills: 6. atorvastatin (atorvastatin 40 mg oral tablet)1 tab(s) by mouth once a day for 60 Days. Refills: 6. furosemide (Lasix 40 mg oral tablet)1 tab(s) by mouth once a day for 60 Days. Refills: 6. metoprolol (Toprol-XL 25 mg oral tablet, extended release)1 tab(s) by mouth once a day with a meal for 60 Days. Refills: 6. sacubitril-valsartan (Entresto 24 mg-26 mg oral tablet)1 tab(s) by mouth two (2) times a day for 30 Days. Refills: 6. Unchanged albuterol (Ventolin HFA MDI (90 mcg/inh) inhalation aerosol)1 puff(s) by inhalation four (4) times a day for 30 Days. Refills: 0. QUEtiapine (SEROquel XR 200 mg oral tablet, extended release)1 tab(s) by mouth daily at bedtime. traZODone (traZODone 100 mg oral tablet)1 tab(s) by mouth daily at bedtime. traZODone (traZODone 100 mg oral tablet)2 tab(s) by mouth daily at bedtime. Follow Up Appointments No qualifying data available. Follow Up Labs/Studies Discharge Labs Discharge Outpatient Labwork - Ordered -- BMP, MAg, CHF, follow-up within: 5-7 days, Results Notify to: Dr Kandis quintanilla, 06/27/22 11:32:00 EST Discharge Studies No Follow-up Studies Discharge Diet No qualifying data available. Discharge Activity No qualifying data available. Condition on Discharge stable Readmission Risk/Palliative Score No qualifying data available. Discharge Disposition home Information Provided To patient Digitally Signed by LULU MARTINEZ MD on 06/27/2022 11:34 AM Digitally Signed by GERONIMO JOY MD [facility] 06-26-2022 Cardiology Progress note Date of Service 06/26/2022 Chief Complaint SOB Subjective Patient endorses breathing is much improved today Objective Vitals and Measurements T: 36.4 C (Oral) TMIN: 36.4 C (Oral) TMAX: 36.7 C (Oral) HR: 99(Monitored) RR: 18 BP: 132/84 SpO2: 93% HT: 177.8 cm WT: 108.2 kg BMI: 36.03 Intake and Output 7AM Yesterday to 7AM Today Intake and Output (Last 24 hours) Intake Oral Intake 577.00 Output Urine Voided 3775.00 Total Summary Total Intake 577.00 Total Output 3775.00 Fluid Balance -3198.00 Physical Exam General Appearance: in no acute distress. Alert. EENT: No thyroid disease. ocular movements intact Cardiac: RRR. S1 and S2. no murmurs or rubs. Lungs: Clear breath sounds. No wheeze or crackles noted. Abdomen: soft. non tender. bowel sounds audible Neurological: alert and oriented. Skin: warm. trace LE edema Weight Current Weight Dosing Weight: 113.9 kg (06/25/22) Current Weight: 108.2 kg (06/26/22) Medications Medications (8) Active Scheduled: (5) albuterol 0.083% Soln UD (2.5mg/3 mL) 2.5 mg 3 mL, Inhalation, QIDRT amLODIPine 5 mg tablet 5 mg 1 tab(s), Oral, qDay carvedilol 3.125 mg tablet 3.125 mg 1 tab(s), Oral, BIDM QUEtiapine 200 mg ER tablet 200 mg 1 tab(s), Oral, qHS traZODONE 100 mg Tablet 200 mg 2 tab(s), Oral, qHS Continuous: (0) PRN: (3) acetaminophen 325 mg Tablet 650 mg 2 tab(s), Oral, q8h albuterol - ipratropium 2.5 mg-0.5 mg/3 mL Inhal Amanda UD 3 mL, Inhalation, q4hRT hydralazine 20 mg/mL (1mL) vial 10 mg 0.5 mL, IV Push, q6h Lab Results 06/26 03:36 WBC: 8.1 Hgb: 11.4 L Hct: 34.2 L Platelet: 320 Neutrophil %: 63.3 Glucose Level: 107 Sodium Level: 139 Potassium Level: 2.9 L BUN: 27.0 H Creatinine Lvl (s): 1.89 H EKG No qualifying data available. Assessment/Plan Acute CHF exacerbation, LVEF unknown AVINASH on CKD Hypertension Mood disorder Asthma This 52-year-old male presents to the hospital with acute CHF exacerbation. Continue Lasix 40 mg IV twice daily. Hopefully tomorrow we will switch to oral. Await echocardiogram. Replete electrolytes. Closely monitor urine output kidney function. Patient is hypertensive on admission. started on antihypertensives. Mild troponin elevation with a flat trend. Likely myocardial injury due to acute CHF exacerbation. D-dimer elevated on admission. We will check lower extremity Dopplers. Continue home medications otherwise. Digitally Signed by LULU MARTINEZ MD on 06/26/2022 11:55 AM [facility] 06-26-2022 History and physical note Date of Service 06/25/2022 Chief Complaint SOB History of Present Illness This is a 52-year-old male history of asthma, CHF who presents to the hospital as a transfer from [place] due to CHF exacerbation. Is a patient endorses he has been feeling short of breath for the past few weeks. The past 3 to 4 days however his shortness of breath has gotten significantly worse and he is unable to breathe when he lays down flat. He also endorses breathing worsens when he exerts himself or goes up a flight of stairs. Endorses intermittent chest discomfort with ambulation as well. At [place] his BNP was 24,001 and 81. Chest x-ray showed no acute radiographic process. Patient was transferred to [place] for further management of CHF. He did receive 1 dose of IV Lasix and had good urine output. On my interview today patient feels symptomatically much improved. Not back to baseline however. He denies prior history of stress test or heart catheterization. Denies significant smoking alcohol or drug use. Does have a marijuana card. Review of Systems 12 point ROS reviewed and negative unless stated above. Physical Exam Vitals and Measurements T: 36.7 C (Oral) HR: 111(Monitored) RR: 22 BP: 160/102 SpO2: 96% HT: 177.8 cm WT: 113.9 kg BMI: 36.03 Weight Dosing Weight: 113.9 kg (06/25/22) General Appearance: in no acute distress. Alert. EENT: No thyroid disease. ocular movements intact Cardiac: RRR. S1 and S2. no murmurs or rubs. Lungs: Clear breath sounds. No wheeze or crackles noted. Abdomen: soft. non tender. bowel sounds audible Neurological: alert and oriented. Skin: warm. dry Lab Results No 36 Hour Lab Data Assessment/Plan Acute CHF exacerbation, LVEF unknown AVINASH on CKD Hypertension Mood disorder Asthma This 52-year-old male presents to the hospital with acute CHF exacerbation. We will get an echocardiogram to evaluate LVEF. Patient received 1 dose of IV Lasix and responded well. We will continue diuretics and closely monitor urine output and kidney function. Replete electrolytes as needed. Patient is hypertensive on admission. Will start antihypertensives. Mild troponin elevation with a flat trend. Likely myocardial injury due to acute CHF exacerbation. Will check D-dimer to rule out PE. We will also check urine drug screen. Burk continue home medications otherwise Problem List/Past Medical History Ongoing No qualifying data Historical No qualifying data Procedure/Surgical History No qualifying data available. Medications Home Medications (4) Active SEROquel XR 200 mg oral tablet, extended release 200 mg = 1 tab(s), Oral, qHS traZODone 100 mg oral tablet 100 mg = 1 tab(s), Oral, qHS traZODone 100 mg oral tablet 200 mg = 2 tab(s), Oral, qHS Ventolin HFA MDI (90 mcg/inh) inhalation aerosol 1 puff(s), Inhalation, QID Allergies codeine Social History Alcohol Use: Never., 09/29/2021 Substance Abuse Use: Never., 09/29/2021 Tobacco Nicotine Use: Never (less than 100 in lifetime)., 09/29/2021 Immunizations No qualifying data available. Code Status Code Status - Ordered -- 06/25/22 13:24:00 EST, Full Code, Constant Order Digitally Signed by LULU MARTINEZ MD on 06/25/2022 04:08 PM [facility] 06-26-2022 Cardiology Progress note Date of Service 06/26/2022 Chief Complaint SOB Subjective Patient endorses breathing is much improved today Objective Vitals and Measurements T: 36.4 C (Oral) TMIN: 36.4 C (Oral) TMAX: 36.7 C (Oral) HR: 99(Monitored) RR: 18 BP: 132/84 SpO2: 93% HT: 177.8 cm WT: 108.2 kg BMI: 36.03 Intake and Output 7AM Yesterday to 7AM Today Intake and Output (Last 24 hours) Intake Oral Intake 577.00 Output Urine Voided 3775.00 Total Summary Total Intake 577.00 Total Output 3775.00 Fluid Balance -3198.00 Physical Exam General Appearance: in no acute distress. Alert. EENT: No thyroid disease. ocular movements intact Cardiac: RRR. S1 and S2. no murmurs or rubs. Lungs: Clear breath sounds. No wheeze or crackles noted. Abdomen: soft. non tender. bowel sounds audible Neurological: alert and oriented. Skin: warm. trace LE edema Weight Current Weight Dosing Weight: 113.9 kg (06/25/22) Current Weight: 108.2 kg (06/26/22) Medications Medications (8) Active Scheduled: (5) albuterol 0.083% Soln UD (2.5mg/3 mL) 2.5 mg 3 mL, Inhalation, QIDRT amLODIPine 5 mg tablet 5 mg 1 tab(s), Oral, qDay carvedilol 3.125 mg tablet 3.125 mg 1 tab(s), Oral, BIDM QUEtiapine 200 mg ER tablet 200 mg 1 tab(s), Oral, qHS traZODONE 100 mg Tablet 200 mg 2 tab(s), Oral, qHS Continuous: (0) PRN: (3) acetaminophen 325 mg Tablet 650 mg 2 tab(s), Oral, q8h albuterol - ipratropium 2.5 mg-0.5 mg/3 mL Inhal Amanda UD 3 mL, Inhalation, q4hRT hydralazine 20 mg/mL (1mL) vial 10 mg 0.5 mL, IV Push, q6h Lab Results 06/26 03:36 WBC: 8.1 Hgb: 11.4 L Hct: 34.2 L Platelet: 320 Neutrophil %: 63.3 Glucose Level: 107 Sodium Level: 139 Potassium Level: 2.9 L BUN: 27.0 H Creatinine Lvl (s): 1.89 H EKG No qualifying data available. Assessment/Plan Acute CHF exacerbation, LVEF unknown AVINASH on CKD Hypertension Mood disorder Asthma This 52-year-old male presents to the hospital with acute CHF exacerbation. Continue Lasix 40 mg IV twice daily. Hopefully tomorrow we will switch to oral. Await echocardiogram. Replete electrolytes. Closely monitor urine output kidney function. Patient is hypertensive on admission. started on antihypertensives. Mild troponin elevation with a flat trend. Likely myocardial injury due to acute CHF exacerbation. D-dimer elevated on admission. We will check lower extremity Dopplers. Continue home medications otherwise. Digitally Signed by LULU MARTINEZ MD on 06/26/2022 11:55 AM [facility] 06-25-2022 Nurse Progress note Spoke with patients licensing officer J Cralos Regan regarding the patients house arrest ankle bracelet being too tight and digging into patients leg. Per Kel, ok to cut off bracelet, if patient is to go home on Monday have him follow up with me at the office, if he does not go home on Monday I will call the number at the hospital to check in . Ankle bracelet was cut and placed in bag with patients belongings. Charge nurse Trev was notified. Patient was notified of what to do as well and is in agreement. Digitally Signed by KUMAR Francis on 06/25/2022 03:58 PM [facility] 06-25-2022 Respiratory therapy Hospital Progress note Respiratory Therapy Evaluation Entered On: 06/25/2022 14:52 EST Performed On: 06/25/2022 14:50 EST by CONCHIS Stiles Respiratory Therapy Evaluation Pulmonary Status : Non-smoker Respiratory Therapy Evaluation Score : 5 Respiratory Evaluation Triage Score : 5 - (0-5) Freq: Q4RT prn RT Assessment [Frequency/Schedule] : no changes at this time. Pt takes MDI at home QID. CONCHIS Stiles - 06/25/2022 14:56 EST Chest X-Ray : Clear/not ordered CONCHIS Stiles 06/25/2022 14:52 EST Breath Sounds (RT) : Wheezes CONCHIS Stiles - 06/25/2022 14:56 EST Level of Activity : Ambulatory with assistance CONCHIS Stiles 06/25/2022 14:52 EST Surgical Status : No surgeries Respiratory Pattern (RT) : Regular RR=12-20 Cough (RT) : Strong, non-productive Mental Status : Alert, oriented CONCHIS Stiles - 06/25/2022 14:50 EST Digitally Signed by CONCHIS Stiles on 06/25/2022 02:56 PM [facility] Acute CHF exacerbation, LVEF unknown AVINASH on CKD Hypertension Mood disorder Asthma This 52-year-old male presents to the hospital with acute CHF exacerbation. We will get an echocardiogram to evaluate LVEF. Patient received 1 dose of IV Lasix and responded well. We will continue diuretics and closely monitor urine output and kidney function. Replete electrolytes as needed. Patient is hypertensive on admission. Will start antihypertensives. Mild troponin elevation with a flat trend. Likely myocardial injury due to acute CHF exacerbation. Will check D-dimer to rule out PE. We will also check urine drug screen. Burk continue home medications otherwise Addendum by MAX QUINTANILLA MD on June 26, 2022 22:55:54 EST I have personally seen, examined, and evaluated the patient on the encounter date. I have reviewed the fellow s documentation and agree with the fellow s findings and plan as documented, unless otherwise stated. Future Appointments Appointment Date:07/20/2022 10:30:00 AM Scheduled Provider: Location:[facility] Appointment Type:CV OV [facility] 02-04-2023 History and physical note Date of Service 06/25/2022 Chief Complaint SOB History of Present Illness This is a 52-year-old male history of asthma, CHF who presents to the hospital as a transfer from [place] due to CHF exacerbation. Is a patient endorses he has been feeling short of breath for the past few weeks. The past 3 to 4 days however his shortness of breath has gotten significantly worse and he is unable to breathe when he lays down flat. He also endorses breathing worsens when he exerts himself or goes up a flight of stairs. Endorses intermittent chest discomfort with ambulation as well. At [place] his BNP was 24,001 and 81. Chest x-ray showed no acute radiographic process. Patient was transferred to [place] for further management of CHF. He did receive 1 dose of IV Lasix and had good urine output. On my interview today patient feels symptomatically much improved. Not back to baseline however. He denies prior history of stress test orheart catheterization. Denies significant smoking alcohol or drug use. Does have a marijuana card. Review of Systems 12 point ROS reviewed and negative unless stated above. Physical Exam Vitals and Measurements T: 36.7 C (Oral) HR: 111(Monitored) RR: 22 BP: 160/102 SpO2: 96% HT: 177.8 cm WT: 113.9 kg BMI: 36.03 Weight Dosing Weight: 113.9 kg (06/25/22) General Appearance: in no acute distress. Alert. EENT: No thyroid disease. ocular movements intact Cardiac: RRR. S1 and S2. no murmurs or rubs. Lungs: Clear breath sounds. No wheeze or crackles noted. Abdomen: soft. non tender. bowel sounds audible Neurological: alert and oriented. Skin: warm. dry Lab Results No 36 Hour Lab Data Assessment/Plan Acute CHF exacerbation, LVEF unknown AVINASH on CKD Hypertension Mood disorder Asthma This 52-year-old male presents to the hospital with acute CHF exacerbation. We will get an echocardiogram to evaluate LVEF. Patient received 1 dose of IV Lasix and responded well. We will continue diuretics and closely monitor urine output and kidney function. Replete electrolytes as needed. Patient is hypertensive on admission. Will start antihypertensives. Mild troponin elevation with a flat trend. Likely myocardial injury due to acute CHF exacerbation. Will check D-dimer to rule out PE. We will also check urine drug screen. Burk continue home medications otherwise Problem List/Past Medical History Ongoing No qualifying data Historical No qualifying data Procedure/Surgical History No qualifying data available. Medications Home Medications (4) Active SEROquel XR 200 mg oral tablet, extended release 200 mg = 1 tab(s), Oral, qHS traZODone 100 mg oral tablet 100 mg = 1 tab(s), Oral, qHS traZODone 100 mg oral tablet 200 mg = 2 tab(s), Oral, qHS Ventolin HFA MDI (90 mcg/inh) inhalation aerosol 1 puff(s), Inhalation, QID Allergies codeine Social History Alcohol Use: Never., 09/29/2021 Substance Abuse Use: Never., 09/29/2021 Tobacco Nicotine Use: Never (less than 100 in lifetime)., 09/29/2021 Immunizations No qualifying data available. Code Status Code Status - Ordered -- 06/25/22 13:24:00 EST, Full Code, Constant Order Digitally Signed by LULU MARTINEZ MD on 06/25/2022 04:08 PM [id number] ORIGINAL EXAMINATION: ONE XRAY VIEW OF THE CHEST 06/25/2022 5:55 am COMPARISON: Chest radiograph 09/29/2021 HISTORY: ORDERING SYSTEM PROVIDED HISTORY: Reason for Exam: chest pain FINDINGS: Heart size is normal for projection. No focal consolidation, vascular congestion, pleural effusion, or pneumothorax. Thoracic spine degenerative changes. IMPRESSION: No acute radiographic process. I have personally reviewed the images of this examination and agree with the resident's findings and interpretation. Interpreted by: Thuan Pan MD Preliminary Report By: Caty Tinoco Electronically signed By Thuan Pan MD Dictated Date: 06/25/2022 5:56:57 AM Prelim Date: 06/25/2022 5:57:50 AM Sign Date: 06/25/2022 6:34:59 AM [facility]ing [facility] Note ORIGINAL EXAMINATION: ONE XRAY VIEW OF THE CHEST 06/25/2022 5:55 am COMPARISON: Chest radiograph 09/29/2021 HISTORY: ORDERING SYSTEM PROVIDED HISTORY: Reason for Exam: chest pain FINDINGS: Heart size is normal for projection. No focal consolidation, vascular congestion, pleural effusion, or pneumothorax. Thoracic spine degenerative changes. IMPRESSION: No acute radiographic process. I have personally reviewed the images of this examination and agree with the resident's findings and interpretation. Interpreted by: Thuan Pan MD Preliminary Report By: Caty Tinoco Electronically signed By Thuan Pan MD Dictated Date: 06/25/2022 5:56:57 AM Prelim Date: 06/25/2022 5:57:50 AM Sign Date: 06/25/2022 6:34:59 AM Ordering Provider: HERON [facility]05-11-2022 Hospital Discharge instructions Patient Education 09/29/2021 06:41:12 Coping with Heart Failure Coping with Heart Failure It s normal to feel sad or down at times when you re living with heart failure. Some medicines can also affect your mood. Following your treatment plan may seem difficult at times. If you feel overwhelmed, just focus on one day at a time. Don t be afraid to ask others for help when you need it. Ways to feel better Try not to withdraw from family and friends, even if you are finding it hard to talk to them. They can still be a good source of support. To feel better, you can also: Spend time doing things you enjoy. This may include participating in a favorite hobby, meditating, praying, or spending time with people you care about. Find activities that make you happy and make those a priority. Share what you learn about heart failure with the people in your life. Invite family members along when you visit your healthcare provider. This will help you feel supported as well as help you discuss the care plan you've agreed upon with your doctor. Think about joining a support group for people with heart failure. It may be easier to talk to people who know firsthand what you re going through. They can offer advice and share stories. You may want to ask loved ones to join you for a meeting. Asking for help Having heart failure doesn t mean that you have to feel bad all the time. Consider talking to your healthcare provider or a therapist if: You feel worthless or helpless, or are thinking about suicide. These are warning signs of depression. Treatment can help you feel better. When depression is under control, your overall health may also improve. You feel anxious about what will happen to your loved ones if your health gets worse. Taking care of legal arrangements, such as a living will and durable power of traffic law attorney, can help you feel more secure about the future. Social support helps alleviate stress and helps your stick with your healthy lifestyle changes. Without social support, you may end up back in the hospital. [phone] [employer]. [address] [place] [address]. All rights reserved. This information is not intended as a substitute for professional medical care. Always follow [facility] professional's instructions. Follow Up Care 09/29/2021 04:55:42 With:RAGINI FERNANDEZ MD Address: [address] [place] [address]- When:2-4 days [facility] 04-28-2022 NotePatient Outreach ([facility]) DEISYKEVIN Velazco ([id number]) 1970 Date Time Provider Department 09/16/21 DENITA RAWLS During your visit today, we recorded the following information about you: Denita Rawls RN 09/16/2021 12:02 PM Signed [facility] Enrollment Provider Action/FYI: h/o COPD Unable to reach patient, left VM Patient referred by: [facility] Sarah Contact made with patient: No - 3rd attempt to reach patient, left another message: Hi my name is Denita Rawls RN and I am calling from the [facility] on behalf of your PCP, Ragini Fernandez MD. We are excited to share with you a new program to help you manage your health. Please call me back at [phone]. I hope you can take the time to speak with me. (Keep encounter open for additional two business days in case patient calls back. Close encounter if no response by end of second business day) Closing: Could not reach the patient after x3 attempted outreaches. END OUTREACH Allergies As of Date: 09/16/2021 Noted Allergy Reaction CODEINE 03/11/2015 9 - Itching LIDOCAINE 05/12/2005 11 - Vomiting Date Reviewed: 02/17/2021 Reviewed by: Bhavya Torres Ma - Fully Assessed Reason for Visit: Community Monitoring Outreach [Other] Cmt: [facility] Enrollment Outreach Prescriptions as of 09/16/2021 - carvedilol (COREG) 25 mg tablet Take 1 tablet by mouth twice daily with meals. - lisinopril (ZESTRIL, PRINIVIL) 20 mg tablet Take 1 tablet by mouth twice daily. - amLODIPine (NORVASC) 10 mg tablet Take 1 tablet by mouth once daily. - albuterol HFA (VENTOLIN HFA) 90 mcg/actuation inhaler inhale 2 puffs as directed every 6 hours if needed for wheezing or shortness of breath - budesonide-formoterol (SYMBICORT) 160-4.5 mcg/actuation inhaler TWICE A DAY - divalproex ER (DEPAKOTE ER) 500 mg 24 hr tablet Take 500 mg by mouth once daily. - QUEtiapine (SEROQUEL) 50 mg tablet Take 50 mg by mouth twice daily. - OXcarbazepine (TRILEPTAL) 300 mg tablet Take 300 mg by mouth twice daily. - fluticasone (FLONASE) 50 mcg/actuation nasal spray Use 2 Sprays in each nostril once daily. Rinse mouth after use. - traZODone (DESYREL) 100 mg tablet take 1/2-3 tablets by mouth at bedtime if needed for insomnia Problem List As Of Date 09/16/2021 Noted Resolved OTHER PSORIASIS [L40.8] 05/12/2005 Asthma [J45.909] 05/12/2005 Tooth, impacted [K01.1] 05/20/2015 Bipolar Affective Disorder [F31.9] Hypertension [I10] 07/03/2009 Lumbar back pain with radiculopathy affecting r*04/10/2015 Chronic kidney disease, stage III (moderate) (H*05/20/2015 Class 3 severe obesity with body mass index (BM*10/17/2017 Chronic systolic CHF (congestive heart failure)*11/03/2017 08/13/2020 Medical marijuana use [Z79.899] 02/17/2021 Encounter Status:Closed by DENITA RAWLS on 09/16/21[facility] 09-16-2021 NoteHNO ID: [id number] Author: Denita Rawls RN Service: ? Author Type: Registered Nurse Type: Progress Notes Filed: 09/16/2021 12:02 PM Note Text: [facility] Enrollment Provider Action/FYI: h/o COPD Unable to reach patient, left VM Patient referred by: C Sarah Contact made with patient: No - 3rd attempt to reach patient, left another message: Hi my name is Denita Rawls RN and I am calling from the [facility] on behalf of your PCP, Ragini Fernandez MD. We are excited to share with you a new program to help you manage your health. Please call me back at [phone]. I hope you can take the time to speak with me. (Keep encounter open for additional two business days in case patient calls back. Close encounter if no response by end of second business day) Closing: Could not reach the patient after x3 attempted outreaches. [facility] History of Present illness Narrative* Denita Rawls RN - 09/16/2021 9:08 AM EDT [facility] Enrollment Provider Action/FYI: h/o COPD Unable to reach patient, left VM Patient referred by: [facility] Sarah Contact made with patient: No - 3rd attempt to reach patient, left another message: Hi my name is Denita Rawls RN and I am calling from the [facility] on behalf of your PCP, Ragini Fernandez MD. We are excited to share with you a new program to help you manage your health. Please call meback at [phone]. I hope you can take the time to speak with me. (Keep encounter open for additional two business days in case patient calls back. Close encounter if no response by end of second business day) Closing: Could not reach the patient after x3 attempted outreaches. END OUTREACH [facility] History of Past illness Narrative* Problem Noted Date Resolved Date Chronic systolic CHF (congestive heart failure) 11/03/2017 08/13/2020 Tooth, impacted 05/20/2015 documented as of this encounter (statuses as of 09/16/2021) [facility] History of Past illness Narrative* Problem Noted Date Resolved Date Chronic systolic CHF (congestive heart failure) 11/03/2017 08/13/2020 Tooth, impacted 05/20/2015 documented as of this encounter (statuses as of 07/14/2022) [facility] History of Past illness Narrative* Problem Noted Date Resolved Date Chronic systolic CHF (congestive heart failure) 11/03/2017 08/13/2020 Tooth, impacted 05/20/2015 documented as of this encounter (statuses as of 08/04/2022) [facility] note No data available for this section [facility] Hospital Discharge instructions No data available for this section [facility] Note* HERON PETERSON MD: SIGN, VERIFY Event Display: EKG [ED AO] - CV Authored Date: [id number] [facility] Note* ALBERTA MCKEON MD: SIGN, VERIFY Event Display: VL Venous US/Doppler Both Legs(for DVT) [facility] Progress note No data available for this section [facility] Summary Purpose Family History No Family History Records FoundNo Family History Records Found Advance Directives No Advanced Directives Records FoundNo Advanced Directives Records Found Additional Source Comments Source Comments (unrecognize d section and content) In the event this informatio n is protected by the Federal Confidentiality of Alcohol and Drug Abuse Patient Records regulations: The Federal rules restrict any use of the information to criminally investigate or prosecute any alcohol or drug abuse patient.[facility] Hospital[facility] the event this information is protected by the Federal Confidentiality of Alcohol and Drug Abuse Patient Records regulations: The Federal rules restrict any use of the information to criminally investigate or prosecute any alcohol or drug abuse patient.[facility] Hospital[facility] the event this information is protected by the Federal Confidentiality of Alcohol and Drug Abuse Patient Records regulations: The Federal rules restrict any use of the information to criminally investigate or prosecute any alcohol or drug abuse patient.[facility] Reason for Visit (unrecogniz ed section and content) Reason Comments Social Work Services Reason Comments Forms/letter Care Teams (unrecognized sec tion and content) Stna Relationship Specialty Start Date End Date Ragini Fernandez MD [address] [place] [address] PCP - General Family Medicine 05/20/15 Stna Relationship Specialty Start [place] [address] [place], [place] [id number] PCP - General Family Medicine 05/20/15 Care Team (unrecognized sect ion and content) Care Team Personnel Name: RAGINI FERNANDEZ MD Member Role: Primary Care Physician Address: Address: [address] [place], [place] [id number]- Name: HERON PETERSON MD Position: ED Physician Address: Address: [facility] [address] [place] [address]- Care Team Personnel Name: RAGINI FERNANDEZ MD Member Role: Primary Care Physician Address: Address: [address] [place] [address]- (unrecognized sect ion and content) No Status Records FoundNo Status Records Found INFORMATION SOURCE (unrecogn ized section and content) DATE CREATED AUTHOR AUTHOR'S HOLLY ATION 07/21/2022 [facility] oundation (ID) FOR RECORDS PERTAINING TO PATIENTS WHO ARE OR HAVE BEEN ENROLLED IN A CHEMICAL DEPENDENCY/SUBSTANCEABUSE PROGRAM, SOME INFORMATION MAY BE OMITTED. This clinical summary was aggregated from multiple sources. Caution should be exercised in using it in the provision of clinical care. This summary normalizes information from multiple sources, and as a consequence, information in this document may materially change the coding, format and clinical context of patient data. In addition, data may be omitted in some cases. CLINICAL DECISIONS SHOULD BE BASED ON THE PRIMARY CLINICAL RECORDS. [employer] [facility]. provides no warranty or guarantee of the accuracy or completeness of information in this document.
[2023-06-15] MEDS: amLODIPine 5 MG Tablet PO (15:51)
[2023-06-15] MEDS: hydroCHLOROthiazide 25 MG Tablet PO (15:52)
[2023-06-15] MEDS: Nitroglycerin Oint 1 INCH PACKET TD (15:53)
[2023-06-15] MEDS: Furosemide 40 MG/4 ML Vial IV (15:58)
[2023-06-15 16:12] LABS: Reflex Troponin-HS? (from REC) Y
--- NOTE | 2023-06-15 16:55 | ECHOCS_ITS ---
Reason For Study: Chest Pain Procedure This was a 2D Doppler, Color Flow transthoracic echocardiogram. Contrast injection was performed. Exam performed portable in patient room. Left Ventricle Normal LV size. The estimated ejection fraction is 35 %. Stage 2 diastolic dysfunction. Moderate to severe hypokinesis of the lateral wall. Mild to moderate hypokinesis of the other alves. Right Ventricle Normal RV size. Normal systolic function. Atria The left atrium is moderately enlarged. The right atrium is mildly enlarged. No doppler evidence for ASD. Mitral Valve There is no mitral valve stenosis. Trivial mitral valve insufficiency. Tricuspid Valve There is no tricuspid stenosis. Trivial tricuspid valve insufficiency. Pulmonary artery systolic pressure is 40 mmHg. Aortic Valve Trisinus/trileaflet aortic valve. There is no aortic stenosis. Mild (1+) aortic valve insufficiency. Pulmonic Valve There is no pulmonic valvular stenosis. No pulmonic valve insufficiency. Great Vessels Normal aortic root. Pericardium/Pleural No pericardial effusion. Medication Diluted definity 2ml given slow IV push to enhance endocardial definition. MMode/2D Measurements & Calculations LVIDd: 6.9 cm IVSd: 1.2 cm Ao root diam: 4.0 cm LVIDs: 5.9 cm LVPWd: 1.2 cm LA dimension: 5.9 cm RVDd: 4.6 cm FS: 14.6 % LAV(MOD-bp): 150.8 ml LVAd ap4: 62.4 cm2 LVAd ap2: 49.2 cm2 LAV(MOD-bp) Indexed: 68.0 ml/m2 LVLd ap4: 11.5 cm LVLd ap2: 10.4 cm LAV(MOD-sp2): 142.6 ml EDV(MOD-sp4): 275.8 ml EDV(MOD-sp2): 196.3 ml LAV(MOD-sp4): 141.5 ml EDV(sp4-el): 286.3 ml EDV(sp2-el): 198.8 ml LVAs ap4: 51.2 cm2 LVAs ap2: 42.0 cm2 LVLs ap4: 10.3 cm LVLs ap2: 9.8 cm ESV(MOD-sp4): 212.7 ml ESV(MOD-sp2): 150.3 ml ESV(sp4-el): 216.8 ml ESV(sp2-el): 152.9 ml EF(MOD-sp4): 22.9 % EF(MOD-sp2): 23.5 % EF(sp4-el): 24.3 % SV(MOD-sp4): 63.1 ml SV(MOD-sp2): 46.1 ml SV(sp4-el): 69.5 ml LA A4 area: 34.3 cm2 RA A4 area: 27.9 cm2 TAPSE: 2.0 cm Time Measurements MV dec time: 0.17 sec Doppler Measurements & Calculations MV E max ian: 82.9 cm/sec Lat Peak E' Ian: 6.4 cm/sec Med Peak E' Ian: 6.6 cm/sec MV A max ian: 47.5 cm/sec E/E' lat: 12.9 E/E' med: 12.5 MV E/A: 1.7 MV V2 max: 86.2 cm/sec MV P1/2t max ian: 86.7 cm/sec Ao V2 max: 132.3 cm/sec MV max P.0 mmHg MV P1/2t: 57.4 msec Ao max P.0 mmHg MV V2 mean: 49.9 cm/sec Ao V2 mean: 91.5 cm/sec MV mean P.2 mmHg MV dec slope: 442.3 cm/sec2 Ao mean P.9 mmHg MV V2 VTI: 26.2 cm MVA(P1/2t): 3.8 cm2 Ao V2 VTI: 22.5 cm AV (velocity ratio): 0.66 AI max ian: 368.2 cm/sec LV V1 max: 80.0 cm/sec MR max ian: 446.3 cm/sec AI max P.2 mmHg LV V1 max P.6 mmHg MR max P.7 mmHg LV V1 mean P.4 mmHg MR mean ian: 377.8 cm/sec AI dec slope: 179.5 cm/sec2 LV V1 mean: 55.2 cm/sec MR mean P.5 mmHg AI P1/2t: 601.0 msec LV V1 VTI: 14.8 cm MR VTI: 159.2 cm PA V2 max: 94.0 cm/sec TR max ian: 289.2 cm/sec TR max P.5 mmHg ECHO/Echo Complete W/ Contrast Interpretation Summary The estimated ejection fraction is 35 %. Wall motion abnormalities as described. Stage 2 diastolic dysfunction. The left atrium is moderately enlarged. The right atrium is mildly enlarged. Trivial mitral valve insufficiency. Mild (1+) aortic valve insufficiency. Ordering Physician: Kev Waters Referring Physician: Venkat Catalan Performed By: Bright Pena RCS
[2023-06-15 17:00] LABS: Troponin-I HS 266 pg/mL (3.0-78.0)
--- NOTE | 2023-06-15 17:51 | PCM.CONS.C ---
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 The patient had no significant coronary disease on the left heart catheterization at that time. He recovered symptomatically on medical therapy. However the patient is unable to obtain his medications. He now presents with a hypertensive urgency and congestive heart failure. He is unable to lie flat he has not slept well in several weeks he describes significant orthopnea and PND. He only has trace to 1+ lower extremity edema. But when he does take his Lasix he feels some better for short period of time. Patient reports that he lost all access to medical care and has been unable to afford any medicines. The patient gives a history of bipolar disorder. He has recently obtained coverage through Medicaid. He has gotten some wraparound service access but does not apparently have access to medications. The patient will be aggressively diuresed. We will alter his medical regiment to something that would be generic and more affordable. The Entresto will be discontinued as well as the Toprol. Will replace this with a combination of generic carvedilol generic losartan and spironolactone. He will be continued on his Lasix at the doses of these medications will be titrated to his renal function and response. The patient will be continued on supplemental oxygen. Ideally the patient should be on an SGLT2 inhibitor but he is will not be able to afford that most likely. We can start this as an outpatient arena if we can obtain coverage for him. (2) Hypertensive urgency: PLAN: The patient's blood pressure should be able to be controlled with a combination of the Coreg and losartan as well as spironolactone. If necessary additional generic medical therapy will be instituted. (3) Hypertension: QUALIFIERS: Hypertension type: primary hypertension Qualified Code(s): I10 - Essential (primary) hypertension PLAN: See #2 above. (4) Medical non-compliance: PLAN: The patient has been unable to comply with his medical regiment due to the expense of the Entresto. He does not have any medical coverage and therefore we will need to switch him to generic meds that he can obtain through Medicaid. We should be able to get him the ability to obtain the current Coreg losartan and spironolactone. Care management will be consulted in the morning. PLAN: Plan 1. The patient has not urinated in the last next 2 hours he will receive an additional IV Lasix 80 mg as a one-time bolus. 2. We will institute the patient on Coreg 25 mg twice daily starting this evening. 3. Losartan will be instituted 50 mg twice daily. 4. Spironolactone 25 mg daily will be instituted tomorrow morning. 5. Basic metabolic panel to monitor potassium and renal function will be serially drawn over the next 48 hours. He will need to first be further monitored within a week of discharge. 6. The patient can follow-up in our office after discharge within 7 to 10 days. HPI Consult Data Date of Consult: 06/15/23 HPI Narrative Reason for Consultation: CHF exaccerbation with positive troponins HPI Narrative: KEVIN PHILLIP, is a 53 M who presents with chest tightness and shortness of breath. He has had episodic chest tightness and his dyspnea on exertion and now is progressed to the point he is having significant PND and orthopnea. The patient has been unable to sleep he is intermittently been taking his heart failure medications. The patient cannot afford the Entresto and he is intermittently taking his beta-maegan and diuretic. 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 The patient had been admitted at [facility] back in early springJuly 2022. He was in florid heart failure with bilateral lower extremity edema profound PND and orthopnea and essentially was functional class III-IV NYHA classification for heart failure. The patient underwent left heart catheterization which revealed minimal disease in the LAD diagonal normal circumflex normal right coronary arteries. His LV was grossly dilated with an ejection fraction of 20%. He was diagnosed with a nonischemic dilated cardiomyopathy. The patient was treated with Entresto Toprol Lasix statin therapy and a baby aspirin. He did fairly well on his medical regiment but was having difficulty paying for it. The patient lost all access to medical therapy in March and has been rationing his medications since then. When he does take them he said he would feel better. The patient reports he is unable to walk 30 feet without getting profoundly short of breath. He has not been able to lace sleeping down for several weeks. The patient now presents with severe hypertension presumed hypertensive emergency related to his ongoing heart failure he has has renal sufficiency with a creatinine clearance of 35. Troponin was elevated to 66 this is probably a reflection of his severe hypertension. His chest x-ray showed mild cardiomegaly. An echocardiogram is pending at this time. [facility] Medical History (Updated 06/15/23 @ 18:[address] Paresh Conley MD) Anxiety Asthma Congestive heart failure (CHF) Depression Hypertension Kidney disease Myocardial infarct Non-smoker Rheumatoid arthritis Home Medications albuterol sulfate 90 mcg/actuation aerosol inhaler 2 puff inhalation Q6H PRN PRN Sob &/Or Wheezing ##1 10/31/17 [Rx Last Taken Unknown] amlodipine 5 mg tablet (Norvasc) 5 mg PO DAILY 30 days #30 tabs 10/31/17 [Rx Last Taken Unknown] budesonide-formoterol HFA 160 mcg-4.5 mcg/actuation aerosol inhaler 10.2 gm IH BID 30 days 10/31/17 [Rx Last Taken Unknown] hydrochlorothiazide 25 mg tablet 25 mg PO DAILY 30 days ##30 10/31/17 [Rx Last Taken Unknown] prednisone 10 mg tablet 10 mg PO UD #30 tabs 10/31/17 [Rx Last Taken Unknown] atorvastatin 40 mg tablet 40 mg PO QHS 06/15/23 [History Last Taken Unknown] furosemide 40 mg tablet 40 mg PO DAILY 06/15/23 [History Last Taken Unknown] metoprolol succinate 25 mg tablet,extended release 24 hr 25 mg PO DAILY 06/15/23 [History Last Taken Unknown] trazodone 150 mg tablet 150 mg PO QHS 06/15/23 [History Last Taken Unknown] Allergy/AdvReac Type Severity Reaction Status Date / Time hydrocodone bitartrate Allergy Itching Verified 06/15/23 14:11 [From Vicodin] no significant family history Surgical History History of cholecystectomy Social History Smoking Status: Never smoker ROS Constitutional Constitutional: Reports as per HPI and fatigue Eyes Eyes: Reports systems reviewed and no addt'l complaints, except as documented ENT HEENT: Reports systems reviewed and no addt'l complaints, except as documented Cardiovascular Cardiovascular: Reports systems reviewed and no addt'l complaints, except as documented and as per HPI Respiratory/Chest Respiratory/Chest: Reports as per HPI Gastrointestinal Gastrointestinal: Reports systems reviewed and no addt'l complaints, except as documented; Denies abdominal pain Genitourinary Genitourinary: Reports systems reviewed and no addt'l complaints, except as documented Musculoskeletal Musculoskeletal: Reports systems reviewed and no addt'l complaints, except as documented Integumentary Integumentary: Reports systems reviewed and no addt'l complaints, except as documented Neurologic Neurologic: Reports systems reviewed and no addt'l complaints, except as documented Psychiatric Psychiatric: Reports other Details: History of bipolar disorder Hematologic/Lymphatic Hematologic/Lymphatic: Reports systems reviewed and no addt'l complaints, except as documented Allergic/Immunologic Allergic/Immunologic: Reports systems reviewed and no addt'l complaints, except as documented Physical Exam Const oriented x3 HEENT normocephalic Eyes EOMs intact bilaterally Neck no JVD and no carotid bruits Neck Narrative: No JVD at 90 degrees. Chest inspection of chest normal Resp Effort and Inspection: uses accessory muscles Auscultation: crackles bilateral base and rales bilateral base; Negative for rhonchi or wheezes Cardio regular rate, regular rhythm, S1 normal heart sound, S2 normal heart sound, no murmurs and no rub Heart Sounds: gallop S3 gallop GI normal to inspection, nondistended, normoactive bowel sounds, non-tender and no bruits Extremity General Extremity: edema bilateral lower extremity Details: mild Skin no rashes or lesions noted Psych Psych Narrative: Patient has pressured speech. Risk Stratification Risk Stratification Applicable: No Charges/Coding Visit Charges Inpatient E&M: 77244 Init Hosp L3 Objective Data Vital Signs: Vital Signs Temp Pulse Resp BP Pulse Ox O2 Del Method 96.5 F L 96 29 H 160/122 H 98 Nasal Cannula 06/15/23 13:59 06/15/23 16:30 06/15/23 16:30 06/15/23 16:30 06/15/23 16:30 06/15/23 16:30 Oxygen Delivery Method Nasal Cannula Weight: 236 lb 5.369 oz Body Mass Index (BMI) 34.9 Lab / Micro Data 06/15/23 14:09 06/15/23 14:09 Labs: Laboratory Results - last 24 hr 06/15/23 14:09: WBC 8.6, RBC 4.65, Hgb 12.7 L, Hct 38.9 L, MCV 83.7, MCH 27.3, MCHC 32.6, RDW Std Deviation 45.3 H, RDW Coeff of Claude 15.1 H, Plt Count 247, MPV 10.4, Immature Gran % (Auto) 0.300, Neut % (Auto) 69.8, Lymph % (Auto) 21.6, [place] % (Auto) 5.7, Eos % (Auto) 2.3, Baso % (Auto) 0.3, Absolute Neuts (auto) 6.0, Absolute Lymphs (auto) 1.86, Nucleated RBC % 0, Sodium 137, Potassium 3.8, Chloride 108 H, Carbon Dioxide 19.0 L, Anion Gap 10, BUN 29 H, Creatinine 2.12 H, Est GFR (MDRD) Af Amer 42 L, Est GFR (MDRD) Non-Af 35 L, BUN/Creatinine Ratio 13.7, Glucose 134 H, Calcium 9.4, Troponin I High Sens 299 H* 06/15/23 16:20: Troponin I High Sens 266 H* Rhythm Strip Rhythm Strip: Sinus Tach Rate: 107 Ectopy: None Cardiology Labs/Tests 06/15/23 14:09: WBC 8.6, RBC 4.65, Hgb 12.7 L, Hct 38.9 L, MCV 83.7, MCH 27.3, MCHC 32.6, Plt Count 247, MPV 10.4, Immature Gran % (Auto) 0.300, Neut % (Auto) 69.8, Lymph % (Auto) 21.6, [place] % (Auto) 5.7, Eos % (Auto) 2.3, Baso % (Auto) 0.3, Absolute Neuts (auto) 6.0, Nucleated RBC % 0, Sodium 137, Potassium 3.8, Chloride 108 H, Carbon Dioxide 19.0 L, Anion Gap 10, BUN 29 H, Creatinine 2.12 H, Est GFR (MDRD) Af Amer 42 L, Est GFR (MDRD) Non-Af 35 L, BUN/Creatinine Ratio 13.7, Glucose 134 H, Calcium 9.4 Rhythm: EKG: ECHO: Stress Test: Cardiac Cath: PCI: CT Surgery: Holter monitor: EPS: PPM: CXR: Chest CT Scan: Radiography Diagnostic Testing: Radiology Impression Chest X-Ray 06/15/23 15:00 IMPRESSION: Mild cardiomegaly. The lungs are clear. Electronically Signed: Jose Richards MD at 15:39 EST , EKG Initial EKG: Interpretation: EKG shows normal sinus rhythm with a normal axis no significant ST or T wave changes.
[2023-06-15] MEDS: Nitroglycerin (INPATIENT USE) 0.4 MG TAB.SUBL 0.400000000000000022 MG SL (20:17)
[2023-06-15 21:06] LABS: Troponin-I HS 250 pg/mL (3.0-78.0)
[2023-06-15] MEDS: Carvedilol 25 MG Tablet PO (21:27)
[2023-06-15] MEDS: Heparin Injection (Vial) 5,000 UNIT/ML VIAL 5000 UNIT SC (21:27)
[2023-06-15] MEDS: Atorvastatin Calcium 40 MG Tablet PO (21:27)
[2023-06-15] MEDS: traZODone 50 MG Tablet 150 MG PO (21:27)
[2023-06-15] MEDS: Losartan Potassium 25 MG Tablet PO (21:28)
[2023-06-15] MEDS: Ipratropium/Albuterol Sulfate 3 ML AMPUL.NEB INHALATION (21:56)
[2023-06-15 22:10] LABS: BNP,B-Type NATRIURETIC PEPTIDE 1830.9 pg/mL (0-100)
[2023-06-15] MEDS: LORazepam 2 MG/ML Syringe 0.5 MG IV (22:39)
[2023-06-16 00:37] LABS: Magnesium 2.4 mg/dL (1.6-2.6)
[2023-06-16 04:14] VITALS: BP 118/79; PULSE 78; RESP 18; TEMP 36.1; O2SAT 93
[2023-06-16 06:00] VITALS: BMI 33.5
[2023-06-16 07:40] VITALS: O2SAT 96
[2023-06-16 07:59] LABS: Hematocrit 36.8 % (40-54); Hemoglobin 12.1 g/dL (13.0-16.5); Mean Corp Hgb Conc 32.9 g/dL (32-36); Mean Corpuscular Hgb 27.3 pg (27.0-32.0); Mean Corpuscular Volume 82.9 fL (80-94); Platelet Count 223 K/mm3 (150-450); RBC Distribution Width CV 14.6 % (11.6-14.6); RBC Distribution Width SD 43.6 fl (35.1-43.9); Red Blood Count 4.44 M/mm3 (4.6-6.2); White Blood Count 8.3 K/mm3 (4.4-11.0)
[2023-06-16 08:15] LABS: Anion Gap 6 (5-15); BUN 30 mg/dL (7-18); BUN/Creat Ratio 14.7 RATIO (10-20); Calcium,Total 8.7 mg/dL (8.5-10.1); Chloride 106 mmol/L (98-107); Creatinine, Serum 2.04 mg/dL (0.70-1.30); EST Glomerular Filtration Rate 37 mL/min (>60); Est Glom Filt Rate - Afr Amer 44 mL/min (>60); Estimated Creatinine Clearance 50.12 ml/min; Glucose 118 mg/dL (74-106); Potassium 3.4 mmol/L (3.5-5.1); Sodium Level 137 mmol/L (136-145)
[2023-06-16 08:42] VITALS: BP 143/96; PULSE 83; RESP 14; TEMP 37; O2SAT 90
[2023-06-16] MEDS: Aspirin 81 MG TAB.CHEW PO (08:44)
[2023-06-16] MEDS: Furosemide 40 MG Tablet PO (08:44)
[2023-06-16] MEDS: Losartan Potassium 25 MG Tablet PO ×2 (08:45→21:58)
[2023-06-16] MEDS: Spironolactone 25 MG Tablet PO (08:45)
[2023-06-16] MEDS: Carvedilol 25 MG Tablet PO ×2 (08:45→21:58)
[2023-06-16] MEDS: Heparin Injection (Vial) 5,000 UNIT/ML VIAL 5000 UNIT SC ×2 (08:50→22:01)
--- NOTE | 2023-06-16 09:25 | PN.HOSP_ITS ---
Reason for Visit Reason for Visit: Diagnoses Essential (primary) hypertension (06/15/23) Hypertensive urgency (06/15/23) Non-ST elevation (NSTEMI) myocardial infarction (06/15/23) Acute on chronic systolic (congestive) heart failure (06/15/23) Patient's noncompliance with other medical treatment and regimen due to unspecif ied reason (06/15/23) Objective Data Objective Data Vital Signs: Vital Signs Temp Pulse Resp BP Pulse Ox O2 Del Method 98.6 F 83 14 143/96 H 90 Room Air 06/16/23 08:42 06/16/23 08:42 06/16/23 08:42 06/16/23 08:42 06/16/23 08:42 06/16/23 08:42 Oxygen Delivery Method Room Air Weight: 103.1 kg Body Mass Index (BMI) 33.5 Intake & Output: Intake and Output for Last 24 Hours 06/14/23 06/15/23 06/16/23 23:59 23:59 23:59 Intake Total 400 / 400 Output Total 925 / 925 900 / 900 Balance -525 / -525 -900 / -900 Lab / Micro Data 06/16/23 07:51 06/16/23 07:51 Labs: Laboratory Results - last 24 hr 06/15/23 14:09: WBC 8.6, RBC 4.65, Hgb 12.7 L, Hct 38.9 L, MCV 83.7, MCH 27.3, MCHC 32.6, RDW Std Deviation 45.3 H, RDW Coeff of Claude 15.1 H, Plt Count 247, MPV 10.4, Immature Gran % (Auto) 0.300, Neut % (Auto) 69.8, Lymph % (Auto) 21.6, [place] % (Auto) 5.7, Eos % (Auto) 2.3, Baso % (Auto) 0.3, Absolute Neuts (auto) 6.0, Absolute Lymphs (auto) 1.86, Nucleated RBC % 0, Sodium 137, Potassium 3.8, Chloride 108 H, Carbon Dioxide 19.0 L, Anion Gap 10, BUN 29 H, Creatinine 2.12 H , Est GFR (MDRD) Af Amer 42 L, Est GFR (MDRD) Non-Af 35 L, BUN/Creatinine Ratio 13.7, Glucose 134 H, Calcium 9.4, Troponin I High Sens 299 H*, B-Natriuretic Peptide 1830.9 H 06/15/23 16:20: Troponin I High Sens 266 H* 06/15/23 20:15: Magnesium 2.4, Troponin I High Sens 250 H* 06/16/23 07:51: WBC 8.3, RBC 4.44 L, Hgb 12.1 L, Hct 36.8 L, MCV 82.9, MCH 27.3, MCHC 32.9, RDW Std Deviation 43.6, RDW Coeff of Claude 14.6, Plt Count 223, MPV 10.0, Sodium 137, Potassium 3.4 L, Chloride 106, Carbon Dioxide 25.0, Anion Gap 6, BUN 30 H, Creatinine 2.04 H, Estim Creat Clear Calc 50.12, Est GFR (MDRD) Af Amer 44 L, Est GFR (MDRD) Non-Af 37 L, BUN/Creatinine Ratio 14.7, Glucose 118 H, Calcium 8.7 Radiography Diagnostic Testing: Radiology Impression Chest X-Ray 06/15/23 15:00 IMPRESSION: Mild cardiomegaly. The lungs are clear. Electronically Signed: Jose Richards MD at 15:39 EST , Rhythm Strip Rhythm Strip: Sinus Tach Rate: 107 Ectopy: None Physical Exam Narrative GENERAL: cooperative HEENT: Atraumatic; normocephalic EYES; Anicteric, Normal Conjunctiva NECK; supple, normal thyroid, RESPIRATORY: Diminished to auscultation CARDIOVASCULAR: Regular S1 S2, GI: soft, normoactive bowel sounds, : No Renal angle tenderness; EXTREMITIES: No edema, no clubbing, MUSCULOSKELETAL: no muscle wasting NEURO: Awake; no lateralizing signs. SKIN: No Rash PSYCH; Flat affect Assessment & Plan Assessment/Plan (1) NSTEMI, initial episode of care: (2) Congestive heart failure (CHF): QUALIFIERS: Heart failure chronicity: acute on chronic Heart failure type: systolic Qualified Code(s): I50.23 - Acute on chronic systolic (congestive) heart failure (3) Medical non-compliance: (4) Hypertensive urgency: PLAN: Plan Patient is a 53-year-old male who presente with worsening chest pain and shortness of breath. 1. Acute on chronic congestive heart failure with reduced ejection fraction ? Patient has history of nonischemic cardiomyopathy echo on 223 demonstrated EF of 20% with moderate diffuse hypokinesis. Patient admitted to regular nursing floor managed with strict input and output, daily weight, low-sodium diet, fluid restriction as well as diuresis. Consultation was placed to cardiology patient seen by Dr. Perales's notes and recommendations reviewed 2. Elevated troponin ? Secondary to myocardial injury from patient acute congestive heart failure will continue to monitor 3. Acute hypertensive urgency ? Patient systolic blood pressure was in the 200s on admission Home medications continued with plans to adjust doses as needed. Was also placed on hydralazine as needed for scheduled blood pressure greater than 160 4. AVINASH on CKD stage IIIa ? Creatinine 2.12 on admit, baseline creatinine 1.3-1.6. Presumed prerenal AVINASH in setting of heart failure exacerbation and hypertensive urgency. Monitor daily BMP and urine output. 5. Acute asthma exacerbation ? Possibly presented by viral bronchitis. Patient admitted to being exposed to friends who had COVID and RSV as well as influenza A, requested for viral respiratory panel as well as SARS-CoV-2 assay. Started on prednisone as well as bronchodilator treatment 6. Dyslipidemia -Patient is on statin therapy, continued at home dose 7. Class I obesity with BMI of 33.6 ? Weight loss advised 8. DVT prophylaxis ? SC heparin Time spent in the patient's overall evaluation,decision-making process, review of diagnostic data, adjustment of management, discussion with other providers, nursing nursing and ancillary staff involved in patient's care documentation, 50 Minutes Charges/Coding Visit Charges Inpatient E&M: 17583 Subs Hosp L3
--- NOTE | 2023-06-16 09:54 | PCM.PN.CARD ---
Subjective Subjective Patient reports that he had a disagreement with some of the nursing staff overnight. Apparently this was around some tobacco products he had in his hospital room. The patient reports that he slept much better last night he was able to sleep at 30 degrees and noticed that his breathing was much easier. He did urinate a significant amount overnight. He denies any chest pain denies any significant lower extremity edema this morning. He does report that he is still somewhat short of breath but feels much better than he did on admission. Objective Data Vital Signs: Vital Signs Temp Pulse Resp BP Pulse Ox O2 Del Method 98.6 F 83 14 143/96 H 90 Room Air 06/16/23 08:42 06/16/23 08:42 06/16/23 08:42 06/16/23 08:42 06/16/23 08:42 06/16/23 08:42 Oxygen Delivery Method Room Air Weight: 227 lb 4.745 oz Body Mass Index (BMI) 33.5 Intake & Output: Intake and Output for Last 24 Hours 06/14/23 06/15/23 06/16/23 23:59 23:59 23:59 Intake Total 400 / 400 Output Total 925 / 925 900 / 900 Balance -525 / -525 -900 / -900 Lab / Micro Data Attestation: I reviewed the patient's lab results. 06/16/23 07:51 06/16/23 07:51 Labs: Laboratory Results - last 24 hr 06/15/23 14:09: WBC 8.6, RBC 4.65, Hgb 12.7 L, Hct 38.9 L, MCV 83.7, MCH 27.3, MCHC 32.6, RDW Std Deviation 45.3 H, RDW Coeff of Claude 15.1 H, Plt Count 247, MPV 10.4, Immature Gran % (Auto) 0.300, Neut % (Auto) 69.8, Lymph % (Auto) 21.6, Walton % (Auto) 5.7, Eos % (Auto) 2.3, Baso % (Auto) 0.3, Absolute Neuts (auto) 6.0, Absolute Lymphs (auto) 1.86, Nucleated RBC % 0, Sodium 137, Potassium 3.8, Chloride 108 H, Carbon Dioxide 19.0 L, Anion Gap 10, BUN 29 H, Creatinine 2.12 H, Est GFR (MDRD) Af Amer 42 L, Est GFR (MDRD) Non-Af 35 L, BUN/Creatinine Ratio 13.7, Glucose 134 H, Calcium 9.4, Troponin I High Sens 299 H*, B-Natriuretic Peptide 1830.9 H 06/15/23 16:20: Troponin I High Sens 266 H* 06/15/23 20:15: Magnesium 2.4, Troponin I High Sens 250 H* 06/16/23 07:51: WBC 8.3, RBC 4.44 L, Hgb 12.1 L, Hct 36.8 L, MCV 82.9, MCH 27.3, MCHC 32.9, RDW Std Deviation 43.6, RDW Coeff of Claude 14.6, Plt Count 223, MPV 10.0, Sodium 137, Potassium 3.4 L, Chloride 106, Carbon Dioxide 25.0, Anion Gap 6, BUN 30 H, Creatinine 2.04 H, Estim Creat Clear Calc 50.12, Est GFR (MDRD) Af Amer 44 L, Est GFR (MDRD) Non-Af 37 L, BUN/Creatinine Ratio 14.7, Glucose 118 H, Calcium 8.7 Rhythm Strip Rhythm Strip: Sinus Rhythm Rate: 75 Ectopy: None Cardiology Labs/Tests 06/15/23 14:09: WBC 8.6, RBC 4.65, Hgb 12.7 L, Hct 38.9 L, MCV 83.7, MCH 27.3, MCHC 32.6, Plt Count 247, MPV 10.4, Immature Gran % (Auto) 0.300, Neut % (Auto) 69.8, Lymph % (Auto) 21.6, Walton % (Auto) 5.7, Eos % (Auto) 2.3, Baso % (Auto) 0.3, Absolute Neuts (auto) 6.0, Nucleated RBC % 0, Sodium 137, Potassium 3.8, Chloride 108 H, Carbon Dioxide 19.0 L, Anion Gap 10, BUN 29 H, Creatinine 2.12 H, Est GFR (MDRD) Af Amer 42 L, Est GFR (MDRD) Non-Af 35 L, BUN/Creatinine Ratio 13.7, Glucose 134 H, Calcium 9.4, B-Natriuretic Peptide 1830.9 H 06/15/23 20:15: Magnesium 2.4 06/16/23 07:51: WBC 8.3, RBC 4.44 L, Hgb 12.1 L, Hct 36.8 L, MCV 82.9, MCH 27.3, MCHC 32.9, Plt Count 223, MPV 10.0, Sodium 137, Potassium 3.4 L, Chloride 106, Carbon Dioxide 25.0, Anion Gap 6, BUN 30 H, Creatinine 2.04 H, Est GFR (MDRD) Af Amer 44 L, Est GFR (MDRD) Non-Af 37 L, BUN/Creatinine Ratio 14.7, Glucose 118 H, Calcium 8.7 Rhythm: EKG: ECHO: Stress Test: Cardiac Cath: PCI: CT Surgery: Holter monitor: EPS: PPM: CXR: Chest CT Scan: Radiography Diagnostic Testing: Radiology Impression Chest X-Ray 06/15/23 15:00 IMPRESSION: Mild cardiomegaly. The lungs are clear. Electronically Signed: Jose Richards MD at 15:39 EST , Physical Exam Const oriented x3 HEENT normocephalic Eyes EOMs intact bilaterally Neck no JVD Chest inspection of chest normal Resp normal respiratory effort Auscultation: rales bilateral lower and wheezes anterior Cardio regular rate, regular rhythm, S1 normal heart sound, S2 normal heart sound, no murmurs and no rub Heart Sounds: gallop S3 gallop GI soft to palpation Extremity normal to inspection Skin no rashes or lesions noted Psych Psych Narrative: Patient seems easily agitated. He does have a history of bipolar disorder. His speech is somewhat pressured. Assessment & Plan Assessment/Plan (1) Congestive heart failure (CHF): QUALIFIERS: Heart failure chronicity: acute on chronic Heart failure type: systolic Qualified Code(s): I50.23 - Acute on chronic systolic (congestive) heart failure PLAN: The patient gives a history of a dilated nonischemic cardiomyopathy with an ejection fraction of 20%. He is responding to IV diuretics and reinstitution of his beta-maegan and afterload reduction therapy. We are trying to titrate his meds to a medical regiment that he can afford and obtain. (2) Chronic kidney disease: QUALIFIERS: Chronic kidney disease stage: stage 3 (moderate) Chronic kidney disease stage 3 subtype: stage 3b (GFR 30-44) Qualified Code(s): N18.32 - Chronic kidney disease, stage 3b PLAN: Creatinine is slightly improved BUN is slightly up. This needs to be monitored closely. His potassium is down related to his diuresis we have instituted spironolactone. So we need to be careful about potassium replacement but he should get a dose of potassium today. (3) Medical non-compliance: PLAN: The patient has been unable to comply due to financial situation. We have asked care management to assist him in obtaining his drugs we are utilizing all generics that he should be able to obtain with some type of assistance. The patient's bipolar disorder is probably contributing to his inability to comply with his medical regiment along with his financial status. Consideration to be given to obtaining some type of assistance for the patient's bipolar disorder. (4) Hypertensive urgency: PLAN: 's blood pressure is better controlled and it should come under easier to control situation as we titrate his medicines for his afterload reduction therapy and beta-maegan therapy. (5) NSTEMI, initial episode of care: PLAN: This was a traditional non-STEMI. Enzyme leak was related to his hypertensive urgency and decompensated heart failure. No further invasive evaluation is indicated at this time in my opinion. PLAN: Plan 1. Replace the potassium and gently. 2. Continue his current medical regimen. Transition from IV Lasix to p.o. Lasix in the next 24 hours. 3. Work with care management to obtain access to his medications. If the patient can get his meds and is reluctant to remain in the hospital he could be discharged home. Will need to make certain he has access to his medications. 4. The patient should be set up to be seen in the [facility] office in 1 week with advanced practitioner. Charges/Coding Visit Charges Inpatient E&M: 80671 Subs Hosp L3
[2023-06-16] MEDS: guaiFENesin 1,200 MG Tablet 1200 MG PO ×2 (11:16→21:59)
[2023-06-16] MEDS: predniSONE 20 MG Tablet 40 MG PO (11:16)
[2023-06-16] MEDS: Cefdinir 300 MG Capsule PO ×2 (11:16→21:57)
--- NOTE | 2023-06-16 12:39 | CASEMGMT ---
RN?CM?PRECONSTRUCTION MANAGER?CM?to room to meet with patient for initial transition planning/care coordination?assessment.?RN?CM?introduced self and role at [facility].? Pt voices understanding and consents to?assessment?at this time.? Pt resting in bed in no distress at this time.? Pt is A/O at this time and answers all questions appropriately.?? Care providers, pharmacy, and demographics verified/updated at this time. PCP: Dr Catalan. Pt had an appt w/him in March but had to cancel d/t could not afford to go. Specialists: Pt goes to the [facility] for counseling and sees Dr Sony Marr. Pt has CM thru El[employer] Sanders. PH: [phone]. Pt was seeing a sander wooden pencils in [place] (he thinks [facility]), but he retired about a year ago, and he has not established w/a new sander wooden pencils since then. Dr Catalan has been managing since then. Preferred Pharmacy/Rx benefit: Pt states he currently does not have any medications, stating he ran out of them and could not afford to buy them and states the Rx's have also . Pt would like to get all of his meds from [facility] Retail pharmacy before discharge. Pt states he only has $20 to his name and cannot afford to pay for medications, but states, depending on amt, he may be able to borrow some money from his brother. Pt may need to use [facility] Rx assist program. Lynette YOU, and RN Caty BURGOS, made aware. Insurance: [facility] A/B, [facility]. Pt states he just got signed up with this. Finances: Pt states he gets SSI. Gross is $1,151/month ($977/mo after deductions). He just signed up for food stamps a couple weeks ago. Living Will/HPOA:?Pt states he completed a HCPOA @ [facility] and listed Eloina as his agent. He states she was his girlfriend at the time, but she broke up with him about a year ago. He states he does still talk to her, but he does not want her to be his POA any longer. He would like to complete new HCPOA and would like his brother, Serafin, to be POA. He states, The only person I want making any medical decisions for me is my brother . SW, Lynette, made aware. Pt made aware if SW unable to complete w/him while @ [facility], he can make an appt w/SW to complete as an OP. He voices understanding. LNOK: Brother, Serafin Tong. Pt has one adult child/daughter, Lloyd Tong, but she is not very involved. Living Arrangements: Pt states he just lost his apt about a week ago and is currently staying at [facility] and has paid for it for a month so far (up to 06/22). He states cost is $400/month and plans to do that again next month, stating he can afford that for now. He is independent w/ADL's and manages his own medications. Transportation:?Pt states drives self and states no transportation concerns at this time.?Pt's car is current;y in [facility] parking lot. DME: ? Denies using any DME and denies needs.? HHC/SNF:No hx of either. Pt has been to [facility] for OP therapy. No needs identified. Pt wishes to return home and states has no concerns with going home at time of discharge. CM?& SW to follow for any further discharge planning/needs.? Pt voices no further concerns/needs at this time.? Advised pt to ask for?CM/SW?if any further questions/concerns/needs arise.? Voices understanding. PLAN:??Home SW to see for resources and POA, if able, and possible Rx assist program. CM to follow for Rx's Rubia MONTENEGRON?RN?LORETTA
[2023-06-16 14:37] VITALS: BP 120/76; PULSE 63; RESP 16; TEMP 37; O2SAT 97
[2023-06-16 15:49] VITALS: PULSE 104; RESP 20
[2023-06-16] MEDS: Ipratropium/Albuterol Sulfate 3 ML AMPUL.NEB INHALATION (15:49)
--- NOTE | 2023-06-16 17:06 | CASEMGMT ---
SW was informed patient needs resources and he would like to do Healthcare POA. SW met with patient. Introduced self and role at [facility]. Patient explained his current situation and his frustrations with life right now. SW listened and provided emotional support. SW also provided patient with a [address] card and a list of current available apartments in the area. SW also completed a Healthcare Power of Greenhouse Laborer with patient naming his brother as his POA. Copies were made and given to patient along with original. A copy was also placed in patient's chart. Patient was thankful for resources and for SW listening. Lynette Mallory DIRECTOR FINANCIAL PLANNING [place]
[2023-06-16] MEDS: traZODone 50 MG Tablet 150 MG PO (21:58)
[2023-06-16] MEDS: Atorvastatin Calcium 40 MG Tablet PO (21:59)
[2023-06-16 22:11] VITALS: BP 161/109; PULSE 89; RESP 20; TEMP 36.5; O2SAT 95
[2023-06-16] MEDS: LORazepam 2 MG/ML Syringe 0.5 MG IV (22:51)
[2023-06-17 02:18] VITALS: BMI 34.0
[2023-06-17 07:35] VITALS: O2SAT 97
[2023-06-17 08:01] LABS: Absolute Lymphocyte Count 1.34 X10^3/uL (0.83-4.51); Absolute Neutrophil Count 7.7 X10^3/uL (2.0-7.7); Basophil# 0.01 X10^3/uL; Basophil% 0.1 % (0-1); Eosinophil# 0.04 X10^3/uL; Eosinophils% 0.4 % (0-5); Hematocrit 36.9 % (40-54); Hemoglobin 12.1 g/dL (13.0-16.5); Lymphocyte # 1.34 X10^3/ul (0.83-4.51); Lymphocyte % 13.6 % (19-41); Mean Corp Hgb Conc 32.8 g/dL (32-36); Mean Corpuscular Hgb 27.3 pg (27.0-32.0); Mean Corpuscular Volume 83.3 fL (80-94); Mean Platelet Vol. 10.8 fl (6.2-12.0); Monocyte# 0.71 X10^3/uL; Monocyte% 7.2 % (0-10); NRBC Flagged by Analyzer 0 % (0-5); Neutrophil # 7.69 X10^3/uL (2.7-7.7); Neutrophil % 78.3 % (47-70); Platelet Count 231 K/mm3 (150-450); RBC Distribution Width CV 14.6 % (11.6-14.6); RBC Distribution Width SD 44.1 fl (35.1-43.9); Red Blood Count 4.43 M/mm3 (4.6-6.2); White Blood Count 9.8 K/mm3 (4.4-11.0)
[2023-06-17 08:31] LABS: Anion Gap 5 (5-15); BUN 35 mg/dL (7-18); BUN/Creat Ratio 17.2 RATIO (10-20); Calcium,Total 8.7 mg/dL (8.5-10.1); Chloride 106 mmol/L (98-107); Creatinine, Serum 2.04 mg/dL (0.70-1.30); EST Glomerular Filtration Rate 37 mL/min (>60); Est Glom Filt Rate - Afr Amer 44 mL/min (>60); Estimated Creatinine Clearance 50.48 ml/min; Glucose 138 mg/dL (74-106); Magnesium 2.5 mg/dL (1.6-2.6); Phosphorus 3.9 mg/dL (2.5-4.9); Potassium 3.9 mmol/L (3.5-5.1); Sodium Level 135 mmol/L (136-145)
[2023-06-17 08:45] VITALS: BP 167/108; PULSE 75; RESP 16; TEMP 36.7; O2SAT 94
[2023-06-17] MEDS: Cefdinir 300 MG Capsule PO (08:49)
[2023-06-17] MEDS: Furosemide 40 MG Tablet PO (08:49)
[2023-06-17] MEDS: Carvedilol 25 MG Tablet PO (08:50)
[2023-06-17] MEDS: guaiFENesin 1,200 MG Tablet 1200 MG PO (08:50)
[2023-06-17] MEDS: predniSONE 20 MG Tablet 40 MG PO (08:50)
[2023-06-17] MEDS: Aspirin 81 MG TAB.CHEW PO (08:50)
[2023-06-17] MEDS: Spironolactone 25 MG Tablet PO (08:50)
[2023-06-17] MEDS: Losartan Potassium 25 MG Tablet PO (08:52)
[2023-06-17] MEDS: Heparin Injection (Vial) 5,000 UNIT/ML VIAL 5000 UNIT SC (08:52)
--- NOTE | 2023-06-17 08:52 | PN.HOSP_ITS ---
Reason for Visit Reason for Visit: Diagnoses Essential (primary) hypertension (06/15/23) Hypertensive urgency (06/15/23) Non-ST elevation (NSTEMI) myocardial infarction (06/15/23) Acute on chronic systolic (congestive) heart failure (06/15/23) Chronic kidney disease, stage 3b (06/15/23) Patient's noncompliance with other medical treatment and regimen due to unspecified reason (06/15/23) Subjective Subjective Patient seen breathing significantly improved. Plan is for patient to be discharged home Objective Data Objective Data Vital Signs: Vital Signs Temp Pulse Resp BP Pulse Ox O2 Del Method 98.1 F 75 16 167/108 H 94 Room Air 06/17/23 08:45 06/17/23 08:45 06/17/23 08:45 06/17/23 08:45 06/17/23 08:45 06/17/23 08:45 Oxygen Delivery Method Room Air Weight: 104.6 kg Body Mass Index (BMI) 34.0 Intake & Output: Intake and Output for Last 24 Hours 06/15/23 06/16/23 06/17/23 23:59 23:59 23:59 Intake Total 400 / 400 800 / 1040 480 / 480 Output Total 925 / 925 900 / 900 Balance -525 / -525 -100 / 140 480 / 480 Lab / Micro Data 06/17/23 07:15 06/17/23 07:15 Labs: Laboratory Results - last 24 hr 06/17/23 07:15: WBC 9.8, RBC 4.43 L, Hgb 12.1 L, Hct 36.9 L, MCV 83.3, MCH 27.3, MCHC 32.8, RDW Std Deviation 44.1 H, RDW Coeff of Claude 14.6, Plt Count 231, MPV 10.8, Immature Gran % (Auto) 0.400, Neut % (Auto) 78.3 H, Lymph % (Auto) 13.6 L, Gonzales % (Auto) 7.2, Eos % (Auto) 0.4, Baso % (Auto) 0.1, Absolute Neuts (auto) 7.7, Absolute Lymphs (auto) 1.34, Nucleated RBC % 0, Sodium 135 L, Potassium 3.9, Chloride 106, Carbon Dioxide 24.0, Anion Gap 5, BUN 35 H, Creatinine 2.04 H , Estim Creat Clear Calc 50.48, Est GFR (MDRD) Af Amer 44 L, Est GFR (MDRD) Non- Af 37 L, BUN/Creatinine Ratio 17.2, Glucose 138 H, Calcium 8.7, Phosphorus 3.9, Magnesium 2.5 Micro: Microbiology 06/16/23 11:07 Mucosa - Nasopharyngeal Coronavirus COVID-19 PCR - Final 06/16/23 11:07 Mucosa - Nasopharyngeal Respiratory Panel (PCR) - Final Radiography Diagnostic Testing: Radiology Impression Echocardiogram 06/15/23 16:55 Interpretation Summary The estimated ejection fraction is 35 %. Wall motion abnormalities as described. Stage 2 diastolic dysfunction. The left atrium is moderately enlarged. The right atrium is mildly enlarged. Trivial mitral valve insufficiency. Mild (1+) aortic valve insufficiency. Ordering Physician: Kev Waters Referring Physician: Venkat Catalan Performed By: Bright Pena RCS Rhythm Strip Rhythm Strip: Sinus Rhythm Rate: 75 Ectopy: None Physical Exam Narrative GENERAL: cooperative HEENT: Atraumatic; normocephalic EYES; Anicteric, Normal Conjunctiva NECK; supple, normal thyroid, RESPIRATORY: Diminished to auscultation CARDIOVASCULAR: Regular S1 S2, GI: soft, normoactive bowel sounds, : No Renal angle tenderness; EXTREMITIES: No edema, no clubbing, MUSCULOSKELETAL: no muscle wasting NEURO: Awake; no lateralizing signs. SKIN: No Rash PSYCH; Flat affect Assessment & Plan Assessment/Plan (1) NSTEMI, initial episode of care: (2) Congestive heart failure (CHF): QUALIFIERS: Heart failure chronicity: acute on chronic Heart failure type: systolic Qualified Code(s): I50.23 - Acute on chronic systolic (congestive) heart failure (3) Medical non-compliance: (4) Hypertensive urgency: PLAN: Plan Patient is a 53-year-old male who presente with worsening chest pain and shortness of breath. 1. Acute on chronic congestive heart failure with reduced ejection fraction ? Patient has history of nonischemic cardiomyopathy echo on 223 demonstrated EF of 20% with moderate diffuse hypokinesis. Patient admitted to regular nursing floor managed with strict input and output, daily weight, low-sodium diet, fluid restriction as well as diuresis. Consultation was placed to cardiology patient seen by Dr. Perales's notes and recommendations reviewed 2. Elevated troponin ? Secondary to myocardial injury from patient acute congestive heart failure will continue to monitor 3. Acute hypertensive urgency ? Patient systolic blood pressure was in the 200s on admission Home medications continued with plans to adjust doses as needed. Was also placed on hydralazine as needed for scheduled blood pressure greater than 160 4. AVINASH on CKD stage IIIa ? Creatinine 2.12 on admit, baseline creatinine 1.3-1.6. Presumed prerenal AVINASH in setting of heart failure exacerbation and hypertensive urgency. Monitor daily BMP and urine output. 5. Acute asthma exacerbation ? Possibly presented by viral bronchitis. Patient admitted to being exposed to friends who had COVID and RSV as well as influenza A, requested for viral res piratory panel as well as SARS-CoV-2 assay. Started on prednisone as well as bronchodilator treatment 6. Dyslipidemia -Patient is on statin therapy, continued at home dose 7. Class I obesity with BMI of 33.6 ? Weight loss advised 8. DVT prophylaxis ? SC heparin Time spent in the patient's overall evaluation,decision-making process, review of diagnostic data, adjustment of management, discussion with other providers, nursing nursing and ancillary staff involved in patient's care documentation, 35 Minutes Charges/Coding Visit Charges Inpatient E&M: 02395 Subs Hosp L2
--- NOTE | 2023-06-17 09:29 | DS.PCM_ITS ---
Providers Date of Admission: 06/15/23 Date of Discharge: 06/17/23 Primary Care Physician: Dr. Venkat Catalan MD Consultations 06/15/23 16:55 Consult: Cardiology Routine Consulting Provider: Paresh Conley Reason for Consult: NSTEMI, h/o CHF w/ EF 20% in 06/2022 EMERGENT Consult: No MD Notified: Yes Date Notified: 06/15/23 Time Notified: 15:46 Method of Notification: Text Reason For Visit: ELEVATED TROPONINS, HYPERTENSIVE URGENCY Diagnosis Discharge Diagnosis (1) NSTEMI, initial episode of care: Status: Acute Code(s): I21.4 - Non-ST elevation (NSTEMI) myocardial infarction (2) Congestive heart failure (CHF): Status: Acute Code(s): I50.9 - Heart failure, unspecified Qualifiers: Heart failure type: systolic Heart failure chronicity: acute on chronic Qualified Code(s): I50.23 - Acute on chronic systolic (congestive) heart failure (3) Medical non-compliance: Status: Acute Code(s): Z91.199 - Patient's noncompliance with other medical treatment and regimen due to unspecified reason (4) Hypertensive urgency: Status: Acute Code(s): I16.0 - Hypertensive urgency Plan Patient is a 53-year-old male who presente with worsening chest pain and shortness of breath. 1. Acute on chronic congestive heart failure with reduced ejection fraction ? Patient has history of nonischemic cardiomyopathy echo on 223 demonstrated EF of 20% with moderate diffuse hypokinesis. Patient admitted to regular nursing floor managed with strict input and output, daily weight, low-sodium diet, fluid restriction as well as diuresis. Consultation was placed to cardiology patient seen by Dr. Perales's notes and recommendations reviewed 2. Elevated troponin ? Secondary to myocardial injury from patient acute congestive heart failure will continue to monitor 3. Acute hypertensive urgency ? Patient systolic blood pressure was in the 200s on admission Home medications continued with plans to adjust doses as needed. Was also placed on hydralazine as needed for scheduled blood pressure greater than 160 4. AVINASH on CKD stage IIIa ? Creatinine 2.12 on admit, baseline creatinine 1.3-1.6. Presumed prerenal AVINASH in setting of heart failure exacerbation and hypertensive urgency. Monitor daily BMP and urine output. 5. Acute asthma exacerbation ? Possibly presented by viral bronchitis. Patient admitted to being exposed to friends who had COVID and RSV as well as influenza A, requested for viral respiratory panel as well as SARS-CoV-2 assay. Started on prednisone as well as bronchodilator treatment 6. Dyslipidemia -Patient is on statin therapy, continued at home dose 7. Class I obesity with BMI of 33.6 ? Weight loss advised 8. DVT prophylaxis ? SC heparin Time spent in the patient's overall evaluation,decision-making process, review of diagnostic data, adjustment of management, discussion with other providers, nursing nursing and ancillary staff involved in patient's care documentation, 35 Minutes Medications at Discharge Home Medications amlodipine 5 mg tablet (Norvasc) 5 mg PO DAILY blood pressure 30 days #30 tabs 10/31/17 atorvastatin 40 mg tablet 40 mg PO QHS cholesterol 06/15/23 metoprolol succinate 25 mg tablet,extended release 24 hr 25 mg PO DAILY blood pressure 06/15/23 albuterol sulfate 90 mcg/actuation aerosol inhaler 2 inh inhalation Q6H PRN shortness of breath or wheezing #8.5 grams 06/17/23 aspirin 81 mg chewable tablet 81 mg PO BREAKFAST #30 tabs 06/17/23 atorvastatin 40 mg tablet 40 mg PO QHS #30 tabs 06/17/23 budesonide-formoterol HFA 160 mcg-4.5 mcg/actuation aerosol inhaler (Symbicort) 1 puff inhalation BID #10.2 grams 06/17/23 carvedilol 25 mg tablet 25 mg PO BID #60 tabs 06/17/23 cefdinir 300 mg capsule 300 mg PO Q12 #10 caps 06/17/23 furosemide 40 mg tablet 40 mg PO DAILY #30 tabs 06/17/23 furosemide 40 mg tablet 40 mg PO DAILY diuretic #30 tabs 06/17/23 guaifenesin 1,200 mg tablet, extended release 12 hr (Mucus Relief ER) 1,200 mg PO BID #20 tabs 06/17/23 losartan 25 mg tablet 25 mg PO BID #60 tabs 06/17/23 prednisone 20 mg tablet 40 mg (2 x 20 mg) PO DAILY@0800 #10 tabs 06/17/23 spironolactone 25 mg tablet 25 mg PO DAILY #30 tabs 06/17/23 Hospital Course Summary of Care Provided Minutes Spent on Discharge: 35 Physical Exam Narrative GENERAL: cooperative HEENT: Atraumatic; normocephalic EYES; Anicteric, Normal Conjunctiva NECK; supple, normal thyroid, RESPIRATORY: Diminished to auscultation CARDIOVASCULAR: Regular S1 S2, GI: soft, normoactive bowel sounds, : No Renal angle tenderness; EXTREMITIES: No edema, no clubbing, MUSCULOSKELETAL: no muscle wasting NEURO: Awake; no lateralizing signs. SKIN: No Rash PSYCH; Flat affect Weight / BMI Weight Weight: 104.6 kg Body Mass Index (BMI) 34.0 ABG / Lab / Microbiology Data 06/17/23 07:15 06/17/23 07:15 Laboratory: Laboratory Results - last 24 hr 06/17/23 07:15: WBC 9.8, RBC 4.43 L, Hgb 12.1 L, Hct 36.9 L, MCV 83.3, MCH 27.3, MCHC 32.8, RDW Std Deviation 44.1 H, RDW Coeff of Claude 14.6, Plt Count 231, MPV 10.8, Immature Gran % (Auto) 0.400, Neut % (Auto) 78.3 H, Lymph % (Auto) 13.6 L, [place] % (Auto) 7.2, Eos % (Auto) 0.4, Baso % (Auto) 0.1, Absolute Neuts (auto) 7.7, Absolute Lymphs (auto) 1.34, Nucleated RBC % 0, Sodium 135 L, Potassium 3.9, Chloride 106, Carbon Dioxide 24.0, Anion Gap 5, BUN 35 H, Creatinine 2.04 H , Estim Creat Clear Calc 50.48, Est GFR (MDRD) Af Amer 44 L, Est GFR (MDRD) Non- Af 37 L, BUN/Creatinine Ratio 17.2, Glucose 138 H, Calcium 8.7, Phosphorus 3.9, Magnesium 2.5 Microbiology: Microbiology 06/16/23 11:07 Mucosa - Nasopharyngeal Coronavirus COVID-19 PCR - Final 06/16/23 11:07 Mucosa - Nasopharyngeal Respiratory Panel (PCR) - Final Radiography Diagnostic Testing: Radiology Impression Echocardiogram 06/15/23 16:55 Interpretation Summary The estimated ejection fraction is 35 %. Wall motion abnormalities as described. Stage 2 diastolic dysfunction. The left atrium is moderately enlarged. The right atrium is mildly enlarged. Trivial mitral valve insufficiency. Mild (1+) aortic valve insufficiency. Ordering Physician: Kev Waters Referring Physician: Venkat Catalan Performed By: Bright Pena RCS D/C Instructions Discharge Diet: 8 Cup Fluid Restriction and 2000 mg Sodium Diet Discharge Activity: Return to Normal Activity Call your doctor if you observe: Fever of 101 or Higher, Shortness of breath, Fainting spells and Chest pain Meaningful Use Info Meaningful Use Diagnoses (Choose all that apply): CHF CHF MALA/ARB ordered at discharge?: Yes Documented LVEF (%): 35 Discharge Plan Admission Admit Date/Time: 06/15/23 15:27 Attending Provider: J Carlos Chapman Primary Care Provider: Venkat Catalan Consulting Providers: Paresh Conley; Kev Waters Discharge Orders/Prescriptions Prescriptions: New furosemide 40 mg Tablet 40 mg PO DAILY Qty: 30 0RF atorvastatin 40 mg Tablet 40 mg PO QHS Qty: 30 0RF carvedilol 25 mg Tablet 25 mg PO BID Qty: 60 0RF prednisone 20 mg Tablet 40 mg PO DAILY@0800 Qty: 10 0RF spironolactone 25 mg Tablet 25 mg PO DAILY Qty: 30 0RF losartan 25 mg Tablet 25 mg PO BID Qty: 60 0RF aspirin 81 mg Tablet,Chewable 81 mg PO BREAKFAST Qty: 30 0RF cefdinir 300 mg Capsule 300 mg PO Q12 Qty: 10 0RF guaifenesin [Mucus Relief ER] 1,200 mg Tablet Extended Release 12hr 1,200 mg PO BID Qty: 20 0RF albuterol sulfate 90 mcg/actuation HFA aerosol inhaler 2 inh inhalation Q6H PRN (Reason: shortness of breath or wheezing) Qty: 8.5 0RF budesonide-formoterol [Symbicort] 160-4.5 mcg/actuation HFA aerosol inhaler 1 puff inhalation BID Qty: 10.2 0RF Continued amlodipine [Norvasc] 5 MG tablet 5 mg PO DAILY 30 Days Qty: 30 3RF Patient Comments: has not been able to take for approx 2 months d/t insurance atorvastatin 40 mg tablet 40 mg PO QHS Patient Comments: has not been able to take for approx 2 months d/t insurance metoprolol succinate 25 mg tablet extended release 24 hr 25 mg PO DAILY Patient Comments: has not been able to take for approx 2 months d/t insurance furosemide 40 mg tablet 40 mg PO DAILY Qty: 30 0RF Discontinued budesonide-formoterol 6 GM HFA aerosol inhaler 10.2 g IH BID 30 Days 3RF Patient Comments: has not been able to take for approx 2 months d/t insurance albuterol sulfate 1 INHALER inhaler 2 puff INHALATION Q6H PRN PRN (Reason: Sob &/Or Wheezing) Qty: 1 3RF Patient Comments: has not been able to take for approx 2 months d/t insurance hydrochlorothiazide 25 MG tablet 25 mg PO DAILY 30 Days Qty: 30 3RF Patient Comments: has not been able to take for approx 2 months d/t insurance trazodone 150 mg tablet 150 mg PO QHS Patient Comments: take 1 tablet by mouth at bedtime Referrals / Follow Up: Venkat Catalan MD [Primary Care Provider] - Within 2 Weeks Paresh Conley MD [Med Staff - Active Staff] - Within 2 Weeks Disposition Disposition (needs filled in before D/C Order can be placed): Home, Self Care Charges/Coding Visit Charges Inpatient E&M: 61903 Disch Hosp >30min
--- NOTE | 2023-06-17 09:49 | CASEMGMT ---
Addendum entered by Eva Buenrostro 06/19/23 08:47: Late addendum entered for 06/17/23 @ 1133: Per Nasir in [facility] pharmacy, the Symbicort requires a PA (he states he is not able to see the # to call for PA and that it was sent to Dr Chapman via electronic fax). Dr Chapman made aware and states it is okay for pt to discharge without it. Nasir states the chewable ASA and the generic mucinex is not covered by insurance d/t is OTC and the total cost of his other medications is $36.37. Per Nasir, he ran pt's medications through [facility], but states the EVAN crossover comes up as being ineligible. KUMAR BURGOS placed call to registration who states it is still showing as pending and she is not able to verify it as active at this time. KUMAR BURGOS to room. Pt made of above. He states he that $36.37 is a lot of money at this time, stating he does not have that, and states you might as well say it's $3,000 . Pt states his brother may be able to cover this cost, but that states, I hate to ask him to borrow that , but then he did give permission for KUMAR BURGOS to call his brother. This KUMAR BURGOS placed call to Serafin huang, @ [phone]. He states he is willing/able to pay the $36.37 and states will call [facility] retail pharmacy now to pay for it. Pt made aware. Pt is aware that baby ASA and mucinex will need to be purchased OTC and he states is okay with this. He also states that he is currently using OTC Primatene inhaler and that he will use that for now until he is able to get the Symbicort. Pt denies having other discharge needs. Original Note: KUMAR BURGOS NOTE: Pt being discharged today. Rx's have been e-scribed to [facility] retail pharm. Call placed to the pharmacy for hawkins check. They will contact this KUMAR BURGOS once hawkins check completed. Ruiba OVIEDO RN, CM
[2023-06-17 10:30] VITALS: O2SAT 94; O2SAT 95
--- NOTE | 2023-06-17 10:32 | PN.CARD_ITS ---
Subjective Subjective The patient reports that he is feeling much better today he slept well and continues to have episodic recumbent cough. He has no lower extremity edema his I's and O's are incomplete due to him failing to measure his urine output. The patient is tolerating his current medical regiment. His blood pressure still ab ove ideal levels but he is taking his current medical regimen. His weight is 230 pounds today. The patient's echo showed an EF of 35% with lateral wall motion segmental abnormalities. He had mild aortic insufficiency mild mitral regurgitation and a pulmonary artery pressure of 40. His creatinine is stabilized at 2.04. His potassium is up to normal range. The patient is expecting to be discharged today. Objective Data Vital Signs: Vital Signs Temp Pulse Resp BP Pulse Ox O2 Del Method 98.1 F 75 16 167/108 H 94 Room Air 06/17/23 08:45 06/17/23 08:45 06/17/23 08:45 06/17/23 08:45 06/17/23 08:45 06/17/23 08:55 Oxygen Delivery Method Room Air Weight: 230 lb 9.656 oz Body Mass Index (BMI) 34.0 Intake & Output: Intake and Output for Last 24 Hours 06/15/23 06/16/23 06/17/23 23:59 23:59 23:59 Intake Total 400 / 400 800 / 1040 480 / 480 Output Total 925 / 925 900 / 900 Balance -525 / -525 -100 / 140 480 / 480 Lab / Micro Data Attestation: I reviewed the patient's lab results. 06/17/23 07:15 06/17/23 07:15 Labs: Laboratory Results - last 24 hr 06/17/23 07:15: WBC 9.8, RBC 4.43 L, Hgb 12.1 L, Hct 36.9 L, MCV 83.3, MCH 27.3, MCHC 32.8, RDW Std Deviation 44.1 H, RDW Coeff of Claude 14.6, Plt Count 231, MPV 10.8, Immature Gran % (Auto) 0.400, Neut % (Auto) 78.3 H, Lymph % (Auto) 13.6 L, [place] % (Auto) 7.2, Eos % (Auto) 0.4, Baso % (Auto) 0.1, Absolute Neuts (auto) 7.7, Absolute Lymphs (auto) 1.34, Nucleated RBC % 0, Sodium 135 L, Potassium 3.9, Chloride 106, Carbon Dioxide 24.0, Anion Gap 5, BUN 35 H, Creatinine 2.04 H , Estim Creat Clear Calc 50.48, Est GFR (MDRD) Af Amer 44 L, Est GFR (MDRD) Non- Af 37 L, BUN/Creatinine Ratio 17.2, Glucose 138 H, Calcium 8.7, Phosphorus 3.9, Magnesium 2.5 Micro: Microbiology 06/16/23 11:07 Mucosa - Nasopharyngeal Coronavirus COVID-19 PCR - Final 06/16/23 11:07 Mucosa - Nasopharyngeal Respiratory Panel (PCR) - Final Rhythm Strip Rhythm Strip: Sinus Rhythm Rate: 75 Ectopy: None Cardiology Labs/Tests 06/17/23 07:15: WBC 9.8, RBC 4.43 L, Hgb 12.1 L, Hct 36.9 L, MCV 83.3, MCH 27.3, MCHC 32.8, Plt Count 231, MPV 10.8, Immature Gran % (Auto) 0.400, Neut % (Auto) 78.3 H, Lymph % (Auto) 13.6 L, [place] % (Auto) 7.2, Eos % (Auto) 0.4, Baso % (Auto) 0.1, Absolute Neuts (auto) 7.7, Nucleated RBC % 0, Sodium 135 L, Potas sium 3.9, Chloride 106, Carbon Dioxide 24.0, Anion Gap 5, BUN 35 H, Creatinine 2.04 H, Est GFR (MDRD) Af Amer 44 L, Est GFR (MDRD) Non-Af 37 L, BUN/Creatinine Ratio 17.2, Glucose 138 H, Calcium 8.7, Phosphorus 3.9, Magnesium 2.5 Rhythm: EKG: ECHO: Stress Test: Cardiac Cath: PCI: CT Surgery: Holter monitor: EPS: PPM: CXR: Chest CT Scan: Radiography Diagnostic Testing: Radiology Impression Echocardiogram 06/15/23 16:55 Interpretation Summary The estimated ejection fraction is 35 %. Wall motion abnormalities as described. Stage 2 diastolic dysfunction. The left atrium is moderately enlarged. The right atrium is mildly enlarged. Trivial mitral valve insufficiency. Mild (1+) aortic valve insufficiency. Ordering Physician: Kev Waters Referring Physician: Venkat Catalan Performed By: Bright Pena RCS Physical Exam Narrative The patient's pressured speech is somewhat less impressive this morning. Const oriented x3 HEENT normocephalic Eyes EOMs intact bilaterally Neck no JVD Chest inspection of chest normal Resp normal respiratory effort Auscultation: Negative for rales or rhonchi Cardio regular rate, regular rhythm, S1 normal heart sound, S2 normal heart sound, no murmurs and no rub Heart Sounds: gallop S3 gallop (Soft heard along the right sternal border.) GI soft to palpation and non-tender Extremity no pedal edema Skin Skin Narrative: Multiple tattoos. Psych mental status grossly normal Psych Narrative: Pressured speech concerning for manic expression of his bipolar disease. Nursing staff reports that he has a behavioral health provider. Assessment & Plan Assessment/Plan (1) Congestive heart failure (CHF): QUALIFIERS: Heart failure type: systolic Heart failure chronicity: acute on chronic Qualified Code(s): I50.23 - Acute on chronic systolic (congestive) heart failure PLAN: The patient's symptoms have markedly improved with diuresis and better control of his blood pressure. He is tolerating his current medical regiment without side effects. Care management and the nursing staff is working to assist him with his Medicaid access to his medications. The patient was instructed to call my office for follow-up with me in 1 week. If he cannot obtain his medications by Monday we will work to try and get him access. (2) Medical non-compliance: PLAN: The patient's primary concern is financial. He also has a behavioral health issue with bipolar disorder. This needs to be followed up with his behavioral health specialist. If he is unable to afford access we need to try and find him access into a behavioral health clinic. We will address that next week in our office. It is mandatory that we get access to his medications and behavioral health care to assist with overall management of his heart failure and avoiding unnecessary readmissions to the hospital. (3) Hypertensive urgency: PLAN: This is adequately controlled on his current medical regiment. We may need to increase his antihypertensive in the ambulatory setting depending on his blood pressure next week when he is evaluated. (4) Hypertensive chronic kidney disease with stage 1 through stage 4 chronic kidney disease, or chronic kidney disease: PLAN: Creatinine has been stable here in the hospital he should have a basic metabolic panel checked in 1 week as we have started him on spironolactone and angiotensin receptor maegan therapy. PLAN: Plan 1. Discharge to home. 2. Continue current medical therapy. 3. Call Dr. Conley office to arrange follow-up appointment on Monday to be seen within 7 to [address] Conley office if there is issues with accessing his medical care when he calls on Monday. 5. Basic metabolic panel in 1 week after seen in the office. Need to follow-up impact of spironolactone and angiotensin receptor maegan therapy. Baseline creatinine is 2.04 and serum was in the normal range at 3.8. Charges/Coding Visit Charges Inpatient E&M: 84075 Subs Hosp L3
--- NOTE | 2023-06-19 13:06 | CASEMGMT ---
Addendum entered by Aleksandra Jean-Baptiste 06/19/23 13:09: For medication Symbicort Original Note: Prior auth submitted via Covermymeds. Pt Ashby: [id number].
--- NOTE | 2023-06-21 11:06 | CASEMGMT ---
KUMAR BURGOS NOTE: Fax [facility] stating that Symbicort inhaler was denied coverage. KUMAR CM placed call to pt to notify him of same. No answer. VM left for him to return call to this RN CM today, if possible, and also provided w/Aleksandra, KUMAR BURGOS # to call if he calls back any time after today, as this RN CM will not be available. KUMAR BURGOS also placed call to Dr Catalan's office and spoke w/Maddy, the triage nurse. She was made aware Symbicort was prescribed at discharge from [facility] on Sat, that prior auth was required, and that insurance denied coverage. She was provided w/the info on the fax that it was denied d/t at least 2 other covered drugs had not been tried prior to the Symbicort (Advair, Breo Ellipta, or Dulera). She states she will pass this information to Dr Catalan. Rubia MONTENEGRON KUMAR BURGSO
--- NOTE | 2023-06-24 13:35 | CASEMGMT ---
Received vm from pt. TC back to pt, he is aware that his Symbicort has been denied by his insurance and his PCP was updated on insurance response when PA was denied. Pt states he thought this would be the case. Pt denies any further needs at this time.
== END 2023-06-17 11:58 | disposition home or self-care (01) | DRG 280 ==
LOC: ED 15:38 → PCU 16:13
PROVIDERS: Emergency Medicine; Family Medicine; Admitting Provider Hospitalist; Emergency Provider Emergency Medicine; PCP Family Medicine; Visit Provider Internal Medicine
DX: I13.0 Hypertensive heart and chronic kidney disease with heart failure and stage 1 through stage 4 chronic kidney disease, or unspecified chronic kidney disease (principal); I21.4 Non-ST elevation (NSTEMI) myocardial infarction; I50.23 Acute on chronic systolic (congestive) heart failure; N17.9 Acute kidney failure, unspecified; J45.901 Unspecified asthma with (acute) exacerbation; I42.0 Dilated cardiomyopathy; N18.31 Chronic kidney disease, stage 3a; F31.9 Bipolar disorder, unspecified; I16.0 Hypertensive urgency; E78.5 Hyperlipidemia, unspecified; Z91.199 Patient's noncompliance with other medical treatment and regimen due to unspecified reason
CPT/HCPCS: 36415; 71045; 80048; 83735; 83880; 84100; 84484; 85025; 85027; 87633; 87635; 93005; 93306; 94640; 94668; 99285; Q9957; A4216; C8929; J1940

== ENCOUNTER → 2023-07-11 | Outpatient (CLI) | payer MEDICARE, MEDICAID, SELFPAY ==
[2023-07-11 14:55] LABS: Anion Gap 6 (5-15); BUN 23 mg/dL (7-18); BUN/Creat Ratio 12.2 RATIO (10-20); Calcium,Total 9.3 mg/dL (8.5-10.1); Chloride 106 mmol/L (98-107); Creatinine, Serum 1.88 mg/dL (0.70-1.30); EST Glomerular Filtration Rate 40 mL/min (>60); Est Glom Filt Rate - Afr Amer 49 mL/min (>60); Glucose 121 mg/dL (74-106); Potassium 3.9 mmol/L (3.5-5.1); Sodium Level 139 mmol/L (136-145)
--- OUTSIDE RECORDS SUMMARY | 2023-07-11 19:10 | XMS RPT_ITS | CCD ---
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 through Monday between 8a.m. and 4:30p.m. Please follow the directions below to access the portal: 1.Access the email account you provided upon registration to the [facility].2.Look for an invitation email from [facility].3.Open the email and access the invitation link: Accept Invitation to [employer])4.Fill in the required cote to create your account. Sign into [email or web address] with your username and password that you [...] you will allow to register on the [facility] Patient Portal for access to your information. You can also access the [employer] Patient Portal on the [employer]. Simply click on Health Records under Health Data and then click on the Too logo. HOW TO SAFELY DISPOSE OF PRESCRIPTION [...] Call your local pharmacy or go to http://Tectura.Fit Steps/[email or web address] to find one close to you.3.Make use of household items: Use cat litter or old coffee grounds to dispose medications if other options are not available. Mix your drugs with these household products, seal them in an airtight container and throw it into the garbage. Call [facility]: [phone] to be sure your drugs can be [...] been reviewed and explained to me and I,KEVIN TONG understand my current condition and have read and understand these discharge instructions. I have received a written copy of the plan/instructions. If I have questions, I am aware that I should contact my doctor. Patient/Fountain Helper Signature: Date/Time: Relationship to Patient: Witness Name/Signature: Date/Time: [facility] 06-27-2022 Discharge summary Date of Service 06/27/2022 [...] AM Digitally Signed by GERONIMO JOY MD [facility] 06-26-2022 Cardiology Progress note Date of Service [...] LULU MARTINEZ MD on 06/26/2022 11:55 AM [facility] 06-26-2022 History and physical note Date of Service 06/25/2022 Chief Complaint SOB History of Present Illness This is a 52-year-old male history of asthma, CHF who presents to the hospital as a transfer from [place] due to CHF exacerbation. Is a patient [...] chest discomfort with ambulation as well. At [place] his BNP was 24,001 and 81. Chest x-ray showed no acute radiographic process. Patient was transferred to [facility] for further management of CHF. He did [...] LULU MARTINEZ MD on 06/25/2022 04:08 PM [facility] 06-26-2022 Cardiology Progress note Date of Service [...] LULU MARTINEZ MD on 06/26/2022 11:55 AM [facility] 06-25-2022 Nurse Progress note Spoke with patients sailing officer J Carlos Regan regarding the patients house arrest ankle [...] by KUMAR Francis on 06/25/2022 03:58 PM [facility] 06-25-2022 Respiratory therapy Hospital Progress note Respiratory [...] Chest X-Ray : Clear/not ordered CONCHIS Stiles - 06/25/2022 14:52 EST Breath Sounds (RT) : Wheezes CONCHIS Stiles - 06/25/2022 14:56 EST Level of Activity : Ambulatory with assistance CONCHIS Stiles - 06/25/2022 14:52 EST Surgical Status : No surgeries Respiratory Pattern (RT) : Regular RR=12-20 Cough (RT) : Strong, non-productive Mental Status : Alert, oriented CONCHIS Stiles - 06/25/2022 14:50 EST Digitally Signed by CONCHIS Stiles on 06/25/2022 02:56 PM [facility] Acute CHF exacerbation, LVEF unknown AVINASH on [...] Appointments Appointment Date:07/20/2022 10:30:00 AM Scheduled Provider: Location:[facility] Appointment Type:CV OV [facility] 02-04-2023 History and physical note Date of Service 06/25/2022 Chief Complaint SOB History of Present Illness This is a 52-year-old male history of asthma, CHF who presents to the hospital as a transfer from [place] due to CHF exacerbation. Is a patient [...] chest discomfort with ambulation as well. At [place] his BNP was 24,001 and 81. Chest x-ray showed no acute radiographic process. Patient was transferred to [facility] for further management of CHF. He did [...] LULU MARTINEZ MD on 06/25/2022 04:08 PM [id number] Note ORIGINAL EXAMINATION: ONE XRAY VIEW OF [...] Date: 06/25/2022 6:34:59 AM Ordering Provider: HERON PETERSON [facility]02-04-2023 Note ORIGINAL EXAMINATION: ONE XRAY VIEW OF [...] Sign Date: 06/25/2022 6:34:59 AM Ordering Provider: [facility]05-11-2022 Hospital Discharge instructions Patient Education 09/29/2021 [...] a living will and durable power of litigation attorney, can help you feel more secure about the future. Social support helps alleviate stress and helps your stick with your healthy lifestyle changes. Without social support, you may end up back in the hospital. [id number] [employer]. [address] [place] [address]. All rights reserved. This information is not intended as a substitute for professional medical care. Always follow yourhealthcare professional's instructions. Follow Up Care 09/29/2021 04:55:42 With:RAGINI FERNANDEZ MD Address: [facility] [place] [address]- When:2-4 days [facility] 04-28-2022 History of Present illness Narrative* Crissy Turner RN - 09/16/2021 9:08 AM EDT [facility] Enrollment Provider Action/FYI: h/o COPD Unable to reach patient, left VM Patient referred by: [facility] Sarah Contact made with patient: No - 3rd attempt to reach patient, left another message: Hi my name is Crissy Turner RN and I am calling from the [facility] on behalf of your PCP, Ragini Fernandez MD. We are excited to share with you a new program to help you manage your health. Please call meback at [phone]. I hope you can take the time to speak with me. (Keep encounter open for additional two business days in case patient calls back. Close encounter if no response by end of second business day) Closing: Could not reach the patient after x3 attempted outreaches. END OUTREACH [facility] History of Past illness Narrative* Problem Noted Date Resolved Date Chronic systolic CHF (congestive heart failure) 11/03/2017 08/13/2020 Tooth, impacted 05/20/2015 documented as of this encounter (statuses as of 09/16/2021) [facility] History of Past illness Narrative* Problem Noted Date Resolved Date Chronic systolic CHF (congestive heart failure) 11/03/2017 08/13/2020 Tooth, impacted 05/20/2015 documented as of this encounter (statuses as of 07/14/2022) [facility] History of Past illness Narrative* Problem Noted Date Resolved Date Chronic systolic CHF (congestive heart failure) 11/03/2017 08/13/2020 Tooth, impacted 05/20/2015 documented as of this encounter (statuses as of 08/04/2022) [facility] No data available for this section [facility] Hospital Discharge instructions No data available for this section [facility] Note* HERON PETERSON MD: SIGN, VERIFY Event Display: EKG [ED AOH] - CV Authored Date: [id number] [facility] Note* ALBERTA MCKEON MD: SIGN, VERIFY Event Display: VL Venous US/Doppler Both Legs(for DVT) [facility] Progress note No data available for this section [facility] Summary Purpose Family History No Family History [...] or prosecute any alcohol or drug abuse patient.[facility] the event this information is protected by the Federal Confidentiality of Alcohol and Drug Abuse Patient Records regulations: The Federal rules restrict any use of the information to criminally investigate or prosecute any alcohol or drug abuse patient.[facility] Hospital[facility] the event this information is protected by the Federal Confidentiality of Alcohol and Drug Abuse Patient Records regulations: The Federal rules restrict any use of the information to criminally investigate or prosecute any alcohol or drug abuse patient.[facility] Reason for Visit (unrecogniz ed section and content) Reason Comments Social Work Services Reason Comments Forms/letter Care Teams (unrecognized sec tion and content) [employer] Well[employer] Director Relationship Specialty Start Date End Date Ragini Fernandez MD [address] [place], [place] [id number] PCP - General Family Medicine 05/20/15 [employer] Director Relationship Specialty Start Date End Date Ragini Fernandez MD [address] [place], [place] [address] PCP - General Family Medicine 05/20/15 Care Team (unrecognized sect ion and content) Care Team Personnel Name: RAGINI FERNANDEZ MD Member Role: Primary Care Physician Address: Address: [address] [place] [address]- [place] Name: HERON PETERSON MD Position: ED Physician Address: Address: [facility] [address] [place] [address]- [place] Care Team Personnel Name: RAGINI FERNANDEZ MD Member Role: Primary Care Physician Address: Address: [address] [place] [address]- [place] (unrecognized sect ion and content) No Status Records FoundNo Status Records Found INFORMATION SOURCE (unrecogn ized section and content) DATE CREATED AUTHOR AUTHOR'S ORGANIZ ATION 06/17/2023 [facility] FOR RECORDS PERTAINING TO PATIENTS WHO ARE [...] BE BASED ON THE PRIMARY CLINICAL RECORDS. [employer] provides no warranty or guarantee of the accuracy or completeness of information in this document.
== END | disposition home or self-care (01) ==
LOC: LAB 13:56
PROVIDERS: PCP Family Medicine; Referring Provider Internal Medicine Cardiovascular Disease; Visit Provider Internal Medicine Cardiovascular Disease
DX: I50.9 Heart failure, unspecified (principal)
CPT/HCPCS: 36415; 80048

== ENCOUNTER → 2024-02-07 | Outpatient (CLI) | payer MEDICARE, MEDICAID, SELFPAY ==
--- NOTE | 2024-02-07 10:59 | ECHOL_ITS ---
Version 2 Reason For Study: LEFT VENTRICULAR SYSTOLIC DYSFUNCTION Procedure This was a limited 2D transthoracic echocardiogram. Myocardial strain analysis was performed in this exam to aid in the assessment of cardiac function. Exam performed in department. Left Ventricle Normal LV size. Left ventricular systolic function is lower limits of normal. The left ventricular ejection fraction is 50 %. Stage 1 diastolic dysfunction. Mid-Lateral : Mildly hypokinetic. Right Ventricle Normal RV size. Normal systolic function. Atria Normal left atrium. Normal right atrium. Mitral Valve Normal mitral valve. Tricuspid Valve Normal tricuspid valve. Aortic Valve Trisinus/trileaflet aortic valve. Pulmonic Valve Normal pulmonic valve. Great Vessels Normal aortic root. The pulmonary artery is normal size. Inferior vena cava collapse with respiration. Pericardium/Pleural No pericardial effusion. MMode/2D Measurements & Calculations LVIDd: 5.0 cm IVSd: 1.4 cm LVOT diam: 2.1 cm LVIDs: 3.8 cm LVPWd: 1.2 cm LVOT area: 3.5 cm2 RVDd: 3.6 cm FS: 23.2 % LAV(MOD-bp): 52.8 ml LVAd ap4: 30.6 cm2 LVAd ap2: 29.3 cm2 LAV(MOD-bp) Indexed: 23.1 ml/m2 LVLd ap4: 9.0 cm LVLd ap2: 9.1 cm LAV(MOD-sp2): 66.5 ml EDV(MOD-sp4): 83.5 ml EDV(MOD-sp2): 78.4 ml LAV(MOD-sp4): 31.0 ml EDV(sp4-el): 88.3 ml EDV(sp2-el): 79.9 ml LVAs ap4: 20.2 cm2 LVAs ap2: 19.5 cm2 LVLs ap4: 7.9 cm LVLs ap2: 8.4 cm ESV(MOD-sp4): 43.1 ml ESV(MOD-sp2): 41.5 ml ESV(sp4-el): 43.8 ml ESV(sp2-el): 38.7 ml EF(MOD-sp4): 48.4 % EF(MOD-sp2): 47.0 % EF(sp4-el): 50.4 % SV(MOD-sp4): 40.5 ml SV(MOD-sp2): 36.8 ml SV(sp4-el): 44.5 ml Ao sinus diam: 3.[address] Junction: 3.1 cm LA A4 area: 12.4 cm2 LA dimension(2D): 3.6 cm RA A4 area: 12.9 cm2 TAPSE: 1.8 cm Time Measurements MV dec time: 0.34 sec Doppler Measurements & Calculations MV E max ian: 55.1 cm/sec Lat Peak E' Ian: 6.5 cm/sec Med Peak E' Ian: 6.7 cm/sec MV A max ian: 79.4 cm/sec E/E' lat: 8.4 E/E' med: 8.2 MV E/A: 0.69 MV dec slope: 163.7 cm/sec2 ECHO/Echo, Limited Study Interpretation Summary Normal LV size. Left ventricular systolic function is lower limits of normal. The left ventricular ejection fraction is 50 %. Stage 1 diastolic dysfunction. Compared to previous study, the left ventricular systolic function has improved .. The global longitudinal strain = -14.5% (abnormal). The global longitudinal strain is mode rately abnormal. Ordering Physician: Sharon Snow Referring Physician: Sharon Snow Performed By: Awilda Nava RDCS
== END | disposition home or self-care (01) ==
PROVIDERS: PCP Family Medicine; Referring Provider Nurse Practitioner Gerontology; Visit Provider Nurse Practitioner Gerontology
DX: I51.9 Heart disease, unspecified (principal)
CPT/HCPCS: 93308